=== PATIENT | male | born 1945 | race African-American/Black ===

== ENCOUNTER 2021-09-10 16:52 | Inpatient (IN) ==
[2021-09-10] MEDS ORDERED: SODIUM CHLORIDE 0.9% 1000ML 1,000 ML IV ONE (17:54)
--- NOTE | 2021-09-10 18:33 | XRay Report ---
SINGLE VIEW CHEST CLINICAL HISTORY: Atypical chest pain. FINDINGS: 2 AP, portable, upright chest radiographs are compared to study dated 08/18/2014. The heart is normal in size. There is abnormal density/configuration of the aortic arch/left hilum. The lungs a nd pleural spaces are clear. No pneumothorax is seen. The skeletal structures are osteopenic. The bon y thorax is grossly intact. IMPRESSION: 1. The lungs are clear. 2. There is abnormal density/configuration of the aortic arch. This is of indeterminant significance and correlation with a chest CT is recommended for further assessment. ACT 112: Negative or not required by law. Electronically signed by: Agustín Jeffries M.D. 09/10/2021 6:31 PM
--- NOTE | 2021-09-10 18:38 | CT Scan Report ---
CT SCAN OF THE BRAIN WITHOUT IV CONTRAST CLINICAL HISTORY: Generalized weakness. COMPARISON STUDY: CT of the brain dated 08/18/2014. MRI of the brain dated 08/19/2014. TECHNIQUE: Unenhanced axial CT scan of the brain is performed from the vertex to the skull base. A do se lowering technique was utilized adhering to the principles of ALARA. CT DOSE: 994.86 mGycm FINDINGS: Brain parenchyma: There are age-related involutional changes noting minimal subcortical and perivent ricular microangiopathic change. There is no hemorrhage, mass effect, or evidence of acute territoria l ischemia by CT criteria. Low-attenuation within the right periventricular white matter is unchanged and consistent with a remote insult. 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 Candelario-white matter differentiation is preserved. No extra-axial fluid rosy ection is seen. Ventricles, sulci, cisterns: Prominent secondary to involutional change. Intracranial vasculature: There is mild atherosclerotic calcification of the cavernous carotid arteri es. Calvarium: Unremarkable. Sinuses and mastoids: The visualized paranasal sinuses are clear. The mastoid air cells are well pneu matized. Orbits: The bony orbits are grossly intact. IMPRESSION: There is no hemorrhage, mass effect, or evidence of acute territorial ischemia by CT denise pringle. ACT 112: Negative or not required by law. Electronically signed by: Agustín Jeffries M.D. 09/10/2021 6:37 PM
[2021-09-10 18:55] LABS: Eosinophils # (auto) 0.01 K/uL (0-0.5); Hematocrit (blood only) 31.7 % (42-52); Hemoglobin 10.8 g/dL (14.0-18.0); Immature Granulocytes % (auto) 0.5 %; Lymphocytes # (auto) 0.84 K/uL (1.2-3.4); Lymphocytes % (auto) 3.9 %; Mean Corpuscular Hemoglobin 32.3 pg (25-34); Mean Corpuscular Hgb Conc 34.1 g/dL (32-36); Mean Corpuscular Volume 94.9 fL (80-100); Mean Platelet Volume 9.5 fL (7.4-10.4); Monocytes # (auto) 1.11 K/uL (0.11-0.59); Monocytes % (auto) 5.1 %; Neutrophils # (auto) 19.55 K/uL (1.4-6.5); Neutrophils % (auto) 90.5 %; Platelet Count 352 K/uL (130-400); RDW Coefficient of Variation 14.7 % (11.5-14.5); Red Blood Count 3.34 M/uL (4.7-6.1); White Blood Count 21.61 K/uL (4.8-10.8)
[2021-09-10 19:23] LABS: Albumin Level 2.4 gm/dl (3.4-5.0); BUN Creatinine Ratio 18.1 (10-20); Calcium 8.7 mg/dl (8.5-10.1); Creatinine Clr Calc Pharmacy 16.7 ml/min; Est GFR (African American) 22.5 ml/min; Est GFR (Non-African American) 19.4 ml/min; Magnesium 2.2 mg/dl (1.8-2.4); Potassium 4.9 mmol/L (3.5-5.1)
[2021-09-10 19:45] LABS: Albumin Globulin Ratio 0.6 (0.9-2); Globulin 4.2 gm/dl (2.5-4.0); Phosphorus 4.6 mg/dl (2.5-4.9); Total Protein 6.6 gm/dl (6.4-8.2); Troponin I 0.061 ng/ml (0-0.045)
--- NOTE | 2021-09-10 21:21 | Emergency Department Note ---
Impression & Plan Acute on chronic kidney failure, Leukocytosis, Lesion of liver, Ileocolic intussusception, Elevated lactic acid level ED Provider Note NAME: ANTHONY CHAWLA AGE: 75 SEX: M ARRIVES VIA: Walk-In INFORMANT: Patient, ED PROVIDER(S): Moinco Daniel MD CHIEF COMPLAINT: Weakness, decreased oral intake. 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 He denies any cough, congestion, fevers, chills, nausea/vomiting, diarrhea or urinary symptoms. He has been vaccinated for COVID-19 numerous months ago and is due to get his booster this month. He denies any known COVID-19 exposures. On arrival the patient is fatigued appearing but no acute distress, afebrile with stable vital signs. Of note, BP 70/40s upon arriving to triage however normotensive subsquently. He appears clinically dry. 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 He has no new focal neurologic deficits. Abdomen is benign. EKG without overt acute ischemia. Chest x-ray without acute cardiopulmonary process and note of abnormal density/configuration of the aortic arch which does appear similar to previous chest x-ray in 2014. WBC 21.6K, H/H 10.8/31.7 without recent values for comparison. Platelets within normal limits. Chemistry without metabolic acidosis. Creatinine is 3 increased from patient's baseline of 1.5-2. Initial lactic acid elevated at 2.5 which did normalize to 1.6 following IV fluid hydration. LFTs are elevated with AST 620, ALT 180 and alk phos 320 without recent values for comparison. Total bilirubin is 1.0. Troponin is mildly elevated at 0.061, however given no chest pain unlikely represent acute cardiac process. Lipase not elevated. Procalcitonin is elevated at 40 however in the setting of acute on chronic renal failure. UA without convincing evidence of infection. COVID-[address] of the chest and abdomen pelvis was performed without contrast given the patient's renal insufficiency. These findings were notable for numerous liver lesions suspicious for hepatic metastases as well as ileocolic intussusception with suspicion for underlying colonic lesion. Upon reevaluation the patient did report feeling improved after IV fluid hydration. I did review these findings with him and he agreed with plan for admission. Patient was treated empirically with Zosyn and Daptomycin following blood cultures. Case was discussed with Dr. Wright, [facility], who will evaluate the patient for admission. Triage Nursing notes reviewed and agree them. Prior medical records reviewed Vital Signs: reviewed and remarkable for low blood pressure. Differential diagnosis: Infection, dehydration, metabolic abnormality, hypo/hyperglycemia, electrolyte disturbance, anemia, hypoxia, cardiac sources, intracerebral event, toxicologic, neurologic, as well as other pathologies. ER treatment provided: See below. Diagnostics interpreted by me: ECG: Sinus tachycardia 110 bpm, no ectopy, no overt ST elevation or depression, QTC 414, QRS 64. Cardiac Monitoring: An order for continuous cardiac monitoring was placed and demonstrated Sinus tachycardia 110 bpm, no ectopy. Laboratory studies: See below Imaging studies: See below Consultation(s): Case was discussed with Dr. Wright, [facility], who will evaluate the patient for admission. HPI: The patient is a pleasant 75-year-old gentleman with a past medical history of CKD, hypertension, hyperparathyroidism, vitamin D deficiency, history of hemorrhagic stroke in 2002 with residual left-sided weakness who presents to emergency department accompanied by his personal trainer for evaluation of ongoing generalized weakness and decreased appetite over the past 4 days. He denies any cough, congestion, fevers, chills, nausea/vomiting, diarrhea or urinary symptoms. He has been vaccinated for COVID-19 numerous months ago and is due to get his booster this month. He denies any known COVID-19 exposures. ROS: See above HPI for pertinent positives & negatives. A total of 10 systems reviewed and were otherwise negative. PAST MEDICAL HISTORY:See Below PAST SURGICAL HISTORY:See Below FAMILY HISTORY:See Below SOCIAL HISTORY:See Below HOME MEDICATIONS:See Below ALLERGIES:See Below VITALS:See Below PHYSICAL EXAMINATION: GENERAL: Awake, alert, fatigued-appearing, in no distress HENT: Normocephalic, atraumatic. Oropharynx with dry mucous membranes and otherwise unremarkable. EYES: Normal conjunctiva. Sclera non-icteric. NECK: Supple. No nuchal rigidity. FROM. No JVD. RESPIRATORY: Clear to auscultation. CARDIAC: Regular rate, normal rhythm. Extremities warm and well perfused. Pulses equal. ABDOMEN: Soft, non-distended. No tenderness to palpation. No rebound or guarding. No masses. RECTAL: Deferred. MUSCULOSKELETAL: Chest examination reveals no tenderness. The back is symmetrical on inspection without obvious abnormality. There is no CVA tenderness to palpation. No joint edema. LOWER EXTREMITIES: Calves are equal size bilaterally and non-tender. No edema. No discoloration. 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 He has no new focal neurologic deficits. SKIN: No rash or jaundice noted. Monico Daniel MD Past Med/Surg History Medical History CKD (chronic kidney disease) Hyperlipidemia Hypertension Stroke Family History Other Heart disease Social History Smoking Status: Never smoker Feels Safe at Home: Yes Allergies Allergies Allergy/AdvReac Type Severity Reaction Status Date / Time No Known Allergies Allergy Unknown Verified 09/10/21 17:59 Home Meds Home Medications Medication Instructions Recorded Confirmed cholecalciferol (vitamin D3) 50 2,000 unit PO DAILY 09/10/21 09/10/21 mcg (2,000 unit) capsule (Vitamin D3) diltiazem HCl 180 mg 360 mg PO DAILY 09/10/21 09/10/21 capsule,extended release 24 hr hydralazine 25 mg tablet 25 mg PO TID 09/10/21 09/10/21 lisinopril 5 mg tablet 5 mg PO DAILY 09/10/21 09/10/21 metoprolol tartrate 25 mg tablet 12.5 mg PO BID 09/10/21 09/11/21 simvastatin 20 mg tablet 20 mg PO DAILY 09/10/21 09/10/21 calcitriol 0.5 mcg capsule 0.5 mcg PO DAILY 09/11/21 09/11/21 Results & Data (ED) Vital Signs Vital Signs - 24 hr 09/10/21 16:59 09/10/21 17:35 09/10/21 17:36 Temperature 36.4 C L Temperature Source Oral Pulse Rate 120 H 107 H Pulse Rate [Apical] 105 H Pulse Rate from SpO2 Sensor Respiratory Rate 20 22 20 Respiratory Effort / Characteristics Non-Labored Spontaneous Respiratory Depth Normal Blood Pressure 73/45 L Blood Pressure [Right Arm] 114/68 Blood Pressure Mean 54 Blood Pressure Mean [Right Arm] 83 Pulse Oximetry 97 95 Oxygen Delivery Method Room Air Room Air Sepsis Recent Fever Within 48 Hours No Sepsis New/Unexplained Change in Mental Status N/A Sepsis Action Taken by Nursing No Action Required 09/10/21 17:49 09/10/21 18:00 09/10/21 19:00 Temperature Temperature Source Pulse Rate 100 H 88 Pulse Rate [Apical] Pulse Rate from SpO2 Sensor 90 Respiratory Rate 18 15 Respiratory Effort / Characteristics Respiratory Depth Blood Pressure 110/71 Blood Pressure [Right Arm] Blood Pressure Mean 84 Blood Pressure Mean [Right Arm] Pulse Oximetry 95 98 Oxygen Delivery Method Room Air Room Air Sepsis Recent Fever Within 48 Hours Sepsis New/Unexplained Change in Mental Status Sepsis Action Taken by Nursing 09/10/21 19:30 09/10/21 20:00 09/10/21 20:30 Temperature Temperature Source Pulse Rate 85 80 70 Pulse Rate [Apical] Pulse Rate from SpO2 Sensor 86 82 72 Respiratory Rate 17 15 12 Respiratory Effort / Characteristics Respiratory Depth Blood Pressure 116/71 111/69 104/64 Blood Pressure [Right Arm] Blood Pressure Mean 86 83 77 Blood Pressure Mean [Right Arm] Pulse Oximetry 98 99 99 Oxygen Delivery Method Room Air Room Air Room Air Sepsis Recent Fever Within 48 Hours Sepsis New/Unexplained Change in Mental Status Sepsis Action Taken by Nursing 09/10/21 21:00 09/10/21 21:30 09/10/21 22:00 Temperature Temperature Source Pulse Rate 79 77 77 Pulse Rate [Apical] Pulse Rate from SpO2 Sensor 80 78 78 Respiratory Rate 13 5 L 4 L Respiratory Effort / Characteristics Respiratory Depth Blood Pressure 113/68 112/67 120/64 Blood Pressure [Right Arm] Blood Pressure Mean 83 82 82 Blood Pressure Mean [Right Arm] Pulse Oximetry 99 99 98 Oxygen Delivery Method Room Air Room Air Room Air Sepsis Recent Fever Within 48 Hours Sepsis New/Unexplained Change in Mental Status Sepsis Action Taken by Nursing 09/10/21 22:30 09/10/21 23:00 09/11/21 00:00 Temperature Temperature Source Pulse Rate 84 82 84 Pulse Rate [Apical] Pulse Rate from SpO2 Sensor 85 83 85 Respiratory Rate 19 17 12 Respiratory Effort / Characteristics Respiratory Depth Blood Pressure 110/68 108/64 106/61 Blood Pressure [Right Arm] Blood Pressure Mean 82 78 76 Blood Pressure Mean [Right Arm] Pulse Oximetry 98 99 99 Oxygen Delivery Method Room Air Room Air Room Air Sepsis Recent Fever Within 48 Hours Sepsis New/Unexplained Change in Mental Status Sepsis Action Taken by Nursing 09/11/21 00:30 09/11/21 01:00 Temperature Temperature Source Pulse Rate 82 75 Pulse Rate [Apical] Pulse Rate from SpO2 Sensor 82 75 Respiratory Rate 10 L 12 Respiratory Effort / Characteristics Respiratory Depth Blood Pressure 113/60 108/59 L Blood Pressure [Right Arm] Blood Pressure Mean 77 75 Blood Pressure Mean [Right Arm] Pulse Oximetry 99 98 Oxygen Delivery Method Room Air Room Air Sepsis Recent Fever Within 48 Hours Sepsis New/Unexplained Change in Mental Status Sepsis Action Taken by Nursing Laboratory Data Attestation: I reviewed the patient's lab results. Result diagrams: 09/10/21 18:46 09/10/21 18:46 Lab Results 09/10/21 09/10/21 09/10/21 Range/Units 18:08 18:08 18:46 WBC (4.8-10.8) K/uL RBC (4.7-6.1) M/uL Hgb (14.0-18.0) g/dL Hct (42-52) % MCV (80-100) fL MCH (25-34) pg MCHC (32-36) g/dL RDW Std Deviation (36.4-46.3) fL RDW Coeff of Cliff (11.5-14.5) % Plt Count (130-400) K/uL MPV (7.4-10.4) fL Immature Gran % (Auto) % Neut % (Auto) % Lymph % (Auto) % [place] % (Auto) % Eos % (Auto) % Baso % (Auto) % Neut # (Auto) (1.4-6.5) K/uL Lymph # (Auto) (1.2-3.4) K/uL [place] # (Auto) (0.11-0.59) K/uL Eos # (Auto) (0-0.5) K/uL Baso # (Auto) (0-0.2) K/uL Immature Gran # (Auto) (0.00-0.02) K/uL Sodium 144 (136-145) mmol/L Potassium 4.9 (3.5-5.1) mmol/L Chloride 110 H (98-107) mmol/L Carbon Dioxide 23 (21-32) mmol/L Anion Gap 11.0 (3-11) BUN 55 H (7-18) mg/dl Creatinine 3.04 H (0.6-1.4) mg/dl Est Cr Clr Drug Dosing 16.7 ml/min Est GFR ( Amer) 22.5 ml/min Est GFR (Non-Af Amer) 19.4 ml/min BUN/Creatinine Ratio 18.1 (10-20) Glucose 110 H (70-99) mg/dl Lactate (0.4-2.0) mmol/L Calcium 8.7 (8.5-10.1) mg/dl Phosphorus 4.6 (2.5-4.9) mg/dl Magnesium 2.2 (1.8-2.4) mg/dl Total Bilirubin 1.0 (0.2-1) mg/dl AST 620 H (15-37) U/L ALT 180 H (12-78) U/L Alkaline Phosphatase 321 H (45-117) U/L Troponin I 0.061 H* (0-0.045) ng/ml Total Protein 6.6 (6.4-8.2) gm/dl Albumin 2.4 L (3.4-5.0) gm/dl Globulin 4.2 H (2.5-4.0) gm/dl Albumin/Globulin Ratio 0.6 L (0.9-2) Lipase 105 (73-393) U/L Procalcitonin (0-0.5) ng/ml Urine Color Urine Appearance (Clear) Urine pH (4.5-7.5) Ur Specific Webb (1.000-1.030) Urine Protein (Negative) Urine Glucose (UA) (Negative) Urine Ketones (Negative) Urine Blood (Negative) Urine Nitrite (Negative) Urine Bilirubin (Negative) Urine Urobilinogen (Negative) Ur Leukocyte Esterase (Negative) Urine WBC (Auto) (0-5) /hpf Urine RBC (Auto) (0-4) /hpf U Hyaline Cast (Auto) (0-5) /lpf U Epithel Cells (Auto) (0-5) /lpf Urine Bacteria (Auto) (Negative) Ur Renal Epithelial Cell Urine Yeast COVID-19 Eval Order [address]19 [facility] SARS-CoV-2 (PCR) NEGATIVE (Negative) 09/10/21 09/10/21 09/10/21 Range/Units 18:46 20:07 20:07 WBC 21.61 H (4.8-10.8) K/uL RBC 3.34 L (4.7-6.1) M/uL Hgb 10.8 L (14.0-18.0) g/dL Hct 31.7 L (42-52) % MCV 94.9 (80-100) fL MCH 32.3 (25-34) pg MCHC 34.1 (32-36) g/dL RDW Std Deviation 51.0 H (36.4-46.3) fL RDW Coeff of Cliff 14.7 H (11.5-14.5) % Plt Count 352 (130-400) K/uL MPV 9.5 (7.4-10.4) fL Immature Gran % (Auto) 0.5 % Neut % (Auto) 90.5 % Lymph % (Auto) 3.9 % [place] % (Auto) 5.1 % Eos % (Auto) 0.0 % Baso % (Auto) 0.0 % Neut # (Auto) 19.55 H (1.4-6.5) K/uL Lymph # (Auto) 0.84 L (1.2-3.4) K/uL [place] # (Auto) 1.11 H (0.11-0.59) K/uL Eos # (Auto) 0.01 (0-0.5) K/uL Baso # (Auto) 0.00 (0-0.2) K/uL Immature Gran # (Auto) 0.10 H (0.00-0.02) K/uL Sodium (136-145) mmol/L Potassium (3.5-5.1) mmol/L Chloride (98-107) mmol/L Carbon Dioxide (21-32) mmol/L Anion Gap (3-11) BUN (7-18) mg/dl Creatinine (0.6-1.4) mg/dl Est Cr Clr Drug Dosing ml/min Est GFR ( Amer) ml/min Est GFR (Non-Af Amer) ml/min BUN/Creatinine Ratio (10-20) Glucose (70-99) mg/dl Lactate 2.5 H* (0.4-2.0) mmol/L Calcium (8.5-10.1) mg/dl Phosphorus (2.5-4.9) mg/dl Magnesium (1.8-2.4) mg/dl Total Bilirubin (0.2-1) mg/dl AST (15-37) U/L ALT (12-78) U/L Alkaline Phosphatase (45-117) U/L Troponin I (0-0.045) ng/ml Total Protein (6.4-8.2) gm/dl Albumin (3.4-5.0) gm/dl Globulin (2.5-4.0) gm/dl Albumin/Globulin Ratio (0.9-2) Lipase (73-393) U/L Procalcitonin 40.28 H (0-0.5) ng/ml Urine Color Urine Appearance (Clear) Urine pH (4.5-7.5) Ur Specific Webb (1.000-1.030) Urine Protein (Negative) Urine Glucose (UA) (Negative) Urine Ketones (Negative) Urine Blood (Negative) Urine Nitrite (Negative) Urine Bilirubin (Negative) Urine Urobilinogen (Negative) Ur Leukocyte Esterase (Negative) Urine WBC (Auto) (0-5) /hpf Urine RBC (Auto) (0-4) /hpf U Hyaline Cast (Auto) (0-5) /lpf U Epithel Cells (Auto) (0-5) /lpf Urine Bacteria (Auto) (Negative) Ur Renal Epithelial Cell Urine Yeast COVID-19 Eval Order SARS-CoV-2 (PCR) (Negative) 09/10/21 09/10/21 Range/Units 20:49 22:07 WBC (4.8-10.8) K/uL RBC (4.7-6.1) M/uL Hgb (14.0-18.0) g/dL Hct (42-52) % MCV (80-100) fL MCH (25-34) pg MCHC (32-36) g/dL RDW Std Deviation (36.4-46.3) fL RDW Coeff of Cliff (11.5-14.5) % Plt Count (130-400) K/uL MPV (7.4-10.4) fL Immature Gran % (Auto) % Neut % (Auto) % Lymph % (Auto) % [place] % (Auto) % Eos % (Auto) % Baso % (Auto) % Neut # (Auto) (1.4-6.5) K/uL Lymph # (Auto) (1.2-3.4) K/uL [place] # (Auto) (0.11-0.59) K/uL Eos # (Auto) (0-0.5) K/uL Baso # (Auto) (0-0.2) K/uL Immature Gran # (Auto) (0.00-0.02) K/uL Sodium (136-145) mmol/L Potassium (3.5-5.1) mmol/L Chloride (98-107) mmol/L Carbon Dioxide (21-32) mmol/L Anion Gap (3-11) BUN (7-18) mg/dl Creatinine (0.6-1.4) mg/dl Est Cr Clr Drug Dosing ml/min Est GFR ( Amer) ml/min Est GFR (Non-Af Amer) ml/min BUN/Creatinine Ratio (10-20) Glucose (70-99) mg/dl Lactate 1.6 (0.4-2.0) mmol/L Calcium (8.5-10.1) mg/dl Phosphorus (2.5-4.9) mg/dl Magnesium (1.8-2.4) mg/dl Total Bilirubin (0.2-1) mg/dl AST (15-37) U/L ALT (12-78) U/L Alkaline Phosphatase (45-117) U/L Troponin I (0-0.045) ng/ml Total Protein (6.4-8.2) gm/dl Albumin (3.4-5.0) gm/dl Globulin (2.5-4.0) gm/dl Albumin/Globulin Ratio (0.9-2) Lipase (73-393) U/L Procalcitonin (0-0.5) ng/ml Urine Color Dark Yellow Urine Appearance Cloudy A (Clear) Urine pH 5.0 (4.5-7.5) Ur Specific Webb 1.020 (1.000-1.030) Urine Protein 2+ H (Negative) Urine Glucose (UA) Negative (Negative) Urine Ketones Trace H (Negative) Urine Blood Trace H (Negative) Urine Nitrite Negative (Negative) Urine Bilirubin 1+ H (Negative) Urine Urobilinogen Positive H (Negative) Ur Leukocyte Esterase Negative (Negative) Urine WBC (Auto) 1-5 (0-5) /hpf Urine RBC (Auto) 0-4 (0-4) /hpf U Hyaline Cast (Auto) 1-5 (0-5) /lpf U Epithel Cells (Auto) >30 H (0-5) /lpf Urine Bacteria (Auto) Negative (Negative) Ur Renal Epithelial Cell Not Reportable Urine Yeast Not Reportable COVID-19 Eval Order SARS-CoV-2 (PCR) (Negative) Administered Medications Discontinued Medications Sodium Chloride (Nss 1000ml) 1,000 mls @ 999 mls/hr IV .[id number] ONE Stop: 09/10/21 18:54 Last Infusion: 09/10/21 19:10 Dose: 0 mls/hr Documented by: [id number] Admin: 09/10/21 18:09 Dose: 999 mls/hr Documented by: [id number] Piperacillin Sod/Tazobactam Sod (Zosyn) 4.5 gm in 120 mls @ 240 mls/hr IV NOW ONE Stop: 09/10/21 22:09 Last Infusion: 09/10/21 23:31 Dose: 0 mls/hr Documented by: [id number] Admin: 09/10/21 23:01 Dose: 240 mls/hr Documented by: [id number] Daptomycin 475 mg/ Syringe 9.5 mls @ 4.75 mls/min IV NOW ONE; Protocol Stop: 09/10/21 21:46 Last Admin: 09/10/21 23:00 Dose: 4.75 mls/min Documented by: [id number] Imaging Data Radiologist's Impression: Chest X-Ray 09/10/21 17:54 SINGLE VIEW CHEST CLINICAL HISTORY: Atypical chest pain. FINDINGS: 2 AP, portable, upright chest radiographs are compared to study dated 08/18/2014. The heart is normal in size. There is abnormal density/configuration of the aortic arch/left hilum. The lungs and pleural spaces are clear. No pneumothorax is seen. The skeletal structures are osteopenic. The bony thorax is grossly intact. IMPRESSION: 1. The lungs are clear. 2. There is abnormal density/configuration of the aortic arch. This is of indeterminant significance and correlation with a chest CT is recommended for further assessment. ACT 112: Negative or not required by law. Electronically signed by: gAustín Jeffries M.D. 09/10/2021 6:[address] 09/10/21 17:57 CT SCAN OF THE BRAIN WITHOUT IV CONTRAST CLINICAL HISTORY: Generalized weakness. COMPARISON STUDY: CT of the brain dated 08/18/2014. MRI of the brain dated 08/19/2014. TECHNIQUE: Unenhanced axial CT scan of the brain is performed from the vertex to the skull base. A dose lowering technique was utilized adhering to the principles of ALARA. CT DOSE: 994.86 mGycm FINDINGS: Brain parenchyma: There are age-related involutional changes noting minimal subcortical and periventricular microangiopathic change. There is no hemorrhage, mass effect, or evidence of acute territorial ischemia by CT criteria. Low-attenuation within the right periventricular white matter is unchanged and consistent with a remote insult. Chronic infarcts are again seen in the right thalamus and the right cerebellar hemisphere. Candelario-white matter differentiation is preserved. No extra-axial fluid collection is seen. Ventricles, sulci, cisterns: Prominent secondary to involutional change. Intracranial vasculature: There is mild atherosclerotic calcification of the cavernous carotid arteries. Calvarium: Unremarkable. Sinuses and mastoids: The visualized paranasal sinuses are clear. The mastoid air cells are well pneumatized. Orbits: The bony orbits are grossly intact. IMPRESSION: There is no hemorrhage, mass effect, or evidence of acute territorial ischemia by CT criteria. ACT 112: Negative or not required by law. Electronically signed by: Agustín Jeffries M.D. 09/10/2021 6:37 PM Abdomen/Pelvis CT 09/10/21 19:53 CT SCAN OF THE CHEST, ABDOMEN, AND PELVIS WITHOUT IV CONTRAST CLINICAL HISTORY: Generalized weakness. Leukocytosis. COMPARISON STUDY: Chest x-ray dated 09/10/2021. TECHNIQUE: Unenhanced CT scan of the chest, abdomen, and pelvis was performed from the thoracic inlet to the proximal femora. Images are reviewed in the axial, sagittal, and coronal planes. IV contrast was not administered due to po or renal function. Note that the examination was performed in significantly suboptimal fashion without oral and IV contrast. There is motion artifact, as well as streak artifact from the arms which could not be elevated above the chest or abdomen. A dose lowering technique was utilized adhering to the principles of ALARA. CT DOSE: 483.62 mGy.cm FINDINGS: CHEST: Thyroid: The thyroid gland is enlarged and heterogeneous. Low-attenuation nodules measure up to 2.7 cm. Thoracic aorta: The thoracic aorta is normal in caliber and demonstrates standard 3-vessel arch anatomy. There is uncoiling of the thoracic aorta. Heart: The heart is normal in size and without pericardial effusion. There are scattered coronary artery calcifications. Lungs and pleural spaces: There is no airspace consolidation or pleural effusion. Scarring/atelectasis is noted at the lung bases. The trachea and central airways are clear. A 4 mm left lower lobe pulmonary nodule is seen on image #[id number]. Mediastinum: There is no mediastinal lymphadenopathy. Miranda: Not well assessed without IV contrast. Axillae: There is no axillary lymphadenopathy. Bony thorax: The skeletal structures are osteopenic. Mild degenerative change is noted in the thoracic spine and shoulders. No lytic or blastic lesions are identified. ABDOMEN AND PELVIS: Liver: The unenhanced liver is enlarged, measuring 18.7 cm in length. The liver is is markedly heterogeneous in attenuation, and the liver appears to be infiltrated by numerous mass lesions measuring up to 3 cm. There is no intrahepatic biliary ductal dilatation. Gallbladder: Unremarkable. Spleen: Normal in size and attenuation. Pancreas: The unenhanced pancreas is grossly unremarkable. Adrenal glands: Unremarkable. Kidneys: The unenhanced kidneys demonstrate mild cortical atrophy and are without hydronephrosis. No renal calculi are identified. Abdominal vasculature: The abdominal aorta is normal in course and caliber noting mild atherosclerotic calcification. Bowel: Findings suggesting ileocolic intussusception with surrounding infiltration and trace fluid There is no evidence of upstream bowel obstruction. Underlying mass lesion is not excluded. Mild fatty infiltration is seen in the right lower quadrant. The appendix is not visualized. Peritoneum: There is no intraperitoneal free air or abdominal ascites. Lymphadenopathy: None. Pelvic viscera: The prostate gland is enlarged and heterogeneous noting median lobe hypertrophy. The bladder wall appears thickened and trabeculated indicating chronic outlet obstruction. There is a punctate focus of gas within the bladder lumen and mild pericystic infiltration. Skeletal structures: The skeletal structures are osteopenic. No lytic or blastic lesions are seen. Soft tissues: The patient is cachectic. IMPRESSION: 1. Significantly suboptimal examination without oral and IV contrast. There is also streak and motion artifact. 2. There is no airspace consolidation or pleural effusion. 3. The abnormal density seen on chest x-ray corresponds to uncoiling of the normal caliber thoracic aorta. 4. The liver is enlarged and is infiltrated by numerous low-attenuation mass lesions. These are pathologically indeterminant but concerning for multifocal hepatic metastatic disease. 5. There is evidence of ileocolic intussusception with mild surrounding infiltration and fluid. Given the hepatic findings, an underlying colon mass most be considered. Correlation with a contrast-enhanced CT scan of the abdomen when the patient is clinically able is recommended. Colonoscopy could also be considered for further evaluation of the right colon. 6. The appendix is not identified. Acute appendicitis is considered less likely. 7. There is no evidence of upstream bowel obstruction. 8. Cachexia. 9. A small focus of gas within the bladder lumen is nonspecific and may be related to instrumentation. Correlate with clinical findings and urinalysis. 10. A 4 mm indeterminate pulmonary nodule is seen in the left lower lobe. If clinically warranted this can be followed as per the Fleischner criteria below. 11. Additional findings as above. Please refer to below summary of Fleischner criteria recommendations for follow- up of incidental CT nodules (Rj Hu, Guidelines for management of small pulmonary nodules detected on CT scans: A statement from the Fleischner Society, Radiology 237: [id number].) SOLID NODULES Solitary nodule size: <6 mm * low risk patients: no follow-up needed * high risk patients: optional CT at 12 months Solitary nodule size: 6-8 mm * low risk patients: follow-up at 6-12 months, then consider further follow-up at 18-24 months * high risk patients: initial follow-up CT at 6-12 months and then at 18-24 months if no change Solitary nodule size: >8 mm * either low or high risk patients - consider follow-up CT at 3 months, and/or CT-PET, and/or biopsy Multiple nodules size: <6 mm * low risk patients: no routine follow-up * high risk patients: optional CT at 12 months Multiple nodules size: 6-8 mm * low risk patients: follow-up at 3-6 months, then consider further follow-up at 18-24 months * high risk patients: follow-up at 3-6 months, then at 18-24 months if no change Multiple nodules size: >8 mm * low risk patients: follow-up at 3-6 months, then consider further follow-up at 18-24 months * high risk patients: follow-up at 3-6 months, then at 18-24 months if no change Note: newly detected indeterminate nodule in persons 35 years of age or older. * low risk patients: minimal or absent history of smoking and/or other known risk factors * high risk patients: history of smoking or of other known risk factors (e.g. first degree relative with lung cancer, or exposure to asbestos, radon, uranium) * if a nodule up to 8 mm is partly solid or is ground glass further follow-up is required after 24 months to exclude possible slow growing adenocarcinoma ([facility]EN) SUBSOLID NODULES Solitary pure ground-glass nodule * nodule size <6 mm - no CT follow-up required * nodule size >=6 mm - follow-up CT at 6-12 months, then every 2 years until 5 years Solitary part-solid nodule * nodule size <6 mm - no CT follow-up required * nodule size >=6 mm - follow-up CT at 3-6 months. If unchanged, and solid component remains <6 mm, then annual follow-up for 5 years Multiple subsolid nodules * nodule size <6 mm - follow-up CT at 3-6 months, consider further follow-up at 2 and 4 years if stable * nodule size >=6 mm - follow-up CT at 3-6 months, subsequent management based on the most suspicious nodule(s) ACT 112: Negative or not required by law. Electronically signed by: Agustín Jeffries M.D. 09/10/2021 10:[address] 09/10/21 19:53 CT SCAN OF THE CHEST, ABDOMEN, AND PELVIS WITHOUT IV CONTRAST CLINICAL HISTORY: Generalized weakness. Leukocytosis. COMPARISON STUDY: Chest x-ray dated 09/10/2021. TECHNIQUE: Unenhanced CT scan of the chest, abdomen, and pelvis was performed from the thoracic inlet to the proximal femora. Images are reviewed in the axial, sagittal, and coronal planes. IV contrast was not administered due to poor renal function. Note that the examination was performed in significantly suboptimal fashion without oral and IV contrast. There is motion artifact, as well as streak artifact from the arms which could not be elevated above the chest or abdomen. A dose lowering technique was utilized adhering to the principles of ALARA. CT DOSE: 483.62 mGy.cm FINDINGS: CHEST: Thyroid: The thyroid gland is enlarged and heterogeneous. Low-attenuation nodules measure up to 2.7 cm. Thoracic aorta: The thoracic aorta is normal in caliber and demonstrates standard 3-vessel arch anatomy. There is uncoiling of the thoracic aorta. Heart: The heart is normal in size and without pericardial effusion. There are scattered coronary artery calcifications. Lungs and pleural spaces: There is no airspace consolidation or pleural effusion. Scarring/atelectasis is noted at the lung bases. The trachea and central airways are clear. A 4 mm left lower lobe pulmonary nodule is seen on image #249. Mediastinum: There is no mediastinal lymphadenopathy. Miranda: Not well assessed without IV contrast. Axillae: There is no axillary lymphadenopathy. Bony thorax: The skeletal structures are osteopenic. Mild degenerative change is noted in the thoracic spine and shoulders. No lytic or blastic lesions are identified. ABDOMEN AND PELVIS: Liver: The unenhanced liver is enlarged, measuring 18.7 cm in length. The liver is is markedly heterogeneous in attenuation, and the liver appears to be infiltrated by numerous mass lesions measuring up to 3 cm. There is no intrahepatic biliary ductal dilatation. Gallbladder: Unremarkable. Spleen: Normal in size and attenuation. Pancreas: The unenhanced pancreas is grossly unremarkable. Adrenal glands: Unremarkable. Kidneys: The unenhanced kidneys demonstrate mild cortical atrophy and are without hydronephrosis. No renal calculi are identified. Abdominal vasculature: The abdominal aorta is normal in course and caliber noting mild atherosclerotic calcification. Bowel: Findings suggesting ileocolic intussusception with surrounding infiltration and trace fluid There is no evidence of upstream bowel obstruction. Underlying mass lesion is not excluded. Mild fatty infiltration is seen in the right lower quadrant. The appendix is not visualized. Peritoneum: There is no intraperitoneal free air or abdominal ascites. Lymphadenopathy: None. Pelvic viscera: The prostate gland is enlarged and heterogeneous noting median lobe hypertrophy. The bladder wall appears thickened and trabeculated indicating chronic outlet obstruction. There is a punctate focus of gas within the bladder lumen and mild pericystic infiltration. Skeletal structures: The skeletal structures are osteopenic. No lytic or blastic lesions are seen. Soft tissues: The patient is cachectic. IMPRESSION: 1. Significantly suboptimal examination without oral and IV contrast. There is also streak and motion artifact. 2. There is no airspace consolidation or pleural effusion. 3. The abnormal density seen on chest x-ray corresponds to uncoiling of the normal caliber thoracic aorta. 4. The liver is enlarged and is infiltrated by numerous low-attenuation mass lesions. These are pathologically indeterminant but concerning for multifocal he patic metastatic disease. 5. There is evidence of ileocolic intussusception with mild surrounding infiltration and fluid. Given the hepatic findings, an underlying colon mass most be considered. Correlation with a contrast-enhanced CT scan of the abdomen when the patient is clinically able is recommended. Colonoscopy could also be considered for further evaluation of the right colon. 6. The appendix is not identified. Acute appendicitis is considered less likely. 7. There is no evidence of upstream bowel obstruction. 8. Cachexia. 9. A small focus of gas within the bladder lumen is nonspecific and may be related to instrumentation. Correlate with clinical findings and urinalysis. 10. A 4 mm indeterminate pulmonary nodule is seen in the left lower lobe. If clinically warranted this can be followed as per the Fleischner criteria below. 11. Additional findings as above. Please refer to below summary of Fleischner criteria recommendations for follow- up of incidental CT nodules (Rj Hu, Guidelines for management of small pulmonary nodules detected on CT scans: A statement from the Fleischner Society, Radiology 237: [id number].) SOLID NODULES Solitary nodule size: <6 mm * low risk patients: no follow-up needed * high risk patients: optional CT at 12 months Solitary nodule size: 6-8 mm * low risk patients: follow-up at 6-12 months, then consider further follow-up at 18-24 months * high risk patients: initial follow-up CT at 6-12 months and then at 18-24 months if no change Solitary nodule size: >8 mm * either low or high risk patients - consider follow-up CT at 3 months, and/or CT-PET, and/or biopsy Multiple nodules size: <6 mm * low risk patients: no routine follow-up * high risk patients: optional CT at 12 months Multiple nodules size: 6-8 mm * low risk patients: follow-up at 3-6 months, then consider further follow-up at 18-24 months * high risk patients: follow-up at 3-6 months, then at 18-24 months if no change Multiple nodules size: >8 mm * low risk patients: follow-up at 3-6 months, then consider further follow-up at 18-24 months * high risk patients: follow-up at 3-6 months, then at 18-24 months if no change Note: newly detected indeterminate nodule in persons 35 years of age or older. * low risk patients: minimal or absent history of smoking and/or other known risk factors * high risk patients: history of smoking or of other known risk factors (e.g. first degree relative with lung cancer, or exposure to asbestos, radon, uranium) * if a nodule up to 8 mm is partly solid or is ground glass further follow-up is required after 24 months to exclude possible slow growing adenocarcinoma ([facility]) SUBSOLID NODULES Solitary pure ground-glass nodule * nodule size <6 mm - no CT follow-up required * nodule size >=6 mm - follow-up CT at 6-12 months, then every 2 years until 5 years Solitary part-solid nodule * nodule size <6 mm - no CT follow-up required * nodule size >=6 mm - follow-up CT at 3-6 months. If unchanged, and solid component remains <6 mm, then annual follow-up for 5 years Multiple subsolid nodules * nodule size <6 mm - follow-up CT at 3-6 months, consider further follow-up at 2 and 4 years if stable * nodule size >=6 mm - follow-up CT at 3-6 months, subsequent management based on the most suspicious nodule(s) ACT 112: Negative or not required by law. Electronically signed by: Agustín Jeffries M.D. 09/10/2021 10:52 PM Discharge Plan Visit Data Chief Complaint: Weakness Stated Complaint: WEAK, DEHYDRATED Discharge Problem: Acute on chronic kidney failure, Leukocytosis, Lesion of liver, Ileocolic intussusception, Elevated lactic acid level Forms Stand Alone Forms: [employer] Prescriptions Prescriptions: No Action diltiazem HCl 180 mg capsule,extended release 24hr 360 mg PO DAILY RF: 0 hydralazine 25 mg tablet 25 mg PO TID RF: 0 simvastatin 20 mg tablet 20 mg PO DAILY RF: 0 lisinopril 5 mg tablet 5 mg PO DAILY RF: 0 metoprolol tartrate 25 mg tablet 12.5 mg PO BID RF: 0 cholecalciferol (vitamin D3) [Vitamin D3] 50 mcg (2,000 unit) capsule 2,000 unit PO DAILY RF: 0 calcitriol 0.5 mcg capsule 0.5 mcg PO DAILY RF: 0 Referrals Referrals: Rajiv Monsalve DO [Primary Care Provider] -
[2021-09-10] MEDS ORDERED: PIPERACILL/TAZOBAC CONSULT ACTIVE PRN (21:40)
[2021-09-10] MEDS ORDERED: PIPERACILLIN/TAZOBACTAM 4.5 GM/120 ML BAG IV ONE (21:40)
[2021-09-10] MEDS ORDERED: DAPTOmycin 475 MG in SYRINGE 0 ML IV ONE (21:45)
[2021-09-10 22:03] LABS: Appearance Urine Cloudy (Clear); Bacteria Urine Automated Negative (Negative); Blood Urine Trace (Negative); Color Urine Dark Yellow; Epithelial Cell Urine Auto >30 /lpf (0-5); Glucose Urine UA Negative (Negative); Ketones Urine Trace (Negative); Leukocyte Esterase Urine Negative (Negative); Nitrite Urine Negative (Negative); Protein Urine 2+ (Negative); RBC Urine Automated 0-4 /hpf (0-4); Urobilinogen Urine Positive (Negative)
[2021-09-10 22:14] LABS: Bilirubin Urine 1+ (Negative)
--- NOTE | 2021-09-10 22:54 | CT Scan Report ---
CT SCAN OF THE CHEST, ABDOMEN, AND PELVIS WITHOUT IV CONTRAST CLINICAL HISTORY: Generalized weakness. Leukocytosis. COMPARISON STUDY: Chest x-ray dated 09/10/2021. TECHNIQUE: Unenhanced CT scan of the chest, abdomen, and pelvis was performed from the thoracic inlet to the proximal femora. Images are reviewed in the axial, sagittal, and coronal planes. IV contrast was not administered due to poor renal function. Note that the examination was performed in significa ntly suboptimal fashion without oral and IV contrast. There is motion artifact, as well as streak art ifact from the arms which could not be elevated above the chest or abdomen. A dose lowering technique was utilized adhering to the principles of ALARA. CT DOSE: 483.62 mGy.cm FINDINGS: CHEST: Thyroid: The thyroid gland is enlarged and heterogeneous. Low-attenuation nodules measure up to 2.7 c m. Thoracic aorta: The thoracic aorta is normal in caliber and demonstrates standard 3-vessel arch anato my. There is uncoiling of the thoracic aorta. Heart: The heart is normal in size and without pericardial effusion. There are scattered coronary art giana calcifications. Lungs and pleural spaces: There is no airspace consolidation or pleural effusion. Scarring/atelectasi s is noted at the lung bases. The trachea and central airways are clear. A 4 mm left lower lobe pulmo nary nodule is seen on image #249. Mediastinum: There is no mediastinal lymphadenopathy. Miranda: Not well assessed without IV contrast. Axillae: There is no axillary lymphadenopathy. Bony thorax: The skeletal structures are osteopenic. Mild degenerative change is noted in the thoraci c spine and shoulders. No lytic or blastic lesions are identified. ABDOMEN AND PELVIS: Liver: The unenhanced liver is enlarged, measuring 18.7 cm in length. The liver is is markedly hetero geneous in attenuation, and the liver appears to be infiltrated by numerous mass lesions measuring up to 3 cm. There is no intrahepatic biliary ductal dilatation. Gallbladder: Unremarkable. Spleen: Normal in size and attenuation. Pancreas: The unenhanced pancreas is grossly unremarkable. Adrenal glands: Unremarkable. Kidneys: The unenhanced kidneys demonstrate mild cortical atrophy and are without hydronephrosis. No renal calculi are identified. Abdominal vasculature: The abdominal aorta is normal in course and caliber noting mild atheroscleroti c calcification. Bowel: Findings suggesting ileocolic intussusception with surrounding infiltration and trace fluid Th ere is no evidence of upstream bowel obstruction. Underlying mass lesion is not excluded. Mild fatty infiltration is seen in the right lower quadrant. The appendix is not visualized. Peritoneum: There is no intraperitoneal free air or abdominal ascites. Lymphadenopathy: None. Pelvic viscera: The prostate gland is enlarged and heterogeneous noting median lobe hypertrophy. The bladder wall appears thickened and trabeculated indicating chronic outlet obstruction. There is a pun ctate focus of gas within the bladder lumen and mild pericystic infiltration. Skeletal structures: The skeletal structures are osteopenic. No lytic or blastic lesions are seen. Soft tissues: The patient is cachectic. IMPRESSION: 1. Significantly suboptimal examination without oral and IV contrast. There is also streak and motion artifact. 2. There is no airspace consolidation or pleural effusion. 3. The abnormal density seen on chest x-ray corresponds to uncoiling of the normal caliber thoracic a carolyn. 4. The liver is enlarged and is infiltrated by numerous low-attenuation mass lesions. These are patho logically indeterminant but concerning for multifocal hepatic metastatic disease. 5. There is evidence of ileocolic intussusception with mild surrounding infiltration and fluid. Given the hepatic findings, an underlying colon mass most be considered. Correlation with a contrast-enhan mariaelena CT scan of the abdomen when the patient is clinically able is recommended. Colonoscopy could also be considered for further evaluation of the right colon. 6. The appendix is not identified. Acute appendicitis is considered less likely. 7. There is no evidence of upstream bowel obstruction. 8. Cachexia. 9. A small focus of gas within the bladder lumen is nonspecific and may be related to instrumentation . Correlate with clinical findings and urinalysis. 10. A 4 mm indeterminate pulmonary nodule is seen in the left lower lobe. If clinically warranted thi s can be followed as per the Fleischner criteria below. 11. Additional findings as above. Please refer to below summary of Fleischner criteria recommendations for follow-up of incidental CT n odules (Rj Hu, Guidelines for management of small pulmonary nodules detected on CT scans: A sta tement from the Fleischner Society, Radiology 237: [phone].) SOLID NODULES Solitary nodule size: <6 mm * low risk patients: no follow-up needed * high risk patients: optional CT at 12 months Solitary nodule size: 6-8 mm * low risk patients: follow-up at 6-12 months, then consider further follow-up at 18-24 months * high risk patients: initial follow-up CT at 6-12 months and then at 18-24 months if no change Solitary nodule size: >8 mm * either low or high risk patients - consider follow-up CT at 3 months, and/or CT-PET, and/or biopsy Multiple nodules size: <6 mm * low risk patients: no routine follow-up * high risk patients: optional CT at 12 months Multiple nodules size: 6-8 mm * low risk patients: follow-up at 3-6 months, then consider further follow-up at 18-24 months * high risk patients: follow-up at 3-6 months, then at 18-24 months if no change Multiple nodules size: >8 mm * low risk patients: follow-up at 3-6 months, then consider further follow-up at 18-24 months * high risk patients: follow-up at 3-6 months, then at 18-24 months if no change Note: newly detected indeterminate nodule in persons 35 years of age or older. * low risk patients: minimal or absent history of smoking and/or other known risk factors * high risk patients: history of smoking or of other known risk factors (e.g. first degree relative with lung cancer, or exposure to asbestos, radon, uranium) * if a nodule up to 8 mm is partly solid or is ground glass further follow-up is required after 24 m onths to exclude possible slow growing adenocarcinoma ([facility]) SUBSOLID NODULES Solitary pure ground-glass nodule * nodule size <6 mm - no CT follow-up required * nodule size >=6 mm - follow-up CT at 6-12 months, then every 2 years until 5 years Solitary part-solid nodule * nodule size <6 mm - no CT follow-up required * nodule size >=6 mm - follow-up CT at 3-6 months. If unchanged, and solid component remains <6 mm, then annual follow-up for 5 years Multiple subsolid nodules * nodule size <6 mm - follow-up CT at 3-6 months, consider further follow-up at 2 and 4 years if sta ble * nodule size >=6 mm - follow-up CT at 3-6 months, subsequent management based on the most suspiciou s nodule(s) ACT 112: Negative or not required by law. Electronically signed by: Agustín Jeffries M.D. 09/10/2021 10:52 PM
[2021-09-11] MEDS ORDERED: ONDANSETRON INJ 2 MG/ML 2 ML VIAL IV PRN (05:23)
[2021-09-11] MEDS ORDERED: ACETAMINOPHEN 325 MG TAB PO PRN (05:23)
[2021-09-11] MEDS ORDERED: NITROGLYCERIN SL 0.4 MG/TAB TAB SL PRN (05:23)
[2021-09-11 07:11] LABS: Basophils # (auto) 0.01 K/uL (0-0.2); Basophils % (auto) 0.1 %; Hematocrit (blood only) 33.4 % (42-52); Hemoglobin 11.3 g/dL (14.0-18.0); Immature Granulocytes # (auto) 0.06 K/uL (0.00-0.02); Immature Granulocytes % (auto) 0.3 %; Lymphocytes # (auto) 0.91 K/uL (1.2-3.4); Lymphocytes % (auto) 5.3 %; Mean Corpuscular Hgb Conc 33.8 g/dL (32-36); Mean Corpuscular Volume 94.6 fL (80-100); Mean Platelet Volume 9.3 fL (7.4-10.4); Monocytes # (auto) 0.92 K/uL (0.11-0.59); Monocytes % (auto) 5.4 %; Neutrophils # (auto) 15.28 K/uL (1.4-6.5); Neutrophils % (auto) 88.9 %; Platelet Count 313 K/uL (130-400); RDW Coefficient of Variation 14.8 % (11.5-14.5); RDW Standard Deviation 50.8 fL (36.4-46.3); Red Blood Count 3.53 M/uL (4.7-6.1); White Blood Count 17.18 K/uL (4.8-10.8)
--- NOTE | 2021-09-11 08:01 | History and Physical Report ---
DATE OF ADMISSION: 09/10/2021. CHIEF COMPLAINT: Weakness. HISTORY OF PRESENT ILLNESS: This is a 75-year-old male with past medical history significant for hypertension, vitamin D deficiency, chronic kidney disease stage III, spastic hemiplegia and hemiparesis affecting the left, history of hemorrhagic stroke with a residual hemiparesis, who presents with ongoing weakness for the last 10 days. The patient lives alone, ambulates with a walker. His family lives near the [facility]. The patient says his home health nurse helps him with groceries and other stuff. He cooks his own food. He says these last 10 days he is feeling weak and tired, that is the reason he came to the ER today and the last few days also his appetite has decreased. He says he lost about 20-30 pounds in last 6 months. Denies any chest pain, no shortness of breath, no cough, no fever, no chills, no abdominal pain. Denies any blood in the stools or black stools. Denies any hematuria. Denies any swelling in the legs. No headache, no blurred visions, no earache, no runny nose, no sore throat, no cough, no fevers. Currently, resting comfortably and hemodynamically stable. ALLERGIES: No known drug allergies. PAST MEDICAL HISTORY: As mentioned above. PAST SURGICAL HISTORY: Tonsillectomy and adenoidectomy. MEDICATIONS: The patient is on calcitriol 0.5 mcg p.o. daily, vitamin D 1000 units p.o. daily, diltiazem 360 mg p.o. daily, hydralazine 25 mg p.o. t.i.d., lisinopril 5 mg p.o. daily, metoprolol tartrate 12.5 mg p.o. b.i.d., simvastatin 20 mg p.o. daily. FAMILY HISTORY: Significant for mother has heart disorder, father of old age. SOCIAL HISTORY: Currently lives alone. No smoking. Alcohol, rarely. No drug use. REVIEW OF SYSTEMS: As per HPI. Rest of review of systems is negative. PHYSICAL EXAMINATION: GENERAL: The patient is thin and frail, not in acute distress. VITAL SIGNS: Temperature 36.4, pulse 75, respiratory rate 12, blood pressure 108/59, oxygen 98% on room air. HEENT: Pupils equal, round and reactive to light. Oral mucosa moist. NECK: No JVD, no neck masses. CARDIOVASCULAR: S1 and S2 heard. Regular rate and rhythm. No murmur, no gallop. RESPIRATORY SYSTEM: Normal AP diameter. No accessory muscle use. No wheezing, no crackles. ABDOMEN: Soft, bowel sounds present, nontender, no distention. CENTRAL NERVOUS SYSTEM: Cranial nerves II-XII grossly intact, nonfocal. EXTREMITIES: No edema, no erythema. LABORATORY DATA: WBC 21.6, hemoglobin 10.8, hematocrit 31.7, platelets 352. Sodium 144, potassium 4.9, chloride 110, bicarbonate 23, BUN 55, creatinine 3.03, serum glucose 110. Lactate initially was 2.5, repeat is 1.6, calcium 8.7, phosphorus 4.6, magnesium 2.2, total bilirubin 1, AST of 620, ALT 180, alkaline phosphatase 321. Troponin 1 of 0.061. Lipase 105. Procalcitonin 40.28. Urinalysis, trace ketones, trace blood, +1 bilirubin. SARS-CoV-2 PCR negative. IMAGING DATA: CT of the chest without contrast, no airspace consolidation or pleural effusion. CT of abdomen and pelvis shows enlarged liver, numerous low attenuation mass lesions which are pathologically indeterminate, but concerning for multifocal hepatic metastatic disease. There is evidence of ileocolic intussusception with mild surrounding infiltration and fluid. Given the hepatic lesions an underlying colon mass must be considered. Acute appendicitis is considered less likely. No evidence of upstream bowel obstruction, cachexia. A 4 mm indeterminate pulmonary nodule seen in the left lower lobe. CT of the head, no acute findings. Chest x-ray, no acute findings. EKG: Sinus tachycardia at a rate of 110, bilateral atrial enlargement. ASSESSMENT AND PLAN: This is a 75-year-old male who presents with ongoing weakness and tiredness and loss of weight. 1. Weakness, tiredness, and loss of weight, poor appetite. Imaging study is showing multifocal metastatic hepatic disease and also questionable colon mass and intussusception. The patient is swallowing okay and no dysphagia , no nausea or vomiting. Bowels are moving okay, and is also having increased LFTs. We will follow the repeat labs. Keep him n.p.o., IV fluids. Consult GI and surgery in the a.m. for further recommendations. The patient says he never had a colonoscopy. 2. Hypertension: Continue home medication of hydralazine, diltiazem, and metoprolol. Will hold his lisinopril because of GEMMA. 3.Possible sepsis with leukocytosis and elevated lactic acid, lactic acid has normalized, and elevated procalcitonin, could be also from underlying malignancy. ER empirically started on Zosyn and daptomycin, which we will be continued for now until the cultures are available. Holding statin as the patient is on daptomycin. 3. Acute kidney injury on chronic kidney disease stage III: Baseline creatinine 1.8, presently with a creatinine of 3, because of ongoing illness. If not improving, will consult nephrology. Holding lisinopril. 4. History of hemorrhagic stroke with residual hemiparesis. PT, OT when stable. 5. Deep venous thrombosis prophylaxis: Heparin subcutaneous. DISPOSITION: Closely monitor in the med tele. PT/OT prior to discharge. Social service to help with discharge planning. Level 1 full code as per my discussion with the patient. Job ID: [id number] MTDD
[2021-09-11 08:19] LABS: BUN Creatinine Ratio 17.8 (10-20); Calcium 9.6 mg/dl (8.5-10.1); Est GFR (African American) 22.8 ml/min; Est GFR (Non-African American) 19.7 ml/min; Magnesium 2.3 mg/dl (1.8-2.4); Potassium 4.8 mmol/L (3.5-5.1)
--- NOTE | 2021-09-11 09:10 | Electrocardiogram Report ---
Test Reason : Blood Pressure : / mmHG Vent. Rate : 110 BPM Atrial Rate : 110 BPM P-R Int : 140 ms QRS Dur : 064 ms QT Int : 306 ms P-R-T Axes : 088 083 086 degrees QTc Int : 414 ms Sinus tachycardia Biatrial enlargement consider hyperacute T-waves Abnormal ECG When compared with ECG of 19-AUG-2014 10:17, MD interval has decreased Vent. rate has increased BY 63 BPM Confirmed by Chito Strong ([id number]) on 09/11/2021 9:09:05 AM Referred By: REFERRED SELF Confirmed By:Peter Strong
[2021-09-11] MEDS: hydrALAZINE HCL 25 MG TAB PO SCH ×3 (09:37→20:31)
[2021-09-11] MEDS: CALCITRIOL 0.25 MCG CAPSULE PO SCH (09:37)
[2021-09-11] MEDS: METOPROLOL TARTRATE 25 MG TAB PO SCH ×2 (09:37→20:31)
[2021-09-11] MEDS: dilTIAZem HCL 180 MG CAPCR PO SCH (09:37)
[2021-09-11] MEDS: CHOLECALCIFEROL 1,000 UNITS 25 MCG TAB PO SCH (09:37)
[2021-09-11] MEDS ORDERED: LAVAGE SOLUTION 4000ML PO ONE (10:00)
--- NOTE | 2021-09-11 10:01 | Gastrointestinal Consultation ---
Date of Consultation September 11, 2021 Assessment & Plan (1) Ileocolic intussusception: Agree with broad-spectrum antibiotics. Clear liquids p.o. today. IV fluids to optimize renal status. Prep for colonoscopy tomorrow. Further recommendations to follow colonoscopy. (2) Lesion of liver: See above plan. Supervising Physician Co-Signing Physician Notes I performed a history and physical examination of the patient today, including specifically on physical exam - soft abdomen. I have discussed the patient's management with the advanced practitioner. Please refer to the nurse practitioner's note for the documented findings and plan of care. Likely metastatic colon cancer based on imaging. Plan for colonoscopy tomorrow. History of Present Illness Reason for Consultation: Question colon mass Requesting Physician: Dr. Wright Attending Physician: Vijay Almaguer MD History of Present Illness Mr. 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 He lives alone, with some help from home nursing. He reports that, in the past month he has had approximately 20 pounds weight loss, and has been very fatigued, reports decreased appetite for the past few days, but denies any abdominal pain diarrhea constipation nausea or vomiting. He has not had any blood in his stools or black tarry stools. On arrival, CTAP scan suggested an ileocecal intussusception, liver with lesions suspicious for metastatic disease. He also has a acute on chronic renal injury with creatinine of 3 (baseline is 1.8 in April 2021). He has leukocytosis at 17. He is mildly anemic with hemoglobin 10.8 on arrival, 11.3 today (down from 13 in Aug 2020 and 12 in April 2021) and has not received transfusions. He appears frail but is awake alert oriented and hemodynamically stable. Allergies Allergy/AdvReac Type Severity Reaction Status Date / Time No Known Allergies Allergy Unknown Verified 09/10/21 17:59 Home Medications Medication Instructions Recorded Confirmed Type cholecalciferol (vitamin D3) 50 2,000 unit PO DAILY 09/10/21 09/10/21 History mcg (2,000 unit) capsule (Vitamin D3) diltiazem HCl 180 mg 360 mg PO DAILY 09/10/21 09/10/21 History capsule,extended release 24 hr hydralazine 25 mg tablet 25 mg PO TID 09/10/21 09/10/21 History lisinopril 5 mg tablet 5 mg PO DAILY 09/10/21 09/10/21 History metoprolol tartrate 25 mg tablet 12.5 mg PO BID 09/10/21 09/11/21 History simvastatin 20 mg tablet 20 mg PO DAILY 09/10/21 09/10/21 History calcitriol 0.5 mcg capsule 0.5 mcg PO DAILY 09/11/21 09/11/21 History Patient History Medical History CKD (chronic kidney disease) Hyperlipidemia Hypertension Stroke Family History Other Heart disease Social History Smoking Status: Never smoker Feels Safe at Home: Yes Assistive Devices: Brace/Splint/Immobilizer and Cane Review of Systems Review of Systems: ROS: Gen: + weakness, + loss of appetite, + weight loss, no fevers chills or sweats Eyes: No eye redness, or pain, no recent vision changes Resp: No SOB, no cough Cardio: No palpitations/irregular beats, no chest pain GI: No abdominal pain, no nausea/vomiting : Denies pain on urination Skin: No jaundice, itching or new rashes Neuro: Chronic left-sided weakness no new change A total of 12 systems reviewed, all others negative Physical Exam Constitutional: well developed, + ill appearing, + thin and cooperative Eyes: PERRL, conjunctivae normal, anicteric sclerae Respiratory: normal respiratory effort, lungs clear to auscultation normal respiratory effort and able to speak in complete sentences; no respiratory distress, no labored breathing, does not use accessory muscles and no cough Cardiovascular: RRR, no murmur, no edema Gastrointestinal (Abdomen): normal bowel sounds, soft, nontender, no hepatosplenomegaly Inspection/Auscultation: abdomen normal to inspection and normal bowel sounds; abdomen not distended and no abdominal edema Percussion/Palpation: + abdomen tender (Mild diffuse adbdominal msk tenderness. No signs of acute abdomen.) and abdomen soft; no guarding and abdomen not rigid Skin: no rashes, warm and dry normal turgor Neurologic: PERRL, EOMI, accommodation nl, no face palsy, no dysarthria awake; not confused left sided arm/hand weakness Psychiatric: A+Ox3, euthymic affect Orientation: alert, oriented x 3 and cooperative Lymphatic: no cervical or axillary lymphadenopathy Results & Data ([facility]) Vital Signs (Past 12 Hours) Vital Signs Pulse Pulse Resp BP BP Pulse Ox 09/11/21 08:49 87 23 110/61 100 09/11/21 06:30 88 17 102/63 97 09/11/21 06:00 85 17 113/65 97 09/11/21 05:30 82 18 105/63 97 09/11/21 05:00 91 H 19 101/64 97 09/11/21 04:30 90 19 105/61 97 09/11/21 04:00 79 22 115/66 97 09/11/21 03:30 78 10 L 118/64 96 09/11/21 03:00 75 14 117/60 96 09/11/21 02:30 79 12 111/64 96 09/11/21 02:00 81 10 L 111/62 98 09/11/21 01:30 73 10 L 107/60 98 09/11/21 01:00 75 12 108/59 L 98 09/11/21 00:30 82 10 L 113/60 99 09/11/21 00:00 84 12 106/61 99 09/10/21 23:00 82 17 108/64 99 09/10/21 22:30 84 19 110/68 98 09/10/21 22:00 77 4 L 120/64 98 Laboratory Results WBC 17, Hb 11.3, HCT 33, PLT of 313, NA 143, K4.8, CL 110, CO2 24, BUN 53, CR 3.0, glucose 93. Diagnostic Findings CTAP, non contrast 09/10/21: 1. Significantly suboptimal examination without oral and IV contrast. There is also streak and motion artifact. 2. There is no airspace consolidation or pleural effusion. 3. The abnormal density seen on chest x-ray corresponds to uncoiling of the normal caliber thoracic aorta. 4. The liver is enlarged and is infiltrated by numerous low-attenuation mass lesions. These are pathologically indeterminant but concerning for multifocal hepatic metastatic disease. 5. There is evidence of ileocolic intussusception with mild surrounding infiltration and fluid. Given the hepatic findings, an underlying colon mass most be considered. Correlation with a contrast-enhanced CT scan of the abdomen when the patient is clinically able is recommended. Colonoscopy could also be considered for further evaluation of the right colon. 6. The appendix is not identified. Acute appendicitis is considered less likely. 7. There is no evidence of upstream bowel obstruction. 8. Cachexia. 9. A small focus of gas within the bladder lumen is nonspecific and may be related to instrumentation. Correlate with clinical findings and urinalysis. 10. A 4 mm indeterminate pulmonary nodule is seen in the left lower lobe. If clinically warranted this can be followed as per the Fleischner criteria below. Non contrast CT head 09/10/21: There is no hemorrhage, mass effect, or evidence of acute territorial ischemia by CT criteria. CT Chest 09/10/21 1. Significantly suboptimal examination without oral and IV contrast. There is also streak and motion artifact. 2. There is no airspace consolidation or pleural effusion. 3. The abnormal density seen on chest x- ray corresponds to uncoiling of the normal caliber thoracic aorta. 4. The liver is enlarged and is infiltra minna by numerous low-attenuation mass lesions. These are pathologically indeterminant but concerning for multifocal hepatic metastatic disease. 5. There is evidence of ileocolic intuss usception with mild surrounding infiltration and fluid. Given the hepatic findings, an underlying colon mass most be considered. Correlation with a contrast-enhanced CT scan of the abdomen when the patient is clinically able is recommended. Colonoscopy could also be considered for further evaluation of the right colon. 6. The appendix is not identified. Acute appendicitis is considered less likely. 7. There is no evidence of upstream harvey l obstruction. 8. Cachexia. 9. A small focus of gas within the bladd er lumen is nonspecific and may be related to instrumentation. Correlate with clinical findings and urinalysis. 10. A 4 mm indeterminate pulmonary nodul e is seen in the left lower lobe. If clinically warranted this can be followed as per the Fleischner criteria below. 11. Additional findings as above.
[2021-09-11] MEDS: HEPARIN SOD 5,000 UNIT/0.5 ML VIAL SQ SCH ×3 (10:27→20:32)
[2021-09-11] MEDS: D5W AND NSS 1,000 ML IV SCH ×2 (10:27→17:10)
[2021-09-11] MEDS: PIPERACILLIN/TAZOBACTAM 3.375 GM in DEXTROSE 5% 100 ML IV SCH ×2 (10:28→20:33)
--- NOTE | 2021-09-11 11:52 | Surgery Consultation ---
Date of Consultation September 11, 2021 Assessment & Plan (1) Ileocolic intussusception: (2) Lesion of liver: (3) Leukocytosis: (4) Acute on chronic kidney failure: 75 year-old male with increasing weakness, 20 pound weight loss with increasing anorexia, with CT scan showing possible ileocolic intussusception and liver lesions concerning for metastatic disease. Never had a prior colonoscopy. Cachexia on exam. Elevated leukocytosis. lactic acid normalized. Plan: No immediate surgical intervention required at this time. Will need further evaluation with colonoscopy as planned by GI tomorrow 09/12/21. Will await colonoscopy results for further recommendations/plan Continue IV abx diet per GI team will follow along. Dr. torrez has seen patient and present during my examination. Agrees with above. History of Present Illness Reason for Consultation: Intussusception Requesting Physician: Dr. Adriana MD Attending Physician: Vijay Almaguer MD History of Present Illness Anthony is a 75 year-old male with past medical history of CKD, stroke with left hemiparesis, TIA, vertigo, HTN who presented to the emergency room s/p fall and weakness. Anthony states for past 10 days he had increasing weakness. Noticed a 20 pound weight loss in past few months. Appetite has been low as well. Denies of any abdominal pain, nausea, vomiting, blood in stools. Last bowel movement was about 1 week ago. Has never had a colonoscopy. Denies of any family history of colon cancer. Allergies Allergy/AdvReac Type Severity Reaction Status Date / Time No Known Allergies Allergy Unknown Verified 09/10/21 17:59 Home Medications Medication Instructions Recorded Confirmed Type cholecalciferol (vitamin D3) 50 2,000 unit PO DAILY 09/10/21 09/10/21 History mcg (2,000 unit) capsule (Vitamin D3) diltiazem HCl 180 mg 360 mg PO DAILY 09/10/21 09/10/21 History capsule,extended release 24 hr hydralazine 25 mg tablet 25 mg PO TID 09/10/21 09/10/21 History lisinopril 5 mg tablet 5 mg PO DAILY 09/10/21 09/10/21 History metoprolol tartrate 25 mg tablet 12.5 mg PO BID 09/10/21 09/11/21 History simvastatin 20 mg tablet 20 mg PO DAILY 09/10/21 09/10/21 History calcitriol 0.5 mcg capsule 0.5 mcg PO DAILY 09/11/21 09/11/21 History Patient History Medical History CKD (chronic kidney disease) Hyperlipidemia Hypertension Stroke Family History Other Heart disease Social History Smoking Status: Never smoker Feels Safe at Home: Yes Assistive Devices: Brace/Splint/Immobilizer and Cane Physical Exam Constitutional: + thin, + cachectic, + frail appearing, cooperative and comfortable; no acute distress and not in distress Respiratory: normal respiratory effort, lungs clear to auscultation Cardiovascular: RRR, no murmur, no edema Gastrointestinal (Abdomen): Inspection/Auscultation: abdomen normal to inspection; abdomen not distended Percussion/Palpation: abdomen soft; abdomen nontender, no guarding and abdomen not rigid Skin: no rashes, warm and dry Psychiatric: Orientation: alert and oriented x 3 Results & Data ([facility]) Vital Signs (Past 12 Hours) Vital Signs Pulse Pulse Resp BP BP Pulse Ox 09/11/21 08:49 87 23 110/61 100 09/11/21 06:30 88 17 102/63 97 09/11/21 06:00 85 17 113/65 97 09/11/21 05:30 82 18 105/63 97 09/11/21 05:00 91 H 19 101/64 97 09/11/21 04:30 90 19 105/61 97 09/11/21 04:00 79 22 115/66 97 09/11/21 03:30 78 10 L 118/64 96 09/11/21 03:00 75 14 117/60 96 09/11/21 02:30 79 12 111/64 96 09/11/21 02:00 81 10 L 111/62 98 09/11/21 01:30 73 10 L 107/60 98 09/11/21 01:00 75 12 108/59 L 98 09/11/21 00:30 82 10 L 113/60 99 09/11/21 00:00 84 12 106/61 99 Laboratory Results 09/11/21 09/11/21 09/11/21 Range/Units 09:57 06:47 06:47 WBC 17.18 H (4.8-10.8) K/uL RBC 3.53 L (4.7-6.1) M/uL Hgb 11.3 L (14.0-18.0) g/dL Hct 33.4 L (42-52) % MCV 94.6 (80-100) fL MCH 32.0 (25-34) pg MCHC 33.8 (32-36) g/dL RDW Std Deviation 50.8 H (36.4-46.3) fL RDW Coeff of Cliff 14.8 H (11.5-14.5) % Plt Count 313 (130-400) K/uL MPV 9.3 (7.4-10.4) fL Immature Gran % (Auto) 0.3 % Neut % (Auto) 88.9 % Lymph % (Auto) 5.3 % Woodward % (Auto) 5.4 % Eos % (Auto) 0.0 % Baso % (Auto) 0.1 % Neut # (Auto) 15.28 H (1.4-6.5) K/uL Lymph # (Auto) 0.91 L (1.2-3.4) K/uL Woodward # (Auto) 0.92 H (0.11-0.59) K/uL Eos # (Auto) 0.00 (0-0.5) K/uL Baso # (Auto) 0.01 (0-0.2) K/uL Immature Gran # (Auto) 0.06 H (0.00-0.02) K/uL Sodium 143 (136-145) mmol/L Potassium 4.8 (3.5-5.1) mmol/L Chloride 110 H (98-107) mmol/L Carbon Dioxide 24 (21-32) mmol/L Anion Gap 9.0 (3-11) BUN 53 H (7-18) mg/dl Creatinine 3.00 H (0.6-1.4) mg/dl Est Cr Clr Drug Dosing 17.0 ml/min Est GFR ( Amer) 22.8 ml/min Est GFR (Non-Af Amer) 19.7 ml/min BUN/Creatinine Ratio 17.8 (10-20) Glucose 93 (70-99) mg/dl Lactate (0.4-2.0) mmol/L Calcium 9.6 (8.5-10.1) mg/dl Phosphorus (2.5-4.9) mg/dl Magnesium 2.3 (1.8-2.4) mg/dl Total Bilirubin (0.2-1) mg/dl AST (15-37) U/L ALT (12-78) U/L Alkaline Phosphatase (45-117) U/L Troponin I 0.055 H* (0-0.045) ng/ml Total Protein (6.4-8.2) gm/dl Albumin (3.4-5.0) gm/dl Globulin (2.5-4.0) gm/dl Albumin/Globulin Ratio (0.9-2) Lipase (73-393) U/L Procalcitonin (0-0.5) ng/ml Urine Color Urine Appearance (Clear) Urine pH (4.5-7.5) Ur Specific [place] (1.000-1.030) Urine Protein (Negative) Urine Glucose (UA) (Negative) Urine Ketones (Negative) Urine Blood (Negative) Urine Nitrite (Negative) Urine Bilirubin (Negative) Urine Urobilinogen (Negative) Ur Leukocyte Esterase (Negative) Urine WBC (Auto) (0-5) /hpf Urine RBC (Auto) (0-4) /hpf U Hyaline Cast (Auto) (0-5) /lpf U Epithel Cells (Auto) (0-5) /lpf Urine Bacteria (Auto) (Negative) Ur Renal Epithelial Cell Urine Yeast COVID-19 Eval Order SARS-CoV-2 (PCR) (Negative) 09/10/21 09/10/21 09/10/21 Range/Units 22:07 20:49 20:07 WBC (4.8-10.8) K/uL RBC (4.7-6.1) M/uL Hgb (14.0-18.0) g/dL Hct (42-52) % MCV (80-100) fL MCH (25-34) pg MCHC (32-36) g/dL RDW Std Deviation (36.4-46.3) fL RDW Coeff of Cliff (11.5-14.5) % Plt Count (130-400) K/uL MPV (7.4-10.4) fL Immature Gran % (Auto) % Neut % (Auto) % Lymph % (Auto) % Woodward % (Auto) % Eos % (Auto) % Baso % (Auto) % Neut # (Auto) (1.4-6.5) K/uL Lymph # (Auto) (1.2-3.4) K/uL Woodward # (Auto) (0.11-0.59) K/uL Eos # (Auto) (0-0.5) K/uL Baso # (Auto) (0-0.2) K/uL Immature Gran # (Auto) (0.00-0.02) K/uL Sodium (136-145) mmol/L Potassium (3.5-5.1) mmol/L Chloride (98-107) mmol/L Carbon Dioxide (21-32) mmol/L Anion Gap (3-11) BUN (7-18) mg/dl Creatinine (0.6-1.4) mg/dl Est Cr Clr Drug Dosing ml/min Est GFR ( Amer) ml/min Est GFR (Non-Af Amer) ml/min BUN/Creatinine Ratio (10-20) Glucose (70-99) mg/dl Lactate 1.6 (0.4-2.0) mmol/L Calcium (8.5-10.1) mg/dl Phosphorus (2.5-4.9) mg/dl Magnesium (1.8-2.4) mg/dl Total Bilirubin (0.2-1) mg/dl AST (15-37) U/L ALT (12-78) U/L Alkaline Phosphatase (45-117) U/L Troponin I (0-0.045) ng/ml Total Protein (6.4-8.2) gm/dl Albumin (3.4-5.0) gm/dl Globulin (2.5-4.0) gm/dl Albumin/Globulin Ratio (0.9-2) Lipase (73-393) U/L Procalcitonin 40.28 H (0-0.5) ng/ml Urine Color Dark Yellow Urine Appearance Cloudy A (Clear) Urine pH 5.0 (4.5-7.5) Ur Specific [place] 1.020 (1.000-1.030) Urine Protein 2+ H (Negative) Urine Glucose (UA) Negative (Negative) Urine Ketones Trace H (Negative) Urine Blood Trace H (Negative) Urine Nitrite Negative (Negative) Urine Bilirubin 1+ H (Negative) Urine Urobilinogen Positive H (Negative) Ur Leukocyte Esterase Negative (Negative) Urine WBC (Auto) 1-5 (0-5) /hpf Urine RBC (Auto) 0-4 (0-4) /hpf U Hyaline Cast (Auto) 1-5 (0-5) /lpf U Epithel Cells (Auto) >30 H (0-5) /lpf Urine Bacteria (Auto) Negative (Negative) Ur Renal Epithelial Cell Not Reportable Urine Yeast Not Reportable COVID-19 Eval Order SARS-CoV-2 (PCR) (Negative) 09/10/21 09/10/21 09/10/21 Range/Units 20:07 18:46 18:46 WBC 21.61 H (4.8-10.8) K/uL RBC 3.34 L (4.7-6.1) M/uL Hgb 10.8 L (14.0-18.0) g/dL Hct 31.7 L (42-52) % MCV 94.9 (80-100) fL MCH 32.3 (25-34) pg MCHC 34.1 (32-36) g/dL RDW Std Deviation 51.0 H (36.4-46.3) fL RDW Coeff of Cliff 14.7 H (11.5-14.5) % Plt Count 352 (130-400) K/uL MPV 9.5 (7.4-10.4) fL Immature Gran % (Auto) 0.5 % Neut % (Auto) 90.5 % Lymph % (Auto) 3.9 % Woodward % (Auto) 5.1 % Eos % (Auto) 0.0 % Baso % (Auto) 0.0 % Neut # (Auto) 19.55 H (1.4-6.5) K/uL Lymph # (Auto) 0.84 L (1.2-3.4) K/uL Woodward # (Auto) 1.11 H (0.11-0.59) K/uL Eos # (Auto) 0.01 (0-0.5) K/uL Baso # (Auto) 0.00 (0-0.2) K/uL Immature Gran # (Auto) 0.10 H (0.00-0.02) K/uL Sodium 144 (136-145) mmol/L Potassium 4.9 (3.5-5.1) mmol/L Chloride 110 H (98-107) mmol/L Carbon Dioxide 23 (21-32) mmol/L Anion Gap 11.0 (3-11) BUN 55 H (7-18) mg/dl Creatinine 3.04 H (0.6-1.4) mg/dl Est Cr Clr Drug Dosing 16.7 ml/min Est GFR ( Amer) 22.5 ml/min Est GFR (Non-Af Amer) 19.4 ml/min BUN/Creatinine Ratio 18.1 (10-20) Glucose 110 H (70-99) mg/dl Lactate 2.5 H* (0.4-2.0) mmol/L Calcium 8.7 (8.5-10.1) mg/dl Phosphorus 4.6 (2.5-4.9) mg/dl Magnesium 2.2 (1.8-2.4) mg/dl Total Bilirubin 1.0 (0.2-1) mg/dl AST 620 H (15-37) U/L ALT 180 H (12-78) U/L Alkaline Phosphatase 321 H (45-117) U/L Troponin I 0.061 H* (0-0.045) ng/ml Total Protein 6.6 (6.4-8.2) gm/dl Albumin 2.4 L (3.4-5.0) gm/dl Globulin 4.2 H (2.5-4.0) gm/dl Albumin/Globulin Ratio 0.6 L (0.9-2) Lipase 105 (73-393) U/L Procalcitonin (0-0.5) ng/ml Urine Color Urine Appearance (Clear) Urine pH (4.5-7.5) Ur Specific [place] (1.000-1.030) Urine Protein (Negative) Urine Glucose (UA) (Negative) Urine Ketones (Negative) Urine Blood (Negative) Urine Nitrite (Negative) Urine Bilirubin (Negative) Urine Urobilinogen (Negative) Ur Leukocyte Esterase (Negative) Urine WBC (Auto) (0-5) /hpf Urine RBC (Auto) (0-4) /hpf U Hyaline Cast (Auto) (0-5) /lpf U Epithel Cells (Auto) (0-5) /lpf Urine Bacteria (Auto) (Negative) Ur Renal Epithelial Cell Urine Yeast COVID-19 Eval Order SARS-CoV-2 (PCR) (Negative) 09/10/21 09/10/21 Range/Units 18:08 18:08 WBC (4.8-10.8) K/uL RBC (4.7-6.1) M/uL Hgb (14.0-18.0) g/dL Hct (42-52) % MCV (80-100) fL MCH (25-34) pg MCHC (32-36) g/dL RDW Std Deviation (36.4-46.3) fL RDW Coeff of Cliff (11.5-14.5) % Plt Count (130-400) K/uL MPV (7.4-10.4) fL Immature Gran % (Auto) % Neut % (Auto) % Lymph % (Auto) % [place]ward % (Auto) % Eos % (Auto) % Baso % (Auto) % Neut # (Auto) (1.4-6.5) K/uL Lymph # (Auto) (1.2-3.4) K/uL [place] # (Auto) (0.11-0.59) K/uL Eos # (Auto) (0-0.5) K/uL Baso # (Auto) (0-0.2) K/uL Immature Gran # (Auto) (0.00-0.02) K/uL Sodium (136-145) mmol/L Potassium (3.5-5.1) mmol/L Chloride (98-107) mmol/L Carbon Dioxide (21-32) mmol/L Anion Gap (3-11) BUN (7-18) mg/dl Creatinine (0.6-1.4) mg/dl Est Cr Clr Drug Dosing ml/min Est GFR ( Amer) ml/min Est GFR (Non-Af Amer) ml/min BUN/Creatinine Ratio (10-20) Glucose (70-99) mg/dl Lactate (0.4-2.0) mmol/L Calcium (8.5-10.1) mg/dl Phosphorus (2.5-4.9) mg/dl Magnesium (1.8-2.4) mg/dl Total Bilirubin (0.2-1) mg/dl AST (15-37) U/L ALT (12-78) U/L Alkaline Phosphatase (45-117) U/L Troponin I (0-0.045) ng/ml Total Protein (6.4-8.2) gm/dl Albumin (3.4-5.0) gm/dl Globulin (2.5-4.0) gm/dl Albumin/Globulin Ratio (0.9-2) Lipase (73-393) U/L Procalcitonin (0-0.5) ng/ml Urine Color Urine Appearance (Clear) Urine pH (4.5-7.5) Ur Specific [place] (1.000-1.030) Urine Protein (Negative) Urine Glucose (UA) (Negative) Urine Ketones (Negative) Urine Blood (Negative) Urine Nitrite (Negative) Urine Bilirubin (Negative) Urine Urobilinogen (Negative) Ur Leukocyte Esterase (Negative) Urine WBC (Auto) (0-5) /hpf Urine RBC (Auto) (0-4) /hpf U Hyaline Cast (Auto) (0-5) /lpf U Epithel Cells (Auto) (0-5) /lpf Urine Bacteria (Auto) (Negative) Ur Renal Epithelial Cell Urine Yeast COVID-19 Eval Order Covid19 at [facility] SARS-CoV-2 (PCR) NEGATIVE (Negative) Diagnostic Findings [place], [place] [phone] CT Scan Report Patient:ANTHONY CHAWLA Admit Date:09/10/21 MR#:[id number] Address1:[address] [place] [address] [address] Acct ID:[id number] Address2: Date:1945 [facility] Zip:[place] [address] Age:75 Location:ED Sex:M Room/Bed: Att Phy: Diagnosis:WEAK, DEHYDRATED Essence Phy:Rajiv Monsalve DO Service Date:09/10/21 Fam Phy: Interpreting Phy:Agustín Jeffries MDAdmit Phy: Ordering Phy:Monico Daniel M.D. cc: ~ CT SCAN OF THE CHEST, ABDOMEN, AND PELVIS WITHOUT IV CONTRAST CLINICAL HISTORY: Generalized weakness. Leukocytosis. COMPARISON STUDY: Chest x-ray dated 09/10/2021. TECHNIQUE: Unenhanced CT scan of the chest, abdomen, and pelvis was performed from the thoracic inlet to the proximal femora. Images are reviewed in the axial , sagittal, and coronal planes. IV contrast was not administered due to poor renal function. Note that the examination was performed in significantly suboptimal fashion without oral and IV contrast. There is motion artifact, as well as streak artifact from the arms which could not be elevated above the chest or abdomen. A dose lowering technique was utilized adhering to the principles of ALARA. CT DOSE: 483.62 mGy.cm FINDINGS: CHEST: Thyroid: The thyroid gland is enlarged and heterogeneous. Low-attenuation nodules measure up to 2.7 cm. Thoracic aorta: The thoracic aorta is normal in caliber and demonstrates standard 3-vessel arch anatomy. There is uncoiling of the thoracic aorta. Heart: The heart is normal in size and without pericardial effusion. There are scattered coronary artery calcifications. Lungs and pleural spaces: There is no airspace consolidation or pleural effusion. Scarring/atelectasis is noted at the lung bases. The trachea and central airways are clear. A 4 mm left lower lobe pulmonary nodule is seen on image #249. Mediastinum: There is no mediastinal lymphadenopathy. Miranda: Not well assessed without IV contrast. Axillae: There is no axillary lymphadenopathy. Bony thorax: The skeletal structures are osteopenic. Mild degenerative change is noted in the thoracic spine and shoulders. No lytic or blastic lesions are identified. ABDOMEN AND PELVIS: Liver: The unenhanced liver is enlarged, measuring 18.7 cm in length. The liver is is markedly heterogeneous in attenuation, and the liver appears to be infiltrated by numerous mass lesions measuring up to 3 cm. There is no intrahepatic biliary ductal dilatation. Gallbladder: Unremarkable. Spleen: Normal in size and attenuation. Pancreas: The unenhanced pancreas is grossly unremarkable. Adrenal glands: Unremarkable. Kidneys: The unenhanced kidneys demonstrate mild cortical atrophy and are without hydronephrosis. No renal calculi are identified. Abdominal vasculature: The abdominal aorta is normal in course and caliber noting mild atherosclerotic calcification. Bowel: Findings suggesting ileocolic intussusception with surrounding infiltration and trace fluid There is no evidence of upstream bowel obstruction. Underlying mass lesion is not excluded. Mild fatty infiltration is seen in the right lower quadrant. The appendix is not visualized. Peritoneum: There is no intraperitoneal free air or abdominal ascites. Lymphadenopathy: None. Pelvic viscera: The prostate gland is enlarged and heterogeneous noting median lobe hypertrophy. The bladder wall appears thickened and trabeculated indicating chronic outlet obstruction. There is a punctate focus of gas within the bladder lumen and mild pericystic infiltration. Skeletal structures: The skeletal structures are osteopenic. No lytic or blastic lesions are seen. Soft tissues: The patient is cachectic. IMPRESSION: 1. Significantly suboptimal examination without oral and IV contrast. There is also streak and motion artifact. 2. There is no airspace consolidation or pleural effusion. 3. The abnormal density seen on chest x-ray corresponds to uncoiling of the normal caliber thoracic aorta. 4. The liver is enlarged and is infiltrated by numerous low-attenuation mass lesions. These are pathologically indeterminant but concerning for multifocal hepatic metastatic disease. 5. There is evidence of ileocolic intussusception with mild surrounding infiltration and fluid. Given the hepatic findings, an underlying colon mass most be considered. Correlation with a contrast-enhanced CT scan of the abdomen when the patient is clinically able is recommended. Colonoscopy could also be considered for further evaluation of the right colon. 6. The appendix is not identified. Acute appendicitis is considered less likely. 7. There is no evidence of upstream bowel obstruction. 8. Cachexia. 9. A small focus of gas within the bladder lumen is nonspecific and may be related to instrumentation. Correlate with clinical findings and urinalysis. 10. A 4 mm indeterminate pulmonary nodule is seen in the left lower lobe. If clinically warranted this can be followed as per the Fleischner criteria below. 11. Additional findings as above. (1) Leukocytosis Leukocytosis type: unspecified Qualified Code(s): D72.829 - Elevated white blood cell count, unspecified (2) Acute on chronic kidney failure Acute renal failure type: unspecified Chronic kidney disease stage: unspecified stage Qualified Code(s): N17.9 - Acute kidney failure, unspecified; N18.9 - Chronic kidney disease, unspecified
[2021-09-11] MEDS ORDERED: SODIUM CHLORIDE 0.9% 1000ML 250 ML IV ONE (16:14)
--- NOTE | 2021-09-11 17:44 | Communication Note ---
Date of Service: September 11, 2021 Chart review Patient seen at the bedside Awake, alert, oriented x3 Very pleasant States he feels improved since admission No chest pain, shortness of breath, palpitations, dizziness No abdominal pain No nausea or vomiting No fevers or chills No headache, neurological symptoms Vital signs noted Not in distress, comfortable Heart normal rate regular rhythm Lungs clear breath sounds bilaterally abdomen nondistended, soft nontender Extremities no edema Neuro chronic left sided weakness with flexed posturing Labs reviewed Weakness, likely secondary to acute renal failure from poor oral intake Underlying possible colonic mass and liver mets Rule out underlying infection IV fluids, monitor creatinine, well reactivator operator consulted GI consulted, for colonoscopy tomorrow Follow-up cultures, continue daptomycin plus Zosyn Vijay Almaguer MD
[2021-09-11] MEDS ORDERED: INFLUENZA VACCINE HIGH DOSE PF 65+ 0.7 ML SYR IM ONE (21:00)
[2021-09-12] MEDS: D5W AND NSS 1,000 ML IV SCH ×3 (03:22→21:10)
[2021-09-12] MEDS: HEPARIN SOD 5,000 UNIT/0.5 ML VIAL SQ SCH ×3 (03:25→21:04)
[2021-09-12 07:36] LABS: Albumin Level 1.7 gm/dl (3.4-5.0); Bilirubin Direct 0.6 mg/dl (0-0.2); Bilirubin,Total 1.1 mg/dl (0.2-1); Total Protein 5.9 gm/dl (6.4-8.2)
[2021-09-12] MEDS: METOPROLOL TARTRATE 25 MG TAB PO SCH ×2 (08:16→21:07)
[2021-09-12] MEDS: hydrALAZINE HCL 25 MG TAB PO SCH ×4 (08:16→21:07)
[2021-09-12] MEDS: CHOLECALCIFEROL 1,000 UNITS 25 MCG TAB PO SCH (08:18)
[2021-09-12] MEDS: CALCITRIOL 0.25 MCG CAPSULE PO SCH (08:18)
[2021-09-12] MEDS: dilTIAZem HCL 180 MG CAPCR PO SCH (08:18)
[2021-09-12] MEDS: PIPERACILLIN/TAZOBACTAM 3.375 GM in DEXTROSE 5% 100 ML IV SCH ×2 (08:24→21:06)
--- NOTE | 2021-09-12 09:25 | Communication Note ---
Date of Service: September 12, 2021 Pt did not tolerate bowel prep, only drank about 1/4 of bowel prep. Having formed, brown stools. Denies any new GI s/s. Will cancel colonoscopy and plan for EGD w/ EUS for liver lesion biopsy. Nursing updated. All questions answered.
[2021-09-12] MEDS ORDERED: LIDOCAINE 2% 2 ML VIAL/AMP(20MG/ML) INFIL ONE (10:02)
[2021-09-12] MEDS ORDERED: PROPOFOL IV EMULSION 10 MG/ML 20 ML VIAL IV ONE (10:02)
[2021-09-12] MEDS ORDERED: SUCCINYLCHOLINE 100MG/5ML SYR IV ONE (10:02)
[2021-09-12] MEDS ORDERED: ONDANSETRON INJ 2 MG/ML 2 ML VIAL ONE (10:05)
--- NOTE | 2021-09-12 10:07 | Anesthesiology Consultation ---
Date of Service September 12, 2021 Assessment & Plan Chart Review Chart Review: Acceptable Risk for Surgery (necessary surgery) and Patient NOT seen in Pre Admission Testing Consults Requested none Additional Notes CT SCAN OF THE BRAIN WITHOUT IV CONTRAST CLINICAL HISTORY: Generalized weakness. COMPARISON STUDY: CT of the brain dated 08/18/2014. MRI of the brain dated 08/19/2014. TECHNIQUE: Unenhanced axial CT scan of the brain is performed from the vertex to the skull base. A dose lowering technique was utilized adhering to the principles of ALARA. CT DOSE: 994.86 mGycm FINDINGS: Brain parenchyma: There are age-related involutional changes noting minimal subcortical and periventricular microangiopathic change. There is no hemorrhage, mass effect, or evidence of acute territorial ischemia by CT criteria. Low- attenuation within the right periventricular white matter is unchanged and consistent with a remote insult. Chronic infarcts are again seen in the right thalamus and the right cerebellar hemisphere. Candelario-white matter differentiation is preserved. No extra-axial fluid collection is seen. Ventricles, sulci, cisterns: Prominent secondary to involutional change. Intracranial vasculature: There is mild atherosclerotic calcification of the cavernous carotid arteries. Calvarium: Unremarkable. Sinuses and mastoids: The visualized paranasal sinuses are clear. The mastoid air cells are well pneumatized. Orbits: The bony orbits are grossly intact. IMPRESSION: There is no hemorrhage, mass effect, or evidence of acute territorial ischemia by CT criteria. ACT 112: Negative or not required by law. Electronically signed by: Agustín Jeffries M.D. 09/10/2021 6:37 PM Dictated:09/10/21 1834 ADDENDUM ADDENDUM: In addition to the above findings, there is a 1.9 x 1.5 cm enlarged mesenteric lymph node the right lower quadrant seen on axial image #264. This would also support the presence of a suspected right-sided colonic mass serving as the lead point for intussusception. Electronically signed by: Agustín Jeffries M.D. 09/11/2021 2:[address] SCAN OF THE CHEST, ABDOMEN, AND PELVIS WITHOUT IV CONTRAST CLINICAL HISTORY: Generalized weakness. Leukocytosis. COMPARISON STUDY: Chest x-ray dated 09/10/2021. TECHNIQUE: Unenhanced CT scan of the chest, abdomen, and pelvis was performed from the thoracic inlet to the proximal femora. Images are reviewed in the axial, sagittal, and coronal planes. IV contrast was not administered due to poor renal function. Note that the examination was performed in significantly suboptimal fashion without oral and IV contrast. There is motion artifact, as well as streak artifact from the arms which could not be elevated above the chest or abdomen. A dose lowering technique was utilized adhering to the principles of ALARA. CT DOSE: 483.62 mGy.cm FINDINGS: CHEST: Thyroid: The thyroid gland is enlarged and heterogeneous. Low-attenuation no dules measure up to 2.7 cm. Thoracic aorta: The thoracic aorta is normal in caliber and demonstrates standard 3-vessel arch anatomy. There is uncoiling of the thoracic aorta. Heart: The heart is normal in size and without pericardial effusion. There are scattered coronary artery calcifications. Lungs and pleural spaces: There is no airspace consolidation or pleural effusion. Scarring/atelectasis is noted at the lung bases. The trachea and central airways are clear. A 4 mm left lower lobe pulmonary nodule is seen on image #249. Mediastinum: There is no mediastinal lymphadenopathy. Miranda: Not well assessed without IV contrast. Axillae: There is no axillary lymphadenopathy. Bony thorax: The skeletal structures are osteopenic. Mild degenerative change is noted in the thoracic spine and shoulders. No lytic or blastic lesions are identified. ABDOMEN AND PELVIS: Liver: The unenhanced liver is enlarged, measuring 18.7 cm in length. The liver is is markedly heterogeneous in attenuation, and the liver appears to be infiltrated by numerous mass lesions measuring up to 3 cm. There is no intrahepatic biliary ductal dilatation. Gallbladder: Unremarkable. Spleen: Normal in size and attenuation. Pancreas: The unenhanced pancreas is grossly unremarkable. Adrenal glands: Unremarkable. Kidneys: The unenhanced kidneys demonstrate mild cortical atrophy and are without hydronephrosis. No renal calculi are identified. Abdominal vasculature: The abdominal aorta is normal in course and caliber noting mild atherosclerotic calcification. Bowel: Findings suggesting ileocolic intussusception with surrounding infiltration and trace fluid There is no evidence of upstream bowel obstruction. Underlying mass lesion is not excluded. Mild fatty infiltration is seen in the right lower quadrant. The appendix is not visualized. Peritoneum: There is no intraperitoneal free air or abdominal ascites. Lymphadenopathy: None. Pelvic viscera: The prostate gland is enlarged and heterogeneous noting median lobe hypertrophy. The bladder wall appears thickened and trabeculated indicating chronic outlet obstruction. There is a punctate focus of gas within the bladder lumen and mild pericystic infiltration. Skeletal structures: The skeletal structures are osteopenic. No lytic or blastic lesions are seen. Soft tissues: The patient is cachectic. IMPRESSION: 1. Significantly suboptimal examination without oral and IV contrast. There is also streak and motion artifact. 2. There is no airspace consolidation or pleural effusion. 3. The abnormal density seen on chest x-ray corresponds to uncoiling of the normal caliber thoracic aorta. 4. The liver is enlarged and is infiltrated by numerous low-attenuation mass lesions. These are pathologically indeterminant but concerning for multifocal hepatic metastatic disease. 5. There is evidence of ileocolic intussusception with mild surrounding infiltration and fluid. Given the hepatic findings, an underlying colon mass most be considered. Correlation with a contrast-enhanced CT scan of the abdomen when the patient is clinically able is recommended. Colonoscopy could also be considered for further evaluation of the right colon. 6. The appendix is not identified. Acute appendicitis is considered less likely. 7. There is no evidence of upstream bowel obstruction. 8. Cachexia. 9. A small focus of gas within the bladder lumen is nonspecific and may be related to instrumentation. Correlate with clinical findings and urinalysis. 10. A 4 mm indeterminate pulmonary nodule is seen in the left lower lobe. If clinically warranted this can be followed as per the Fleischner criteria below. 11. Additional findings as above. History Surgery Operation Date: 09/12/21 09:25 Proposed Procedures p Endoscopic Ultrasonography Upper - Jared Wasserman MD Operation Date: 09/12/21 17:15 Proposed Procedures p Colonoscopy Dr Wasserman - Jared Wasserman MD Height/Weight Height: 6 ft Weight: 54.4 kg Allergies Allergy/AdvReac Type Severity Reaction Status Date / Time No Known Allergies Allergy Unknown Verified 09/10/21 17:59 Medications Home Medications Medication Instructions Recorded Confirmed Last Taken cholecalciferol (vitamin D3) 50 2,000 unit PO DAILY 09/10/21 09/10/21 09/09/21 mcg (2,000 unit) capsule (Vitamin D3) diltiazem HCl 180 mg 360 mg PO DAILY 09/10/21 09/10/21 09/09/21 capsule,extended release 24 hr hydralazine 25 mg tablet 25 mg PO TID 09/10/21 09/10/21 09/09/21 lisinopril 5 mg tablet 5 mg PO DAILY 09/10/21 09/10/21 09/09/21 metoprolol tartrate 25 mg tablet 12.5 mg PO BID 09/10/21 09/11/21 Unknown simvastatin 20 mg tablet 20 mg PO DAILY 09/10/21 09/10/21 09/09/21 calcitriol 0.5 mcg capsule 0.5 mcg PO DAILY 09/11/21 09/11/21 Unknown Active Medications Generic Name Dose Route Start Last Admin Trade Name Freq PRN Reason Stop Dose Admin Calcitriol 0.5 mcg 09/11/21 09:00 09/12/21 08:18 Calcitriol 0.25 Mcg Capsule PO 10/11/21 08:59 0.5 mcg DAILY AILYN Administration Diltiazem HCl 360 mg 09/11/21 09:00 09/12/21 08:18 Diltiazem Hcl 180 Mg Capcr PO 10/11/21 08:59 360 mg DAILY AILYN Administration Heparin Sodium (Porcine) 5,000 units 09/11/21 06:00 09/12/21 03:25 Heparin Sod 5,000 Unit/0.5 Ml Vial SQ 10/11/21 05:59 Not Given Q8 AILYN Hydralazine HCl 25 mg 09/11/21 09:00 09/12/21 08:17 Hydralazine Hcl 25 Mg Tab PO 10/11/21 08:59 25 mg TID AILYN Administration Dextrose/Sodium Chloride 1,000 mls @ 100 mls/hr 09/11/21 05:30 09/12/21 09:29 D5w And Nss IV 10/11/21 05:29 0 mls/hr .Q10H AILYN Infusion Piperacillin Sod/Tazobactam 115 mls @ 28.75 mls/hr 09/11/21 08:00 09/12/21 08:24 Sod 3.375 gm/ Dextrose IV 09/13/21 07:59 28.8 mls/hr Q12H AILYN Administration Protocol Metoprolol Tartrate 12.5 mg 09/11/21 09:00 09/12/21 08:16 Metoprolol Tartrate 25 Mg Tab PO 10/11/21 08:59 12.5 mg BID AILYN Administration Vitamin D 2,000 units 09/11/21 09:00 09/12/21 08:18 Cholecalciferol 1,000 Units 25 Mcg Tab PO 10/11/21 08:59 2,000 units DAILY AILYN Administration NPO Date Last Intake of Fluids: 09/11/21 Time Last Intake of Fluids: 23:55 Date Last Intake of Solids: 09/11/21 Time Last Intake of Solids: 23:55 Past Medical History Medical History Anemia CKD (chronic kidney disease) Hyperlipidemia Hypertension Stroke Exercise / Class Metabolic Activity III < 4 Walking/Shop/Light housework (uses cane, has left sided contractions) Past Family History Family History Other Heart disease Past Anesthesia History No Hx of Anesthesia Complications and No Family Hx of Anesthesia Complications History of PONV No Hx of PONV and No Hx of Motion Sickness Social History Smoking Status: Never smoker Hx Alcohol Use: No Hx Substance Use: No Physical Exam Vital Signs Last Vital Signs Temp 36.8 C 09/12/21 09:41 Pulse 68 09/12/21 09:41 Resp 18 09/12/21 09:41 BP 98/55 L 09/12/21 09:41 Pulse Ox 100 09/12/21 09:41 Testing Laboratory Results 09/11/21 06:47 09/11/21 06:47 Urine Color Dark Yellow 09/10/21 20:49 Urine Appearance Cloudy (Clear) A 09/10/21 20:49 Urine pH 5.0 (4.5-7.5) 09/10/21 20:49 Ur Specific [place] 1.020 (1.000-1.030) 09/10/21 20:49 Urine Protein 2+ (Negative) H 09/10/21 20:49 Urine Glucose (UA) Negative (Negative) 09/10/21 20:49 Urine Ketones Trace (Negative) H 09/10/21 20:49 Urine Nitrite Negative (Negative) 09/10/21 20:49 Ur Leukocyte Esterase Negative (Negative) 09/10/21 20:49 Urine WBC (Auto) 1-5 /hpf (0-5) 09/10/21 20:49 Urine RBC (Auto) 0-4 /hpf (0-4) 09/10/21 20:49 U Hyaline Cast (Auto) 1-5 /lpf (0-5) 09/10/21 20:49 U Epithel Cells (Auto) >30 /lpf (0-5) H 09/10/21 20:49 Urine Bacteria (Auto) Negative (Negative) 09/10/21 20:49 09/10/21 20:20 Aerobic Blood Culture - Preliminary Blood No growth in Aerobic bottle after 24 hours. Anaerobic Blood Culture - Final 09/10/21 20:07 Aerobic Blood Culture - Preliminary Blood No growth in Aerobic bottle after 24 hours. Anaerobic Blood Culture - Preliminary No growth in Anaerobic bottle after 24 hours. 09/10/21 20:49 Urine Culture - Preliminary Urine,Straight Cath Pin-point growth present, reincubating. Electrocardiogram Date: 09/10/21 Test Reason : Blood Pressure : / mmHG Vent. Rate : 110 BPM Atrial Rate : 110 BPM P-R Int : 140 ms QRS Dur : 064 ms QT Int : 306 ms P-R-T Axes : 088 083 086 degrees QTc Int : 414 ms Sinus tachycardia Biatrial enlargement consider hyperacute T-waves Abnormal ECG When compared with ECG of 19-AUG-2014 10:17, [place] interval has decreased Vent. rate has increased BY 63 BPM Confirmed by Chito Strong ([id number]) on 09/11/2021 9:09:05 AM Referred By: REFERRED SELF Confirmed By:Peter Strong Signed By: Chest X-Ray Date: 10/10/21 SINGLE VIEW CHEST CLINICAL HISTORY: Atypical chest pain. FINDINGS: 2 AP, portable, upright chest radiographs are compared to study dated 08/18/2014. The heart is normal in size. There is abnormal density/configuration of the aortic arch/left hilum. The lungs and pleural spaces are clear. No pneumothorax is seen. The skeletal structures are osteopenic. The bony thorax is grossly intact. IMPRESSION: 1. The lungs are clear. 2. There is abnormal density/configuration of the aortic arch. This is of indeterminant significance and correlation with a chest CT is recommended for further assessment. ACT 112: Negative or not required by law.
[2021-09-12] MEDS ORDERED: fentaNYL citrate 100 MCG/2 ML VIAL IV PRN (10:13)
[2021-09-12] MEDS ORDERED: ONDANSETRON INJ 2 MG/ML 2 ML VIAL IV PRN (10:13)
[2021-09-12] MEDS ORDERED: PHENYLEPHRINE 100MCG/ML 5ML SYR IV PRN (10:13)
[2021-09-12] MEDS ORDERED: ePHEDrine sulfate 50 MG/ML AMP IV PRN (10:13)
[2021-09-12] MEDS ORDERED: ATROPINE SULFATE 0.1 MG/ML 10ML SYR IV PRN (10:13)
[2021-09-12] MEDS ORDERED: LABETALOL HCL IV 5 MG/ML 20ML IV PRN (10:13)
--- NOTE | 2021-09-12 10:29 | History & Physical Bridge Note ---
Date of Service September 12, 2021 History & Physical Bridge Note I have examined the patient, reviewed the History & Physical and in the interval since the performance of the History & Physical I have noted the following changes of clinical significance: no changes noted Patient could not prep for colonoscopy, doubt he will be able to prep at all. Plan for EUS with FNA of the liver lesion. Patient was explained in detail regarding risks, benefits, limitations and alternatives of the above endoscopic procedure. Risks of intravenous sedation used for procedure were also explained. Risks include, but not limited to perforation, bleeding, infection, respiratory distress, cardiac arrest and . Patient is also aware about the possibility of missed lesion. Patient's questions were answered. The patient verbalized understanding the information and agreed to undergo the procedure.
--- NOTE | 2021-09-12 11:28 | Operative Report ---
Post Operative Report Pre & Post Diagnosis Operation Date: 09/12/21 09:25 Pre-Op Diagnosis: Liver Mass Post-Op Diagnosis: Liver Metastatic Cancer Operation Date: 09/12/21 17:15 <No data on this case meets the specified criteria> I identified the patient and participated in the time-out.: Yes Procedure Operation Date: 09/12/21 09:25 Actual Procedures p Endoscopic Ultrasonography Upper(Not Applicable) - Jared Wasserman MD s Esophagogastroduodenoscopy(Not Applicable) - Jared Wasserman MD Operation Date: 09/12/21 17:15 <No data on this case meets the specified criteria> Surgeon Jared Wasserman MD Ditcher Operator None Estimated Blood Loss 0 Findings See Below (Liver metastasis) Specimens Liver lesions FNA Description of Procedure EUS I attest to the content of the Intraoperative Record and any orders documented therein. Any exceptions are noted below.
--- NOTE | 2021-09-12 11:45 | GI REPORT ---
Patient Name: Ming Brown Procedure Date: 09/12/2021 10:22 AM Date of : 1945 Admit Type: Inpatient Age: 75 Gender: Male Attending MD: Jared Wasserman MD Procedure: Upper GI endoscopy Providers: Jared Wasserman MD Referring MD: CHANO JOVEL Indications: Abnormal CT of the GI tract Medicines: General Anesthesia Complications: No immediate complications. Estimated Blood Loss: Estimated blood loss: none. Procedure: Pre-Anesthesia Assessment: - Prior to the procedure, a History and Physical was performed, and patient medications, allergies and sensitivities were reviewed. The patient's tolerance of previous anesthesia was reviewed. - The risks and benefits of the procedure and the sedation options and risks were discussed with the patient. All questions were answered and informed consent was obtained. - Patient identification and proposed procedure were verified prior to the procedure by the physician and the nurse. The procedure was verified in the procedure room. - Pre-procedure physical examination revealed no contraindications to sedation. After obtaining informed consent, the endoscope was passed under direct vision. Throughout the procedure, the patient's blood pressure, pulse, and oxygen saturations were monitored continuously. The Scope was introduced through the mouth, and advanced to the second part of duodenum. The upper GI endoscopy was accomplished without difficulty. The patient tolerated the procedure well. Findings: The examined esophagus was normal. The entire examined stomach was normal. The duodenal bulb and second portion of the duodenum were normal. Impression: - Normal esophagus. - Normal stomach. - Normal duodenal bulb and second portion of the duodenum. Recommendation: - Perform an upper endoscopic ultrasound (UEUS) today. Jared Wasserman MD 09/12/2021 11:44:44 AM This report has been signed electronically. Note Initiated On: 09/12/2021 10:22 AM Number of Addenda: 0 I attest to the content of the Intraoperative Record and orders documented therein, exceptions below {[id number]}
--- NOTE | 2021-09-12 11:49 | GI REPORT ---
Patient Name: Ming Brown Procedure Date: 09/12/2021 10:21 AM Date of : 1945 Admit Type: Inpatient Age: 75 Gender: Male Attending MD: Jared Wasserman MD Procedure: Upper EUS Providers: Jared Wasserman MD Referring MD: CHANO JOVEL Indications: Suspected mass in liver on CT scan Medicines: General Anesthesia Complications: No immediate complications. Estimated Blood Loss: Estimated blood loss: none. Procedure: Pre-Anesthesia Assessment: - Prior to the procedure, a History and Physical was performed, and patient medications, allergies and sensitivities were reviewed. The patient's tolerance of previous anesthesia was reviewed. - The risks and benefits of the procedure and the sedation options and risks were discussed with the patient. All questions were answered and informed consent was obtained. - Patient identification and proposed procedure were verified prior to the procedure by the physician and the nurse. The procedure was verified in the procedure room. - Pre-procedure physical examination revealed no contraindications to sedation. After obtaining informed consent, the endoscope was passed under direct vision. Throughout the procedure, the patient's blood pressure, pulse, and oxygen saturations were monitored continuously. The scope was introduced through the mouth, and advanced to the second part of duodenum. The upper EUS was accomplished without difficulty. The patient tolerated the procedure well. Findings: ENDOSONOGRAPHIC FINDING: : There was no sign of significant endosonographic abnormality in the ampulla. No masses were identified. There was no sign of significant endosonographic abnormality in the common bile duct. The maximum diameter of the duct was 5 mm. No stones and no biliary sludge were identified. Extensive hyperechoic material consistent with sludge was visualized endosonographically in the gallbladder. Multiple round lesions were identified endosonographically in the left lobe of the liver and in the right lobe of the liver. The endosonographic appearance was suggestive of metastases. The lesions were heterogenous. The largest lesion measured 20 mm in maximal cross-sectional diameter. The endosonographic borders were well-defined. Fine needle biopsy was performed. Color Doppler imaging was utilized prior to needle puncture to confirm a lack of significant vascular structures within the needle path. Six passes were made with the 25 gauge Trilibis EchoTip biopsy needle using a transgastric approach. A visible core of tissue was obtained. The cellularity of the specimen was adequate. Final cytology results are pending. Verification of patient identification for the specimen was done by the physician and nurse using the patient's name and date. There was no sign of significant endosonographic abnormality in the entire pancreas. The pancreatic duct measured up to 2 mm in diameter. There was no sign of significant endosonographic abnormality involving the celiac trunk. Impression: - Multiple metastatic lesions were found in the liver likely metastatic colorectal adenocarcinoma based on CT scan findings. Fine needle biopsy performed. - There was no sign of significant pathology in the ampulla. - There was no sign of significant pathology in the common bile duct. - Hyperechoic material consistent with sludge was visualized endosonographically in the gallbladder. - There was no sign of significant pathology in the entire pancreas. - The celiac trunk was endosonographically normal. Recommendation: - [facility]. - Await cytology results. - Refer to Oncology. Jared Wasserman MD 09/12/2021 11:48:54 AM This report has been signed electronically. Note Initiated On: 09/12/2021 10:21 AM Number of Addenda: 0 I attest to the content of the Intraoperative Record and orders documented therein, exceptions below {[id number]}
--- NOTE | 2021-09-12 12:21 | Anesthesiology Progress Note ---
Date of Service September 12, 2021 Anesthesia Post Procedure Vital Signs Vital Signs: Temp Pulse Pulse Pulse Resp BP Pulse Ox 09/12/21 12:05 77 20 100/55 L 99 09/12/21 11:55 74 15 100/55 L 100 09/12/21 11:45 75 19 97/55 L 100 09/12/21 11:38 36.5 C 78 19 87/52 L 100 09/12/21 09:41 36.8 C 68 18 98/55 L 100 09/12/21 07:00 36.3 C L 61 18 106/39 L 98 09/12/21 03:00 36.6 C 66 18 100/52 L 95 09/11/21 22:36 37.1 C 60 18 112/61 98 09/11/21 18:35 37.1 C 65 16 95/55 L 99 09/11/21 16:06 62 09/11/21 15:53 36.9 C 60 16 90/56 L 100 09/11/21 14:00 63 09/11/21 13:49 36.8 C 64 20 87/54 L 98 Transfer of Care Handoff Completed per policy Notes Mental Status: alert / awake / arousable Patient Amnestic to Procedure: Yes Nausea / Vomiting: adequately controlled Pain: adequately controlled Airway Patency, RR, SpO2: stable & adequate BP & HR: stable & adequate Hydration State: stable & adequate Anesthetic Complications: no major complications apparent and Pt Satisfied with anesthetic care
--- NOTE | 2021-09-12 13:38 | Communication Note ---
Date of Service: September 12, 2021 Patient was not in room, down for EGD/EUS during rounding at 9:30 am. Colonoscopy cancelled as patient did not tolerate bowel prep. EGD/EUS and liver lesion biopsy. Will await results of EUS and biopsy and determine next plans from surgical prospective.
--- NOTE | 2021-09-12 16:09 | Communication Note ---
Date of Service: September 12, 2021 EUS with FNA suggestive of metastatic Liver lesion, source is likely the colon mass seen on CT scan as intussusception. Patient is not able to do a bowel prep hence will hold off on colonoscopy for now. He is moving his bowel normal for now. Advance diet as tolerated. Suggest Oncology consult. Recall if needed.
[2021-09-12] MEDS ORDERED: DAPTOmycin 325 MG in SYRINGE 0 ML IV SCH (23:00)
--- NOTE | 2021-09-12 23:44 | Hospitalist Progress Note ---
Date of Service September 12, 2021 Assessment & Plan (1) Anemia: (2) Lesion of liver: (3) Ileocolic intussusception: (4) Weakness: (5) Weight loss: Plan: 75-year-old male who presents with ongoing weakness and tiredness and loss of weight. Generalized weakness associated with wait loss CT abd/pelvis showed liver is enlarged and is infiltrated by numerous low- attenuation mass lesions. These are pathologically indeterminant but concerning for multifocal hepatic metastatic disease. There is evidence of ileocolic intussusception with mild surrounding infiltration and fluid. GI on board Status post EUS with FNA suggestive of metastatic Liver lesion, source is likely the colon mass seen on CT scan as intussusception. Patient was not able to do a bowel prep, colonoscopy was cancelled Case discussed with GI that recommended follow-up with oncology once pathology from the biopsy ressult No need to proceed with colonoscopy Advance diet as tolerated. We will arrange for appointment with oncology as an outpatient PT OT eval Acute knee injury Creatinine on admission 3 with baseline creatinine 1.8 Creatinine today 3.04 Continue IV fluid Lisinopril on hold Continue the BMP Elevated WBC Elevated lactate Elevated procalcitonin Possible related to UTI versus malignancy Urine positive for gram-positive cocci Blood culture no growth for now Received IV fluid Lactate normalized and WBC trending down Continue IV antibiotic with Dapto and Zosyn Continue monitor CBC Elevated troponin Mostly due to dehydration and GEMMA EKG showed no ischemic changes Denies any chest pain Troponin trended down to normal Continue metoprolol Started on hold since patient on Dapto Hypertension Continue home medication of hydralazine, diltiazem, and metoprolol. Continue to hold lisinopril due to GEMMA History of hemorrhagic stroke with residual hemiparesis. Continue PT/OT when stable. Deep venous thrombosis prophylaxis: Heparin subcutaneous. Admission and Anticipated Discharge Date Admission Date: September 11, 2021 Subjective Pt was seen and examined for follow up of weakness and poor appetite Lying in bed with no acute distress Patient said that he feels thirsty and would like to get something to drink Denies any chest pain, palpitation, dizziness, shortness of breath. Review of Systems Review of Systems: All systems reviewed & are unremarkable except as noted in Subjective Physical Exam Physical Exam: General- No acute distress, cachectic Head- atraumatic Eyes- PERRL, EOMI, ENT- oropharynx clear Neck- supple, no JVD Lungs- clear to auscultation Heart- regular rhythm; no murmur Abdomen- normal bowel sounds, soft, nontender Extremities- no calf tenderness Neuro- alert, oriented x 3; PERRL, EOMI; no facial palsy; no dysarthria Skin- warm & dry Results & Data Results & Data ([facility]) Vital Signs (Past 12 Hours) Vital Signs Temp Pulse Pulse Pulse Resp BP Pulse Ox 09/12/21 19:59 36.4 C L 76 16 103/61 99 09/12/21 15:07 36.5 C 71 18 92/39 L 99 09/12/21 15:00 65 09/12/21 13:48 36.4 C L 71 19 96/40 L 99 09/12/21 13:45 36.4 C L 70 18 90/46 L 99 09/12/21 12:50 71 09/12/21 12:25 36.5 C 72 16 92/52 L 98 09/12/21 12:05 77 20 93/52 L 99 09/12/21 11:55 74 15 100/55 L 100 09/12/21 11:45 75 19 97/55 L 100
[2021-09-13] MEDS: HEPARIN SOD 5,000 UNIT/0.5 ML VIAL SQ SCH ×3 (05:50→19:42)
[2021-09-13 06:07] LABS: Hemoglobin 8.9 g/dL (14.0-18.0); Mean Corpuscular Hemoglobin 31.9 pg (25-34); Mean Corpuscular Volume 96.8 fL (80-100); Mean Platelet Volume 9.4 fL (7.4-10.4); Platelet Count 275 K/uL (130-400); RDW Coefficient of Variation 15.2 % (11.5-14.5); RDW Standard Deviation 53.7 fL (36.4-46.3); Red Blood Count 2.79 M/uL (4.7-6.1); White Blood Count 11.34 K/uL (4.8-10.8)
[2021-09-13 06:46] LABS: BUN Creatinine Ratio 12.1 (10-20); Calcium 8.5 mg/dl (8.5-10.1); Creatinine Clr Calc Pharmacy 25.8 ml/min; Est GFR (African American) 36.2 ml/min; Est GFR (Non-African American) 31.2 ml/min; Potassium 3.3 mmol/L (3.5-5.1)
[2021-09-13] MEDS: D5W AND NSS 1,000 ML IV SCH ×2 (07:51→17:21)
[2021-09-13] MEDS: METOPROLOL TARTRATE 25 MG TAB PO SCH ×2 (08:14→19:41)
[2021-09-13] MEDS: hydrALAZINE HCL 25 MG TAB PO SCH ×3 (08:14→19:41)
[2021-09-13] MEDS: dilTIAZem HCL 180 MG CAPCR PO SCH (08:14)
[2021-09-13] MEDS ORDERED: POTASSIUM CHLORIDE 10 MEQ TABCR PO STA (09:41)
[2021-09-13] MEDS: PIPERACILLIN/TAZOBACTAM 3.375 GM in DEXTROSE 5% 100 ML IV SCH ×2 (10:36→19:40)
[2021-09-13] MEDS: CALCITRIOL 0.25 MCG CAPSULE PO SCH (10:37)
[2021-09-13] MEDS: CHOLECALCIFEROL 1,000 UNITS 25 MCG TAB PO SCH (10:38)
--- NOTE | 2021-09-13 13:55 | Surgery Progress Note ---
Date of Service September 13, 2021 Assessment & Plan (1) Ileocolic intussusception: (2) Lesion of liver: (3) Leukocytosis: (4) Acute on chronic kidney failure: Plan: 75 year-old male with increasing weakness, 20 pound weight loss with increasing anorexia, with CT scan showing possible ileocolic intussusception and liver lesions concerning for metastatic disease. Never had a prior colonoscopy. Cachexia on exam. Elevated leukocytosis. lactic acid normalized. Underwent EGD/EUS yesterday as unable to tolerate bowel prep for colonoscopy. Liver biopsy obtained. Plan: No immediate surgical intervention required at this time. Await results of EUS and liver biopsy Continue IV abx diet as tolerated will follow along. Dr. torrez has seen patient and agrees with above Admission and Anticipated Discharge Date Admission Date: September 11, 2021 Subjective sitting up in bed, sleeping upon entering room denies of any abdominal pain drinking boost Physical Exam Constitutional: + thin, + cachectic, + frail appearing and comfortable; no acute distress, not ill appearing and not in distress Skin: no rashes, warm and dry Psychiatric: Orientation: alert Results & Data ([facility]) Vital Signs (Past 12 Hours) Vital Signs Temp Pulse Resp BP Pulse Ox 09/13/21 11:20 36.8 C 66 16 105/54 L 99 09/13/21 11:15 36.4 C L 69 14 103/49 L 97 09/13/21 07:27 36.3 C L 61 16 100/40 L 99 09/13/21 04:07 36.7 C 72 16 109/55 L 98 Laboratory Results 09/13/21 09/13/21 09/13/21 Range/Units 05:25 05:25 05:25 WBC 11.34 H (4.8-10.8) K/uL RBC 2.79 L (4.7-6.1) M/uL Hgb 8.9 L (14.0-18.0) g/dL Hct 27.0 L (42-52) % MCV 96.8 (80-100) fL MCH 31.9 (25-34) pg MCHC 33.0 (32-36) g/dL RDW Std Deviation 53.7 H (36.4-46.3) fL RDW Coeff of Cliff 15.2 H (11.5-14.5) % Plt Count 275 (130-400) K/uL MPV 9.4 (7.4-10.4) fL Sodium 148 H (136-145) mmol/L Potassium 3.3 L D (3.5-5.1) mmol/L Chloride 117 H (98-107) mmol/L Carbon Dioxide 26 (21-32) mmol/L Anion Gap 5.0 (3-11) BUN 25 H D (7-18) mg/dl Creatinine 2.05 H D (0.6-1.4) mg/dl Est Cr Clr Drug Dosing 25.8 ml/min Est GFR ( Amer) 36.2 ml/min Est GFR (Non-Af Amer) 31.2 ml/min BUN/Creatinine Ratio 12.1 (10-20) Glucose 127 H (70-99) mg/dl Calcium 8.5 (8.5-10.1) mg/dl Procalcitonin 12.44 H (0-0.5) ng/ml (1) Leukocytosis Leukocytosis type: unspecified Qualified Code(s): D72.829 - Elevated white blood cell count, unspecified (2) Acute on chronic kidney failure Acute renal failure type: unspecified Chronic kidney disease stage: unspecified stage Qualified Code(s): N17.9 - Acute kidney failure, unspecified; N18.9 - Chronic kidney disease, unspecified
--- NOTE | 2021-09-13 23:49 | Hospitalist Progress Note ---
Date of Service September 13, 2021 Assessment & Plan (1) Anemia: (2) Lesion of liver: (3) Ileocolic intussusception: (4) Weakness: (5) Weight loss: Plan: 75-year-old male who presents with ongoing weakness and tiredness and loss of weight. Generalized weakness associated with wait loss CT abd/pelvis showed liver is enlarged and is infiltrated by numerous low- attenuation mass lesions. These are pathologically indeterminant but concerning for multifocal hepatic metastatic disease. There is evidence of ileocolic intussusception with mild surrounding infiltration and fluid. GI on board Status post EUS with FNA suggestive of metastatic Liver lesion, source is likely the colon mass seen on CT scan as intussusception. Patient was not able to do a bowel prep, colonoscopy was cancelled Case discussed with GI that recommended follow-up with oncology once pathology from the biopsy ressult No need to proceed with colonoscopy Advance diet as tolerated. We will arrange for appointment with oncology as an outpatient PT OT eval Acute knee injury Creatinine on admission 3 with baseline creatinine 1.8 Creatinine today 2.05 Continue IV fluid Lisinopril on hold Continue the BMP Elevated WBC Elevated lactate Elevated procalcitonin Possible related to UTI versus malignancy Urine positive for gram-positive cocci Blood culture no growth for now Received IV fluid Lactate normalized and WBC trending down Continue IV antibiotic with Dapto and Zosyn Continue monitor CBC Elevated troponin Mostly due to dehydration and GEMMA EKG showed no ischemic changes Denies any chest pain Troponin trended down to normal Continue metoprolol Started on hold since patient on Dapto Hypertension Continue home medication of hydralazine, diltiazem, and metoprolol. Continue to hold lisinopril due to GEMMA History of hemorrhagic stroke with residual hemiparesis. Continue PT/OT when stable. Deep venous thrombosis prophylaxis: Heparin subcutaneous. Admission and Anticipated Discharge Date Admission Date: September 11, 2021 Subjective Pt was seen and examined for follow up of weakness and poor appetite Lying in bed with no acute distress Patient said that at home he uses walker to move around Denies any chest pain, palpitation, dizziness, shortness of breath. Review of Systems Review of Systems: All systems reviewed & are unremarkable except as noted in Subjective Physical Exam Physical Exam: General- No acute distress, cachectic Head- atraumatic Eyes- PERRL, EOMI, ENT- oropharynx clear Neck- supple, no JVD Lungs- clear to auscultation Heart- regular rhythm; no murmur Abdomen- normal bowel sounds, soft, nontender Extremities- no calf tenderness Neuro- alert, oriented x 3; PERRL, EOMI; no facial palsy; no dysarthria Skin- warm & dry Results & Data Results & Data ([facility]) Vital Signs (Past 12 Hours) Vital Signs Temp Pulse Pulse Resp BP Pulse Ox 09/13/21 23:23 67 09/13/21 23:21 37.0 C 73 18 105/64 97 09/13/21 19:05 36.9 C 79 18 108/63 98 09/13/21 15:51 37 C 72 16 93/54 L 98
[2021-09-14] MEDS: D5W AND NSS 1,000 ML IV SCH (03:21)
[2021-09-14] MEDS: HEPARIN SOD 5,000 UNIT/0.5 ML VIAL SQ SCH ×3 (05:10→21:31)
[2021-09-14 08:00] LABS: Hematocrit (blood only) 28.9 % (42-52); Hemoglobin 9.6 g/dL (14.0-18.0); Mean Corpuscular Hemoglobin 31.7 pg (25-34); Mean Corpuscular Hgb Conc 33.2 g/dL (32-36); Mean Corpuscular Volume 95.4 fL (80-100); Mean Platelet Volume 9.4 fL (7.4-10.4); Platelet Count 285 K/uL (130-400); RDW Coefficient of Variation 15.8 % (11.5-14.5); RDW Standard Deviation 54.7 fL (36.4-46.3); Red Blood Count 3.03 M/uL (4.7-6.1); White Blood Count 10.42 K/uL (4.8-10.8)
[2021-09-14 08:39] LABS: Albumin Level 1.8 gm/dl (3.4-5.0); BUN Creatinine Ratio 8.9 (10-20); Creatinine Clr Calc Pharmacy 30.5 ml/min; Est GFR (African American) 41.8 ml/min; Potassium 3.5 mmol/L (3.5-5.1)
[2021-09-14 08:45] LABS: Albumin Globulin Ratio 0.4 (0.9-2); Bilirubin,Total 1.1 mg/dl (0.2-1); Globulin 4.3 gm/dl (2.5-4.0); Total Protein 6.1 gm/dl (6.4-8.2)
[2021-09-14] MEDS ORDERED: cefTRIAXone SODIUM 1,000 MG in DEXTROSE 5% 50 ML IV SCH (09:00)
[2021-09-14] MEDS: PIPERACILLIN/TAZOBACTAM 3.375 GM in DEXTROSE 5% 100 ML IV SCH (09:16)
[2021-09-14] MEDS: CHOLECALCIFEROL 1,000 UNITS 25 MCG TAB PO SCH (10:02)
[2021-09-14] MEDS: CALCITRIOL 0.25 MCG CAPSULE PO SCH (10:02)
[2021-09-14] MEDS: dilTIAZem HCL 180 MG CAPCR PO SCH (10:03)
[2021-09-14] MEDS: METOPROLOL TARTRATE 25 MG TAB PO SCH ×2 (10:04→19:59)
[2021-09-14] MEDS: hydrALAZINE HCL 25 MG TAB PO SCH ×3 (10:05→19:59)
--- NOTE | 2021-09-14 13:13 | Surgery Progress Note ---
Date of Service September 14, 2021 Assessment & Plan (1) Ileocolic intussusception: (2) Lesion of liver: (3) Leukocytosis: (4) Acute on chronic kidney failure: Plan: 75 year-old male with increasing weakness, 20 pound weight loss with increasing anorexia, with CT scan showing possible ileocolic intussusception and liver lesions concerning for metastatic disease. Never had a prior colonoscopy. Cachexia on exam. Elevated leukocytosis. lactic acid normalized. Underwent EGD/EUS yesterday as unable to tolerate bowel prep for colonoscopy. 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 Plan: No immediate surgical intervention required at this time as there is no signs of obstruction and patient tolerated diet and having bowel function. Needs oncology consultation for discussion of treatment options our services signing off, please call with questions concerns Dr. torrez has seen patient and agrees with above Admission and Anticipated Discharge Date Admission Date: September 11, 2021 Subjective patient sitting up in chair at bedside asleep upon entering room denies of any abdominal pain had bowel movement tolerating diet no nausea or vomiting Physical Exam Constitutional: + thin, + cachectic, + frail appearing and comfortable; no acute distress and not ill appearing Skin: no rashes, warm and dry Psychiatric: Orientation: alert and oriented x 3 Results & Data ([facility]) Vital Signs (Past 12 Hours) Vital Signs Temp Pulse Pulse Pulse Resp BP Pulse Ox 09/14/21 11:49 36.6 C 80 18 96/61 L 98 09/14/21 10:06 115 H 110/67 09/14/21 08:09 36.7 C 83 18 122/71 99 09/14/21 07:27 88 09/14/21 04:29 36.5 C 83 18 118/73 91 Laboratory Results 09/14/21 09/14/21 Range/Units 07:40 07:40 WBC 10.42 (4.8-10.8) K/uL RBC 3.03 L (4.7-6.1) M/uL Hgb 9.6 L (14.0-18.0) g/dL Hct 28.9 L (42-52) % MCV 95.4 (80-100) fL MCH 31.7 (25-34) pg MCHC 33.2 (32-36) g/dL RDW Std Deviation 54.7 H (36.4-46.3) fL RDW Coeff of Cliff 15.8 H (11.5-14.5) % Plt Count 285 (130-400) K/uL MPV 9.4 (7.4-10.4) fL Sodium 149 H (136-145) mmol/L Potassium 3.5 (3.5-5.1) mmol/L Chloride 119 H (98-107) mmol/L Carbon Dioxide 23 (21-32) mmol/L Anion Gap 7.0 (3-11) BUN 16 (7-18) mg/dl Creatinine 1.82 H (0.6-1.4) mg/dl Est Cr Clr Drug Dosing 30.5 ml/min Est GFR ( Amer) 41.8 ml/min Est GFR (Non-Af Amer) 36.0 ml/min BUN/Creatinine Ratio 8.9 L (10-20) Glucose 95 (70-99) mg/dl Calcium 9.0 (8.5-10.1) mg/dl Total Bilirubin 1.1 H (0.2-1) mg/dl AST 101 H (15-37) U/L ALT 65 (12-78) U/L Alkaline Phosphatase 247 H (45-117) U/L Total Protein 6.1 L (6.4-8.2) gm/dl Albumin 1.8 L (3.4-5.0) gm/dl Globulin 4.3 H (2.5-4.0) gm/dl Albumin/Globulin Ratio 0.4 L (0.9-2) (1) Leukocytosis Leukocytosis type: unspecified Qualified Code(s): D72.829 - Elevated white blood cell count, unspecified (2) Acute on chronic kidney failure Acute renal failure type: unspecified Chronic kidney disease stage: unspecified stage Qualified Code(s): N17.9 - Acute kidney failure, unspecified; N18.9 - Chronic kidney disease, unspecified
--- NOTE | 2021-09-14 23:56 | Hospitalist Progress Note ---
Date of Service September 14, 2021 Assessment & Plan (1) Anemia: (2) Lesion of liver: (3) Ileocolic intussusception: (4) Weakness: (5) Weight loss: Plan: 75-year-old male who presents with ongoing weakness and tiredness and loss of weight. Generalized weakness associated with wait loss CT abd/pelvis showed liver is enlarged and is infiltrated by numerous low- attenuation mass lesions. These are pathologically indeterminant but concerning for multifocal hepatic metastatic disease. There is evidence of ileocolic intussusception with mild surrounding infiltration and fluid. GI on board Status post EUS with FNA suggestive of metastatic Liver lesion, source is likely the colon mass seen on CT scan as intussusception. Patient was not able to do a bowel prep, colonoscopy was cancelled Case discussed with GI that recommended follow-up with oncology once pathology from the biopsy ressult No need to proceed with colonoscopy Liver biopsy obtained which is showing metastatic adenocarcinoma consistent with colon primary. Advance diet as tolerated. We will arrange for appointment with oncology as an outpatient PT OT eval Acute knee injury Creatinine on admission 3 with baseline creatinine 1.8 Creatinine today 1.8 We will discontinue IV fluids We will resume lisinopril on discharge Continue the BMP Elevated WBC Elevated lactate Elevated procalcitonin Possible related to UTI versus malignancy Urine positive for gram-positive cocci Blood culture no growth for now Received IV fluid Lactate normalized and WBC trending down Received IV antibiotic with Dapto and Zosyn for 4 days, will transition to ceftriaxone Patient is afebrile Continue monitor CBC Elevated troponin Mostly due to dehydration and GEMMA EKG showed no ischemic changes Denies any chest pain Troponin trended down to normal Continue metoprolol Started on hold since patient on Dapto Hypertension Continue home medication of hydralazine, diltiazem, and metoprolol. Continue to hold lisinopril due to GEMMA History of hemorrhagic stroke with residual hemiparesis. Continue PT/OT when stable. Deep venous thrombosis prophylaxis: Heparin subcutaneous. Disposition Discharge home tomorrow Admission and Anticipated Discharge Date Admission Date: September 11, 2021 Subjective Pt was seen and examined for follow up of weakness and poor appetite Sitting in chair eating lunch with no acute distress He said that he feels much better Patient said that at home he uses walker to move around I asked him if he wants me to call any family member to update about his hospitalization, patient declined Denies any chest pain, palpitation, dizziness, shortness of breath. Review of Systems Review of Systems: All systems reviewed & are unremarkable except as noted in Subjective Physical Exam Physical Exam: General- No acute distress, cachectic Head- atraumatic Eyes- PERRL, EOMI, ENT- oropharynx clear Neck- supple, no JVD Lungs- clear to auscultation Heart- regular rhythm; no murmur Abdomen- normal bowel sounds, soft, nontender Extremities- no calf tenderness Neuro- alert, oriented x 3; PERRL, EOMI; no facial palsy; no dysarthria Skin- warm & dry Results & Data Results & Data ([facility]) Vital Signs (Past 12 Hours) Vital Signs Temp Pulse Pulse Resp BP Pulse Ox 09/14/21 23:34 73 09/14/21 23:08 36.8 C 73 16 117/65 98 09/14/21 19:26 36.8 C 73 16 115/65 98 09/14/21 16:10 70 09/14/21 15:00 36.8 C 68 101/45 L 99
[2021-09-15] MEDS: HEPARIN SOD 5,000 UNIT/0.5 ML VIAL SQ SCH ×2 (06:32→13:14)
[2021-09-15 07:01] LABS: BUN Creatinine Ratio 10.2 (10-20); Calcium 8.9 mg/dl (8.5-10.1); Creatinine Clr Calc Pharmacy 36.1 ml/min; Est GFR (African American) 49.2 ml/min; Est GFR (Non-African American) 42.4 ml/min; Potassium 3.8 mmol/L (3.5-5.1)
[2021-09-15] MEDS: hydrALAZINE HCL 25 MG TAB PO SCH ×2 (08:17→13:14)
[2021-09-15] MEDS: dilTIAZem HCL 180 MG CAPCR PO SCH (08:17)
[2021-09-15] MEDS: CHOLECALCIFEROL 1,000 UNITS 25 MCG TAB PO SCH (08:17)
[2021-09-15] MEDS: METOPROLOL TARTRATE 25 MG TAB PO SCH (08:17)
[2021-09-15] MEDS: CALCITRIOL 0.25 MCG CAPSULE PO SCH (08:17)
--- NOTE | 2021-09-15 13:50 | Discharge Summary ---
Date of Service September 15, 2021 Admission HPI Per Admitting Provider HISTORY OF PRESENT ILLNESS: This is a 75-year-old male with past medical history significant for hypertension, vitamin D deficiency, chronic kidney disease stage III, spastic hemiplegia and hemiparesis affecting the left, history of hemorrhagic stroke with a residual hemiparesis, who presents with ongoing weakness for the last 10 days. The patient lives alone, ambulates with a walker. His family lives near the [facility]. The patient says his home health nurse helps him with groceries and other stuff. He cooks his own food. He says these last 10 days he is feeling weak and tired, that is the reason he came to the ER today and the last few days also his appetite has decreased. He says he lost about 20-30 pounds in last 6 months. Denies any chest pain, no shortness of breath, no cough, no fever, no chills, no abdominal pain. Denies any blood in the stools or black stools. Denies any hematuria. Denies any swelling in the legs. No headache, no blurred visions, no earache, no runny nose, no sore throat, no cough, no fevers. Currently, resting comfortably and hemodynamically stable. Admission Exam Per Admitting Provider GENERAL: The patient is thin and frail, not in acute distress. VITAL SIGNS: Temperature 36.4, pulse 75, respiratory rate 12, blood pressure 108/59, oxygen 98% on room air. HEENT: Pupils equal, round and reactive to light. Oral mucosa moist. NECK: No JVD, no neck masses. CARDIOVASCULAR: S1 and S2 heard. Regular rate and rhythm. No murmur, no gallop. RESPIRATORY SYSTEM: Normal AP diameter. No accessory muscle use. No wheezing, no crackles. ABDOMEN: Soft, bowel sounds present, nontender, no distention. CENTRAL NERVOUS SYSTEM: Cranial nerves II-XII grossly intact, nonfocal. EXTREMITIES: No edema, no erythema. Principal Diagnosis 1) Anemia: (2) Lesion of liver: (3) Ileocolic intussusception: (4) Weakness: (5) Weight loss: (6) Acute knee injury (7) Elevated WBC (8) Elevated lactate (9) Elevated procalcitonin (10)Elevated troponin (11)Hypertension Discharge Exam General- No acute distress, cachectic Head- atraumatic Eyes- PERRL, EOMI, ENT- oropharynx clear Neck- supple, no JVD Lungs- clear to auscultation Heart- regular rhythm; no murmur Abdomen- normal bowel sounds, soft, nontender Extremities- no calf tenderness Neuro- alert, oriented x 3; PERRL, EOMI; no facial palsy; no dysarthria Skin- warm & dry Discharge Data Allergies Allergy/AdvReac Type Severity Reaction Status Date / Time No Known Allergies Allergy Unknown Verified 09/10/21 17:59 Consultations 09/10/21 22:52 ED Decision to Admit Stat 09/11/21 08:00 Consult Gastroenterology Routine Consult General Surgery Routine Procedures Performed Operation Date: 09/12/21 09:25 Actual Procedures p Endoscopic Ultrasonography Upper(Not Applicable) - Jared Wasserman MD s Esophagogastroduodenoscopy(Not Applicable) - Jared Wasserman MD Operation Date: 09/12/21 17:15 <No data on this case meets the specified criteria> Ordered Studies 09/10/21 17:57 CT head/brain wo con Stat 09/10/21 19:53 CT abd pelvis wo con Stat CT chest diagnostic wo con Stat 09/12/21 10:18 US upper EUS PACS images Routine Hospital Course (1) Anemia: (2) Lesion of liver: (3) Ileocolic intussusception: (4) Weakness: (5) Weight loss: 75-year-old male who presents with ongoing weakness and tiredness and loss of weight. Generalized weakness associated with wait loss CT abd/pelvis showed liver is enlarged and is infiltrated by numerous low- attenuation mass lesions. These are pathologically indeterminant but concerning for multifocal hepatic metastatic disease. There is evidence of ileocolic intussusception with mild surrounding infiltration and fluid. GI on board Status post EUS with FNA suggestive of metastatic Liver lesion, source is likely the colon mass seen on CT scan as intussusception. Patient was not able to do a bowel prep, colonoscopy was cancelled Case discussed with GI that recommended follow-up with oncology once pathology from the biopsy ressult No need to proceed with colonoscopy Liver biopsy obtained which is showing metastatic adenocarcinoma consistent with colon primary. Advance diet as tolerated. We will arrange for appointment with oncology as an outpatient PT OT eval Acute knee injury Creatinine on admission 3 with baseline creatinine 1.8 Creatinine today 1.5 We will discontinue IV fluids We will resume lisinopril on discharge Continue the BMP Elevated WBC Elevated lactate Elevated procalcitonin Possible related to UTI versus malignancy Urine positive for gram-positive cocci Blood culture no growth for now Received IV fluid Lactate normalized and WBC trending down Received IV antibiotic with Dapto and Zosyn for 4 days, will transition to ceftriaxone Patient is afebrile Continue monitor CBC Elevated troponin Mostly due to dehydration and GEMMA EKG showed no ischemic changes Denies any chest pain Troponin trended down to normal Continue metoprolol Started on hold since patient on Dapto Hypertension Continue home medication, diltiazem, and metoprolol. Continue to hold lisinopril due to GEMMA Hydralazine on hold as well since BP in the low side History of hemorrhagic stroke with residual hemiparesis. Continue PT/OT when stable. Deep venous thrombosis prophylaxis: Heparin subcutaneous. Disposition Discharge home today Total Time Total Time Spent Total Time Spent (In Minutes): 35 minutes Discharge Plan Discharge Items Patient Disposition: Home - Home Health Services Reason For Visit: WEAKNESS Discharge Diagnosis: 1) Anemia: (2) Lesion of liver: (3) Ileocolic intussusception: (4) Weakness: (5) Weight loss: (6) Acute knee injury (7) Elevated WBC (8) Elevated lactate (() Elevated procalcitonin Activity: Resume your previous activity Non-emergency contact: Primary Care Provider and Oncologist Call non-emergency contact if: you have any medication questions Follow-up/Referrals: Rajiv Monsalve, [Primary Care Provider] - Diet: Heart Healthy Addtl Attending Provider Instructions: Follow up with your primary care provider Dr. Monsalve on 09/18/21 @ 2PM Continue physical and occupational therapy Follow up with Oncology to discuss about management for your new diagnostic malignancy ( office will call you for the appointment) Continue to hold hydralazine for your blood pressure (Continue monitor your blood pressure and bring your blood pressure log at next appointment with your provider) Please hold lisinopril for now. Your Blood pressure medications can restart once your blood pressure starts elevating Check BMP in 1 week to monitor your electrolytes and renal function Fall precaution Pending Studies at Discharge: No Stand-Alone Forms: My [place], Smoking Cessation Medications and DC Order Prescriptions: Continued diltiazem HCl 180 mg capsule,extended release 24hr 360 mg PO DAILY RF: 0 simvastatin 20 mg tablet 20 mg PO DAILY RF: 0 metoprolol tartrate 25 mg tablet 12.5 mg PO BID RF: 0 cholecalciferol (vitamin D3) [Vitamin D3] 50 mcg (2,000 unit) capsule 2,000 unit PO DAILY RF: 0 calcitriol 0.5 mcg capsule 0.5 mcg PO DAILY RF: 0 Discontinued hydralazine 25 mg tablet 25 mg PO TID RF: 0 lisinopril 5 mg tablet 5 mg PO DAILY RF: 0 Discharge Orders: Discharge Order (Routine); Ordered 09/15/21 Ordered By: Clementine Gonzáles Admission Data Admit Date/Time: 09/11/21 02:15 Attending Provider: Clementine Gonzáles Admit Provider: Leif Wright Primary Care Provider: Rajiv Monsalve Other Providers: Nicholas Tate ; Jared Wasserman Other Interventions: Discharge Summary Assessment (RN) Last Done: 09/15/21 17:27
== END 2021-09-15 17:40 | disposition home health service (06) | DRG 357 ==
LOC: ED 16:52 → EDINP 09-11 02:15 → SUATTDRO 09-11 02:15 → 2N 09-11 05:14
DX: E07.0 Hypersecretion of calcitonin; Z79.899 Other long term (current) drug therapy; E55.9 Vitamin D deficiency, unspecified; D64.9 Anemia, unspecified; Z68.1 Body mass index [BMI] 19.9 or less, adult; N17.9 Acute kidney failure, unspecified; C78.7 Secondary malignant neoplasm of liver and intrahepatic bile duct; R63.4 Abnormal weight loss; Z20.822 Contact with and (suspected) exposure to COVID-19; E86.0 Dehydration; R77.8 Other specified abnormalities of plasma proteins; N39.0 Urinary tract infection, site not specified; C18.8 Malignant neoplasm of overlapping sites of colon; Z53.8 Procedure and treatment not carried out for other reasons; R64 Cachexia; E21.3 Hyperparathyroidism, unspecified; R74.8 Abnormal levels of other serum enzymes; D72.829 Elevated white blood cell count, unspecified; N18.30 Chronic kidney disease, stage 3 unspecified; I69.254 Hemiplegia and hemiparesis following other nontraumatic intracranial hemorrhage affecting left non-dominant side; K56.1 Intussusception; I12.9 Hypertensive chronic kidney disease with stage 1 through stage 4 chronic kidney disease, or unspecified chronic kidney disease; R53.1 Weakness

== ENCOUNTER 2021-10-02 13:12 | Inpatient (IN) ==
[2021-10-02] MEDS ORDERED: SODIUM CHLORIDE 0.9% 1000ML 1,000 ML IV ONE (14:02)
--- NOTE | 2021-10-02 14:15 | Emergency Department Note ---
History of Present Illness General Chief complaint: Illness Stated complaint: WEAKNESS Time Seen by Provider: 10/02/21 13:47 Source: patient Mode of arrival: EMS Limitations: no limitations History of Present Illness Maximum Pain Intensity: 0 This patient is a 75-year-old male with past medical history of recently d iagnosed colon cancer with liver metastasis who presents to the emergency department for evaluation of increasing weakness. Patient states that he feels weak and dehydrated. He does not believe he is getting enough calories. He has not been eating or drinking much because he is too weak to do so. He states he needs to use his wheelchair to get back and forth to the kitchen and it takes a lot of energy to do so. He states symptoms have been worsening over the past 2 to 3 weeks. He did have a recent hospitalization here for the same symptoms and was diagnosed with cancer at that time. He has not yet seen oncology. He is not currently receiving any treatment for this. Home Medications Medication Instructions Recorded Confirmed Type cholecalciferol (vitamin D3) 50 2,000 unit PO DAILY 09/10/21 10/02/21 History mcg (2,000 unit) capsule (Vitamin D3) diltiazem HCl 180 mg 360 mg PO DAILY 09/10/21 10/02/21 History capsule,extended release 24 hr metoprolol tartrate 25 mg tablet 12.5 mg PO BID 09/10/21 10/02/21 History simvastatin 20 mg tablet 20 mg PO DAILY 09/10/21 10/02/21 History calcitriol 0.5 mcg capsule 0.5 mcg PO DAILY 09/11/21 10/02/21 History Allergies Allergy/AdvReac Type Severity Reaction Status Date / Time No Known Allergies Allergy Unknown Verified 10/02/21 16:21 Past Med/Surg History Medical History (Updated 10/02/21 @ 23:03 by Brenda Salinas PA-C) Anemia CKD (chronic kidney disease) Colon cancer metastasized to liver HTN (hypertension) Hyperlipidemia Hypertension Stroke Surgical History Hx of tonsillectomy Family History Other Heart disease Social History Smoking Status: Never smoker Do You Dip or Chew Tobacco: No; Hx Alcohol Use: No Hx Substance Use: No Communication Ability: Effective Tax Analyst Required: No Beliefs That Will Affect Care: None Current Living Situation: Alone Current Living Situation Comment: Home Health assistance Feels Safe at Home: Yes Assistive Devices: Cane and Walker Assistive Devices Comment: wheelchair bound at this time Review of Systems A total of 10 systems reviewed and were otherwise negative Physical Exam Vital Signs Vital Signs - 24 hr 10/02/21 13:21 10/02/21 13:58 10/02/21 14:01 Temperature 36.5 C Temperature Source Oral Pulse Rate 94 H 92 H Pulse Rate [Apical] 94 H Pulse Rate from SpO2 Sensor Pulse Rhythm Regular Pulse Rhythm [Apical] Regular Respiratory Rate 20 20 12 Respiratory Effort / Characteristics Respiratory Depth Normal Normal Blood Pressure 111/65 Blood Pressure [Left Arm] 119/69 Blood Pressure Mean 80 Blood Pressure Mean [Left Arm] 85 Pulse Oximetry 100 100 100 Oxygen Delivery Method Room Air Room Air Room Air Sepsis Recent Fever Within 48 Hours No Sepsis New/Unexplained Change in Mental Status No Sepsis Action Taken by Nursing No Action Required 10/02/21 15:01 10/02/21 15:09 10/02/21 16:00 Temperature Temperature Source Pulse Rate 88 Pulse Rate [Apical] 90 Pulse Rate from SpO2 Sensor 88 93 H Pulse Rhythm Pulse Rhythm [Apical] Respiratory Rate 16 18 14 Respiratory Effort / Characteristics Respiratory Depth Blood Pressure 131/73 Blood Pressure [Left Arm] 113/66 Blood Pressure Mean 92 Blood Pressure Mean [Left Arm] 81 Pulse Oximetry 100 100 100 Oxygen Delivery Method Room Air Room Air Room Air Sepsis Recent Fever Within 48 Hours Sepsis New/Unexplained Change in Mental Status Sepsis Action Taken by Nursing 10/02/21 16:07 10/02/21 17:00 Temperature Temperature Source Pulse Rate 88 Pulse Rate [Apical] 89 Pulse Rate from SpO2 Sensor 88 Pulse Rhythm Pulse Rhythm [Apical] Respiratory Rate 20 20 Respiratory Effort / Characteristics Non-Labored Respiratory Depth Normal Blood Pressure 122/69 Blood Pressure [Left Arm] 131/73 Blood Pressure Mean 86 Blood Pressure Mean [Left Arm] 92 Pulse Oximetry 100 100 Oxygen Delivery Method Room Air Room Air Sepsis Recent Fever Within 48 Hours Sepsis New/Unexplained Change in Mental Status Sepsis Action Taken by Nursing VITALS: Vitals are noted on the nurse's note and reviewed by myself. GENERAL: This is a 75-year-old male, lying on his side in bed, thin and cachectic appearing. SKIN: The skin was without rashes. EARS: External auditory canals clear, tympanic membranes pearly barrios without erythema or effusion bilaterally. EYES: Pupils equal round and reactive to light and accommodation. Scleral icterus noted. MOUTH: Mucous membranes dry. NECK: Supple without nuchal rigidity. No lymphadenopathy. HEART: Regular rate and rhythm without murmurs gallops or rubs. LUNGS: Clear to auscultation bilaterally without wheezes, rales or rhonchi. ABDOMEN: Positive bowel sounds x 4. Soft, nontender to palpation. NEURO: Patient was alert and oriented to person place and time. Course Administered Medications Heparin Sodium (Porcine) (Heparin Sod 5,000 Unit/0.5 Ml Vial) 5,000 units SQ Q12 [facility] Stop: 11/01/21 20:59 Last Admin: 10/02/21 22:24 Dose: 5,000 units Documented by: [id number] Dextrose/Sodium Chloride (D5w And Nss) 1,000 mls @ 80 mls/hr IV .[id number] [facility] Stop: 10/03/21 06:59 Last Admin: 10/02/21 19:15 Dose: 80 mls/hr Documented by: [id number] Ceftriaxone Sodium 1,000 mg/ (Dextrose) 50 mls @ 100 mls/hr IV Q24H [facility]; Protocol Stop: 10/12/21 21:59 Last Admin: 10/02/21 22:22 Dose: 100 mls/hr Documented by: [id number] Discontinued Medications Sodium Chloride (Nss 1000ml) 1,000 mls @ 999 mls/hr IV .[id number] ONE Stop: 10/02/21 15:02 Last Infusion: 10/02/21 16:08 Dose: 0 mls/hr Documented by: [id number] Admin: 10/02/21 15:02 Dose: 999 mls/hr Documented by: [id number] Ondansetron HCl (Ondansetron Inj 2 Mg/Ml 2 Ml Vial) 4 mg IV NOW [facility] Stop: 10/02/21 18:24 Last Admin: 10/02/21 18:31 Dose: 4 mg Documented by: [id number] Medical Decision Making Differential Diagnosis Infection, dehydration, metabolic abnormality, hypo/hyperglycemia, electrolyte disturbance, anemia, hypoxia, cardiac sources, intracerebral event, toxicologic, neurologic, as well as other pathologies. Home Medications Current Medication List: was personally reviewed by me Laboratory Data Attestation: I reviewed the patient's lab results. Result diagrams: 10/02/21 14:40 10/02/21 14:40 Lab Results 10/02/21 10/02/21 10/02/21 Range/Units 14:40 14:40 14:40 WBC 16.36 H (4.8-10.8) K/uL RBC 2.85 L (4.7-6.1) M/uL Hgb 9.2 L (14.0-18.0) g/dL Hct 28.2 L (42-52) % MCV 98.9 (80-100) fL MCH 32.3 (25-34) pg MCHC 32.6 (32-36) g/dL RDW Std Deviation 73.9 H (36.4-46.3) fL RDW Coeff of Cliff 22.9 H (11.5-14.5) % Plt Count 334 (130-400) K/uL MPV 9.5 (7.4-10.4) fL Immature Gran % (Auto) 1.4 % Neut % (Auto) 88.2 % Lymph % (Auto) 4.5 % [place] % (Auto) 5.8 % Eos % (Auto) 0.0 % Baso % (Auto) 0.1 % Neut # (Auto) 14.43 H (1.4-6.5) K/uL Lymph # (Auto) 0.74 L (1.2-3.4) K/uL [place] # (Auto) 0.95 H (0.11-0.59) K/uL Eos # (Auto) 0.00 (0-0.5) K/uL Baso # (Auto) 0.01 (0-0.2) K/uL Immature Gran # (Auto) 0.23 H (0.00-0.02) K/uL Anisocytosis Present Target Cells 2+ PT 14.6 H (9.0-12.0) Seconds INR 1.5 H (0.9-1.1) Sodium 151 H (136-145) mmol/L Potassium 4.6 (3.5-5.1) mmol/L Chloride 114 H (98-107) mmol/L Carbon Dioxide 21 (21-32) mmol/L Anion Gap 16.0 H (3-11) BUN 71 H (7-18) mg/dl Creatinine 3.00 H (0.6-1.4) mg/dl Est Cr Clr Drug Dosing 16.3 ml/min Est GFR ( Amer) 22.8 ml/min Est GFR (Non-Af Amer) 19.7 ml/min BUN/Creatinine Ratio 23.7 H (10-20) Glucose 64 L (70-99) mg/dl Calcium 9.2 (8.5-10.1) mg/dl Magnesium 2.6 H (1.8-2.4) mg/dl Total Bilirubin 7.1 H (0.2-1) mg/dl AST 372 H (15-37) U/L ALT 108 H (12-78) U/L Alkaline Phosphatase 353 H (45-117) U/L Troponin I < 0.015 (0-0.045) ng/ml Total Protein 6.6 (6.4-8.2) gm/dl Albumin 1.9 L (3.4-5.0) gm/dl Globulin 4.7 H (2.5-4.0) gm/dl Albumin/Globulin Ratio 0.4 L (0.9-2) SARS-CoV-2, RNA, NAAT (NEGATIVE) 10/02/21 Range/Units 16:05 WBC (4.8-10.8) K/uL RBC (4.7-6.1) M/uL Hgb (14.0-18.0) g/dL Hct (42-52) % MCV (80-100) fL MCH (25-34) pg MCHC (32-36) g/dL RDW Std Deviation (36.4-46.3) fL RDW Coeff of Cliff (11.5-14.5) % Plt Count (130-400) K/uL MPV (7.4-10.4) fL Immature Gran % (Auto) % Neut % (Auto) % Lymph % (Auto) % [place] % (Auto) % Eos % (Auto) % Baso % (Auto) % Neut # (Auto) (1.4-6.5) K/uL Lymph # (Auto) (1.2-3.4) K/uL [place] # (Auto) (0.11-0.59) K/uL Eos # (Auto) (0-0.5) K/uL Baso # (Auto) (0-0.2) K/uL Immature Gran # (Auto) (0.00-0.02) K/uL Anisocytosis Target Cells PT (9.0-12.0) Seconds INR (0.9-1.1) Sodium (136-145) mmol/L Potassium (3.5-5.1) mmol/L Chloride (98-107) mmol/L Carbon Dioxide (21-32) mmol/L Anion Gap (3-11) BUN (7-18) mg/dl Creatinine (0.6-1.4) mg/dl Est Cr Clr Drug Dosing ml/min Est GFR ( Amer) ml/min Est GFR (Non-Af Amer) ml/min BUN/Creatinine Ratio (10-20) Glucose (70-99) mg/dl Calcium (8.5-10.1) mg/dl Magnesium (1.8-2.4) mg/dl Total Bilirubin (0.2-1) mg/dl AST (15-37) U/L ALT (12-78) U/L Alkaline Phosphatase (45-117) U/L Troponin I (0-0.045) ng/ml Total Protein (6.4-8.2) gm/dl Albumin (3.4-5.0) gm/dl Globulin (2.5-4.0) gm/dl Albumin/Globulin Ratio (0.9-2) SARS-CoV-2, RNA, NAAT NEGATIVE (NEGATIVE) Imaging Data Attestation: I personally reviewed and interpreted this imaging study as follows: Radiologist's Impression: Chest X-Ray 10/02/21 14:02 XR chest 1V portable CLINICAL HISTORY: weakness COMPARISON STUDY: Chest radiograph and chest CT September 10, 2021. FINDINGS: Levoscoliosis of the mid to upper thoracic spine is noted. Patient may be mildly rotated Lung volumes are normal. Lungs are clear. There is no pneumothorax or pleural effusion. Cardiac size is normal. Mediastinal contours are normal. There is no evidence for pulmonary edema. IMPRESSION: No acute cardiopulmonary findings. No change in appearance of the chest. ACT 112: Negative or not required by law. Electronically signed by: Conor Salinas M.D. 10/02/2021 2:31 PM MDM Narrative Continuous cafeteria monitor: Order was placed for continuous cafeteria monitor. Patient was placed on the cafeteria monitor. Patient was noted to be in normal sinus rhythm at an initial rate of 90 bpm. The patient is a 75-year-old male who presents today complaining of increasing weakness. Patient had a recent hospitalization here due to weakness. At that time, he was found to have lesions on his liver. He had a biopsy performed and was ultimately diagnosed with colon cancer with liver metastasis. Patient appears to be very cachectic and weak on exam. He has not been caring for himself well at home. His LFTs are elevated today with a bilirubin of 7.1. INR mildly elevated at 1.5. Creatinine is elevated at 3, up from patient's baseline. I do not feel that the patient can safely be discharged home, as he needs significantly more care at home and would likely benefit from a palliative medicine consult. Case was discussed with the [facility] hospitalist, Meredith Oneal, who agreed to evaluate the patient for further care. Impression & Plan Weakness, Colon cancer metastasized to liver, Acute on chronic kidney failure, Hyperbilirubinemia Discharge Plan Visit Data Chief Complaint: Illness Stated Complaint: WEAKNESS ED Provider: Mendoza Aaron ED Midlevel Provider: Brenda Salinas Discharge Problem: Weakness, Colon cancer metastasized to liver, Acute on chronic kidney failure, Hyperbilirubinemia Patient Disposition: Admitted As Inpatient Discharge Instructions Interventions: ED Discharge Assessment Last Done: 10/02/21 20:30
--- NOTE | 2021-10-02 14:33 | XRay Report ---
XR chest 1V portable CLINICAL HISTORY: weakness COMPARISON STUDY: Chest radiograph and chest CT September 10, 2021. FINDINGS: Levoscoliosis of the mid to upper thoracic spine is noted. Patient may be mildly rotated [place] ng volumes are normal. Lungs are clear. There is no pneumothorax or pleural effusion. Cardiac size is normal. Mediastinal contours are normal. There is no evidence for pulmonary edema. IMPRESSION: No acute cardiopulmonary findings. No change in appearance of the chest. ACT 112: Negative or not required by law. Electronically signed by: Conor Salinas M.D. 10/02/2021 2:31 PM
[2021-10-02 15:18] LABS: Basophils # (auto) 0.01 K/uL (0-0.2); Basophils % (auto) 0.1 %; Hematocrit (blood only) 28.2 % (42-52); Hemoglobin 9.2 g/dL (14.0-18.0); Immature Granulocytes # (auto) 0.23 K/uL (0.00-0.02); Immature Granulocytes % (auto) 1.4 %; Lymphocytes # (auto) 0.74 K/uL (1.2-3.4); Lymphocytes % (auto) 4.5 %; Mean Corpuscular Hemoglobin 32.3 pg (25-34); Mean Corpuscular Hgb Conc 32.6 g/dL (32-36); Mean Corpuscular Volume 98.9 fL (80-100); Mean Platelet Volume 9.5 fL (7.4-10.4); Monocytes # (auto) 0.95 K/uL (0.11-0.59); Monocytes % (auto) 5.8 %; Neutrophils # (auto) 14.43 K/uL (1.4-6.5); Neutrophils % (auto) 88.2 %; Platelet Count 334 K/uL (130-400); RDW Coefficient of Variation 22.9 % (11.5-14.5); RDW Standard Deviation 73.9 fL (36.4-46.3); Red Blood Count 2.85 M/uL (4.7-6.1); White Blood Count 16.36 K/uL (4.8-10.8)
[2021-10-02 15:27] LABS: INR 1.5 (0.9-1.1); Prothrombin Time 14.6 Seconds (9.0-12.0)
[2021-10-02 15:45] LABS: Anisocytosis Present; Target Cells 2+
[2021-10-02 15:52] LABS: Alanine Aminotransferase 108 U/L (12-78); Albumin Globulin Ratio 0.4 (0.9-2); Albumin Level 1.9 gm/dl (3.4-5.0); Alkaline Phosphatase 353 U/L (45-117); Aspartate Aminotransferase 372 U/L (15-37); BUN Creatinine Ratio 23.7 (10-20); Bilirubin,Total 7.1 mg/dl (0.2-1); Blood Urea Nitrogen 71 mg/dl (7-18); Calcium 9.2 mg/dl (8.5-10.1); Carbon Dioxide 21 mmol/L (21-32); Chloride 114 mmol/L (98-107); Creatinine Clr Calc Pharmacy 16.3 ml/min; Est GFR (African American) 22.8 ml/min; Est GFR (Non-African American) 19.7 ml/min; Globulin 4.7 gm/dl (2.5-4.0); Glucose 64 mg/dl (70-99); Magnesium 2.6 mg/dl (1.8-2.4); Potassium 4.6 mmol/L (3.5-5.1); Sodium 151 mmol/L (136-145); Total Protein 6.6 gm/dl (6.4-8.2); Troponin I < 0.015 ng/ml (0-0.045)
[2021-10-02] MEDS ORDERED: ONDANSETRON INJ 2 MG/ML 2 ML VIAL IV STA (18:23)
[2021-10-02] MEDS ORDERED: D5W AND NSS 1,000 ML IV SCH (18:30)
[2021-10-02 18:53] LABS: Appearance Urine Cloudy (Clear); Bacteria Urine Automated Negative (Negative); Blood Urine Negative (Negative); Color Urine Dark Yellow; Epithelial Cell Urine Auto 20-30 /lpf (0-5); Glucose Urine UA Negative (Negative); Ketones Urine Trace (Negative); Leukocyte Esterase Urine Trace (Negative); Nitrite Urine Positive (Negative); Protein Urine 1+ (Negative); Specific Gravity Urine 1.018 (1.000-1.030); Urobilinogen Urine Negative (Negative)
[2021-10-02 19:03] LABS: Bilirubin Urine 2+ (Negative)
[2021-10-02 19:11] LABS: Amorphous Sediment Urine Present (None Prsent); RBC Urine Automated 0-4 /hpf (0-4)
[2021-10-02 19:12] LABS: Mucus Urine Present (None Prsent)
--- NOTE | 2021-10-02 20:50 | History & Physical Report ---
Date of Service October 02, 2021 Assessment & Plan (1) Colon cancer metastasized to liver: (2) Nausea and vomiting: (3) Weight loss: (4) Weakness: Plan: This is a 75yo M with a PMH of recently diagnosed colon cancer with metastasis to liver, CKD, history of CVA with residual hemiparesis, HTN who presents with increased weakness and difficulty ambulating at home. In setting of recent diagnosis of metastatic adenocarcinoma consistent with colonic primary Has not yet established with oncology Difficulty ambulating to kitchen and making food due to weakness, lives alone Consult [facility]ology of [facility] to be seen during admission Fall precautions, PT/OT evaluation, CM Starting IV fluids, clear liquids and advance diet as tolerated, nutrition consult, anti-emetics No abdominal pain, LFTs elevated in setting of known liver mets. Seen by GI on previous admission, recommended oncology. Repeat CMP tomorrow. Consider imaging of abdomen if nausea persists (5) Acute on chronic kidney failure: Plan: Cr initially elevated at 3 (baseline ~mid-high 1s) in setting of dehydration, poor PO intake Similar on previous admission, resolved with hydration Continue IV fluid resuscitation, daily BMP (6) UTI (urinary tract infection): Plan: UA abnormal, leukocytosis of 16. Starting rocephin. Follow urine cultures (7) HTN (hypertension): Plan: Continue diltiazem and lopressor with hold parameters DVT Ppx: SQ heparin Code status: FULL PCP: Shelly Monsalve Dispo: Admitted to med/surg Patient seen in collaboration with Dr. Pacheco. Please see addendum. Admission and Anticipated Discharge Date Admission Date: October 02, 2021 History of Present Illness Chief Complaint: nausea, weakness Primary Care Provider: Rajiv Monsalve DO This is a 75yo M with a PMH of recently diagnosed colon cancer with metastasis to liver, CKD, history of CVA with risidual hemiparesis, HTN who presents with increased weakness and difficulty ambulating at home. Has felt hungry but is too weak to ambulate to and from kitchen and get food. Is not had much of anything to eat in the past week. Symptoms have been worsening over the past 2- 3 weeks. Was hospitalized at the beginning of the month for similar symptoms an d diagnosed with colon cancer at that time. Pathology showed metastatic adenocarcinoma consistent with colonic primary. Has an appointment to establish with Dr. Troncoso of oncology group tomorrow but has not yet been seen and is not on any treatment. Lives alone with family in [place]. 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 Currently feeling generally weak and nauseated. Feels very hungry and willing to try clears. Did have one episode of bilious emesis during interview. Given Zofran. No fever, chills, chest pain, palpitations, shortness of breath, abdominal pain, dysuria, diarrhea constipation. Continue IV fluids, [facility] so he can be seen during admission. Fall precautions, PT and OT ordered. Allergies Allergy/AdvReac Type Severity Reaction Status Date / Time No Known Allergies Allergy Unknown Verified 10/02/21 16:21 Home Medications Medication Instructions Recorded Confirmed Type cholecalciferol (vitamin D3) 50 2,000 unit PO DAILY 09/10/21 10/02/21 History mcg (2,000 unit) capsule (Vitamin D3) diltiazem HCl 180 mg 360 mg PO DAILY 09/10/21 10/02/21 History capsule,extended release 24 hr metoprolol tartrate 25 mg tablet 12.5 mg PO BID 09/10/21 10/02/21 History simvastatin 20 mg tablet 20 mg PO DAILY 09/10/21 10/02/21 History calcitriol 0.5 mcg capsule 0.5 mcg PO DAILY 09/11/21 10/02/21 History Past Med/Surg History Medical History (Updated 10/02/21 @ 21:27 by Meredith Oneal PA-C) Anemia CKD (chronic kidney disease) Colon cancer metastasized to liver HTN (hypertension) Hyperlipidemia Hypertension Stroke Surgical History Hx of tonsillectomy Family History Other Heart disease Social History Smoking Status: Never smoker Do You Dip or Chew Tobacco: No; Hx Alcohol Use: No Hx Substance Use: No Communication Ability: Effective Clinical Documentation Consultant Required: No Beliefs That Will Affect Care: None Current Living Situation: Alone Current Living Situation Comment: Home Health assistance Feels Safe at Home: Yes Assistive Devices: Cane and Walker Assistive Devices Comment: wheelchair bound at this time Review of Systems Review of Systems: At least ten systems reviewed and negative except as noted in the HPI. Physical Exam Physical Exam: Please see Dr. Pacheco's addeundum for physical exam. Results & Data Results & Data ([facility]) Vital Signs (Past 12 Hours) Vital Signs Temp Pulse Pulse Resp BP BP Pulse Ox 10/02/21 19:08 80 20 113/62 100 10/02/21 17:00 88 20 122/69 100 10/02/21 16:07 89 20 131/73 100 10/02/21 16:00 14 131/73 100 10/02/21 15:09 88 18 100 10/02/21 15:01 90 16 113/66 100 10/02/21 14:01 94 H 12 119/69 100 10/02/21 13:58 92 H 20 100 10/02/21 13:21 36.5 C 94 H 20 111/65 100 Laboratory Results Short CBC 10/02/21 Range/Units 14:40 WBC 16.36 H (4.8-10.8) K/uL Hgb 9.2 L (14.0-18.0) g/dL Hct 28.2 L (42-52) % Plt Count 334 (130-400) K/uL BMP 10/02/21 14:40 Sodium 151 H Potassium 4.6 Chloride 114 H Carbon Dioxide 21 BUN 71 H Creatinine 3.00 H Glucose 64 L Calcium 9.2 Cardiac Enzymes 10/02/21 Range/Units 14:40 Troponin I < 0.015 (0-0.045) ng/ml Liver Function 10/02/21 Range/Units 14:40 Total Bilirubin 7.1 H (0.2-1) mg/dl AST 372 H (15-37) U/L ALT 108 H (12-78) U/L Alkaline Phosphatase 353 H (45-117) U/L Albumin 1.9 L (3.4-5.0) gm/dl Urine 10/02/21 Range/Units 18:34 Urine Color Dark Yellow Urine Appearance Cloudy A (Clear) Urine pH 5.0 (4.5-7.5) Ur Specific [place] 1.018 (1.000-1.030) Urine Protein 1+ H (Negative) Urine Glucose (UA) Negative (Negative) Diagnostic Findings Chest X-Ray 10/02/21 14:02 XR chest 1V portable CLINICAL HISTORY: weakness COMPARISON STUDY: Chest radiograph and chest CT September 10, 2021. FINDINGS: Levoscoliosis of the mid to upper thoracic spine is noted. Patient may be mildly rotated Lung volumes are normal. Lungs are clear. There is no pneumothorax or pleural effusion. Cardiac size is normal. Mediastinal contours are normal. There is no evidence for pulmonary edema. IMPRESSION: No acute cardiopulmonary findings. No change in appearance of the chest. ACT 112: Negative or not required by law. Electronically signed by: Conor Salinas M.D. 10/02/2021 2:31 PM Code Status & VTE Plan VTE Prophylaxis Plan VTE Prophylaxis will be ordered: Yes Supervising Physician Co-Signing Physician Notes Pt is a 75 y/o M with recent dx of metastatic colonic Adenocarcinoma (to the liver), CKD III, CVA with L sided weakness, HTN admitted for decreased PO intake, generalized weakness and N/V. Exam: In acute distress and cachetic Cardiac: normal S1/S2, no murmur Lungs: CTA Abd: ND, soft, NT MSK: No edema Psych: AAOx3 A/P: Elevated LFTs with increased Bili: -due to hx of Liver mets will get CT abd, MRCP and GI consult -will put on maintenance fluids - NPO after MN - will repeat CMP with direct bili tomorrow GEMMA with elevated Na+: -Likely 2/2 dehydration -started the pt on fluids - trend BMP more closely UTI: -UCx sent -will start the pt on ceftriaxone Colonic adenocarcinoma with Liver mets: -oncology consult Generalized weakness: -PT/OT Agree with A/P Meredith Oneal PA-C (1) Acute on chronic kidney failure Acute renal failure type: unspecified Chronic kidney disease stage: unspecified stage Qualified Code(s): N17.9 - Acute kidney failure, unspecified; N18.9 - Chronic kidney disease, unspecified
[2021-10-02] MEDS ORDERED: ACETAMINOPHEN 325 MG TAB PO PRN (20:52)
[2021-10-02] MEDS ORDERED: POLYETHYLENE (MIRALAX) 17 GM PACK PO PRN (20:52)
[2021-10-02] MEDS: cefTRIAXone SODIUM 1,000 MG in DEXTROSE 5% 50 ML IV SCH (22:22)
[2021-10-02] MEDS: HEPARIN SOD 5,000 UNIT/0.5 ML VIAL SQ SCH (22:24)
[2021-10-02] MEDS ORDERED: INFLUENZA VACCINE HIGH DOSE PF 65+ 0.7 ML SYR IM ONE (23:40)
[2021-10-02 23:44] LABS: BUN Creatinine Ratio 24.7 (10-20); Calcium 8.7 mg/dl (8.5-10.1); Creatinine Clr Calc Pharmacy 18.2 ml/min; Est GFR (African American) 25.1 ml/min; Est GFR (Non-African American) 21.7 ml/min; Potassium 4.6 mmol/L (3.5-5.1)
[2021-10-03 05:53] LABS: Hematocrit (blood only) 26.6 % (42-52); Hemoglobin 8.4 g/dL (14.0-18.0); Mean Corpuscular Hemoglobin 31.8 pg (25-34); Mean Corpuscular Hgb Conc 31.6 g/dL (32-36); Mean Corpuscular Volume 100.8 fL (80-100); Mean Platelet Volume 9.5 fL (7.4-10.4); Nucleated RBC # (auto) 0.04 K/uL (0-0); Nucleated RBC % (auto) 0.3 %; Platelet Count 300 K/uL (130-400); RDW Coefficient of Variation 23.6 % (11.5-14.5); RDW Standard Deviation 77.9 fL (36.4-46.3); Red Blood Count 2.64 M/uL (4.7-6.1); White Blood Count 15.62 K/uL (4.8-10.8)
[2021-10-03 06:33] LABS: Albumin Level 1.8 gm/dl (3.4-5.0); BUN Creatinine Ratio 23.5 (10-20); Bilirubin Direct 5.4 mg/dl (0-0.2); Calcium 9.1 mg/dl (8.5-10.1); Creatinine Clr Calc Pharmacy 17.2 ml/min; Est GFR (African American) 23.5 ml/min; Est GFR (Non-African American) 20.3 ml/min; Magnesium 2.5 mg/dl (1.8-2.4); Potassium 4.4 mmol/L (3.5-5.1)
[2021-10-03 06:41] LABS: Albumin Globulin Ratio 0.4 (0.9-2); Bilirubin,Total 6.2 mg/dl (0.2-1); Globulin 4.5 gm/dl (2.5-4.0); Total Protein 6.3 gm/dl (6.4-8.2)
[2021-10-03] MEDS ORDERED: D5W AND 1/2NSS 1,000 ML IV SCH (08:15)
--- NOTE | 2021-10-03 08:17 | CT Scan Report ---
CT OF THE ABDOMEN AND PELVIS WITHOUT CONTRAST CLINICAL HISTORY: elevated LFTs and bili, N/V COMPARISON STUDY: CT of the abdomen and pelvis September 10, 2021. TECHNIQUE: Axial images of the abdomen and pelvis were obtained without IV contrast. Images were revi ewed in the axial, sagittal, and coronal planes. Automated exposure control was utilized for the william dy. A dose lowering technique was utilized adhering to the principles of ALARA. FINDINGS: A 7 mm irregular linear density within the left lower lobe is noted. Evaluation of the abdo men and pelvis is suboptimal on this unenhanced examination. No pneumatosis, free air or portal venou s gas is present. Innumerable hepatic masses are again noted. Index left hepatic lobe mass measures 3 .6 cm. A hyperdense segment 6 hepatic lesion measures 2.8 cm. The liver is enlarged. Small amount of ascites is noted. This has increased. There is no evidence for a bowel obstruction. Unenhanced images of the spleen, adrenal glands, kidneys and pancreas are unremarkable. There is no hydronephrosis. No te is again made of a long segment ileal colonic intussusception. This was present on prior CT. Patho logic 1.9 x 1.3 cm ileocolic lymph node is present. There is nonspecific right thigh edema. Anasarca is present. No suspicious lesions are identified within the visualized skeletal structures. IMPRESSION: 1. Redemonstration of innumerable hepatic masses consistent with metastatic disease and a ileocolonic intussusception which raises the possibility of a primary colonic neoplasm as the lead point. 2. Small amount of ascites within the abdomen and pelvis. Anasarca. 3. Nonspecific right thigh edema. 4. Pathologic ileocolic lymph node. ACT 112: Negative or not required by law. Electronically signed by: Conor Salinas M.D. 10/03/2021 8:16 AM
[2021-10-03] MEDS ORDERED: dilTIAZem HCL 180 MG CAPCR PO SCH (09:00)
[2021-10-03] MEDS: METOPROLOL TARTRATE 25 MG TAB PO SCH ×2 (09:19→21:01)
[2021-10-03] MEDS: HEPARIN SOD 5,000 UNIT/0.5 ML VIAL SQ SCH ×2 (09:20→21:00)
--- NOTE | 2021-10-03 09:29 | Consultation Report ---
DATE OF SERVICE: 10/03/2021. REASON FOR CONSULTATION: Colon cancer with metastasis. HISTORY OF PRESENT ILLNESS: Mr. 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 He also has a medical history significant for CVA with left-sided hemiparesis, CKD stage III, and hypertension. He presented to the Emergency Department yesterday with progressively worsening fatigue and significant decline in performance status. On admission, he was noted to have conjugated hyperbilirubinemia and transaminitis. CBC also revealed leukocytosis, macrocytic anemia with urinalysis consistent with UTI. He was started on antibiotics for UTI and also placed on IV fluids for dehydration . Regarding colon cancer diagnosis, he had originally presented to the ED about 3 weeks ago with complaints of generalized weakness,weight loss and decreased appetite. CT abdomen and pelvis performed on 09/10/2021 had revealed evidence of ileocolic intussusception with mild surrounding infiltration and fluid concerning for colon mass as well as enlarged liver infiltrated by numerous low attenuation mass lesions suspicious for multifocal hepatic metastatic disease. CT chest also performed on 09/10/2021 revealed 4 mm indeterminate pulmonary nodule in the left lower lobe. Initially, the patient was supposed to have a colonoscopy. However, he could not tolerate bowel prep and so EGD/EUS with liver biopsy was performed on 09/12/2021. EGD was essentially normal. Upper endoscopic ultrasound also performed on 09/12/2021 revealed multiple metastatic lesions in the liver one of which was biopsied. Pathology from [facility] revealed MMR proficient metastatic adenocarcinoma consistent with colon primary. He was subsequently discharged home to follow up with Dr. Troncoso of [facility]. However,he presented a day prior to oncology appointment with worsening fatigue and declining performance status for which he was admitted. During my evaluation of him today, he complains of significant fatigue. He states that he has been unable to perform ADLs for several weeks now and has been fully dependent on his caregiver, which is a significant decline from his prior performance status. 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 He denies ever having a colonoscopy. PAST MEDICAL HISTORY: 1. CKD stage III. 2. Hypertension. 3. CVA with left-sided hemiparesis. 4. Hypertension. 5. Hyperlipidemia. 6. Colon cancer with liver metastasis. PAST SURGICAL HISTORY: Tonsillectomy. MEDICATIONS PRIOR TO ADMISSION: 1. Vitamin D3 2000 units p.o. daily. 2. Diltiazem 360 mg p.o. daily. 3. Metoprolol 12.5 mg p.o. b.i.d. 4. Simvastatin 20 mg p.o. daily. 5. Calcitriol 0.5 mcg p.o. daily. ALLERGIES: No known drug allergies. SOCIAL HISTORY: Denies smoking, alcohol and illicit drug use. FAMILY HISTORY: He denies any family history of malignancies. Denies any family history of colon cancer. REVIEW OF SYSTEMS: CONSTITUTIONAL: Positive for 30-pound weight loss over the past 6 months. Denies fever, chills, or night sweats. CARDIOVASCULAR: Denies chest pain, palpitations, dizziness. RESPIRATORY: Denies shortness of breath, chest pain, cough, or hemoptysis. GASTROINTESTINAL: He denies diarrhea, hematemesis, melena, dyspepsia. NEUROLOGIC: Positive for left-sided weakness. He denies headaches, dizziness. LYMPHATIC/HEMATOLOGIC: Negative for abnormal bleeding or new adenopathy. PHYSICAL EXAMINATION: VITAL SIGNS: Blood pressure 122/68, heart rate 88, respiratory rate 17, temperature 36.5 Celsius, O2 saturation 98% on room air. General: Cachectic, chronically ill looking gentleman in no obvios distress EYES: Icteric. ENT: External examination was negative for masses. RESPIRATORY: Lung sounds were generally clear bilaterally. CARDIOVASCULAR: Heart shows regular rate and rhythm without significant murmur. GASTROINTESTINAL: No palpable hepatosplenomegaly. ABDOMEN: Soft with normal bowel sounds. EXTREMITIES: Negative for edema, weakness on the left side. LABORATORY DATA: CBC significant for white cell count of 15.62, hemoglobin of 8.4, with hematocrit of 26.6 and MCV of 100.8, platelet count 300,000. Chemistry significant for sodium of 151, chloride 117, carbon dioxide 19, anion gap 15, BUN 69, and creatinine of 2.93. LFTs revealed total bilirubin of 6.2, direct bilirubin 5.8, AST 354, ALT 106, and alkaline phosphatase 326. IMAGING DATA: CT A/P on 10/02/2021 Impression: 1. Redemonstration of innumerable hepatic masses consistent with metastatic disease and ileocolonic intussusception, which raises possibility of a primary colonic neoplasm at the lead point. 2. Small amount of ascites within the abdomen and pelvis. Anasarca. 3. Nonspecific right thigh edema. 4. Pathologic ileocolic lymph node. IMPRESSION: 1. Adenocarcinoma of the colon with extensive liver metastasis. 2. History of cerebrovascular accident with residual left-sided weakness. 3. Acute kidney injury on chronic kidney disease. 4. Anemia. 5. Dehydration. 6. Urinary tract infection. A very unfortunate gentleman who was recently diagnosed with metastatic colon cancer, for which molecular testing is yet to be performed. He was scheduled to be seen by Dr. Troncoso of [facility] tomorrow; however, presented with worsening fatigue, declining performance status,conjugated hyperbilirubinemia , transaminitis acute kidney injury on chronic kidney disease and urinary tract infection . I discussed my thoughts with the patient. I explained to him that given his current performance status, I do not think he would be able to tolerate systemic therapy. If his performance status improves with IV fluids and treating UTI, he would be a candidate for palliative chemotherapy with treatments such as FOLFOX/ CAPOX with or without antibodies depending on molecular status. If performance status, however, does not improve, would need to consider hospice/supportive care. The patient was given the opportunity to ask questions, which he indicated were answered to his satisfaction. He indicated that his next of kin or his siblings are due to come in from [place] today or tomorrow. I will be happy to speak to his siblings if they have any questions. PLAN: 1. Agree with IV fluid hydration and treating underlying urinary tract infection. 2. Agree with G.I consult for possible stent placement given obstructive pattern with conjugated hyperbilirubinemia. 4. Will need testing for molecular status on tumor sample as well as outpatient PET scan 3. Follow up with Dr. Troncoso of [facility] on discharge Thank you for this consult. Oncology will follow while the patient is in the hospital. Please feel free to call if you have any further questions. Job ID: [id number] [facility]ON HOSPITALAmberly
--- NOTE | 2021-10-03 09:30 | Gastrointestinal Consultation ---
Date of Consultation October 03, 2021 Assessment & Plan (1) Colon cancer metastasized to liver: (2) Ileocolic intussusception: (3) Elevated LFTs: Pt is a 75 y/o male w colon ca metastatic to liver, who presented w weakness, n/v symptoms noted to have ARF, UTI, elevated LFTs. CT abd/pelvis showed liver masses consistent w mets, ileocolonic intussusception likely related to primary colon ca. MRCP w/o biliary ductal dilation thus not obstructed. He is tolerating CL diet this AM - Ceftriaxone IV for UTI - No indication for ERCP - Nephrology and Oncology consulted; appreciate recs - Symptomatic management with antiemetics prn - GI to sign off; pls recall prn Supervising Physician Co-Signing Physician Notes Attending attestation I have seen, examined this patient, and agree with the findings and above by our mid-level provider DINORA Patterson, with the following additions: - 75 yo presenting for failure to thrive, known metastatic cancer with significant liver involvement, but no signs of biliary obstruction. No role for biliary intervention - Proceed with oncology treatment History of Present Illness Reason for Consultation: N/V, elevated LFTs; hx of metastatic colon ca Requesting Physician: Dr. Whitley Woodruff Attending Physician: Dr. Jelani Levin History of Present Illness Pt is a 75 y/o male w hx of HTN, TIA, vertigo, metastatic colon ca to liver who presented yesterday w c/o weakness, n/v, weight loss of 20 lbs recently. He was just seen by Oncology in consultation this AM, hasn't started treatment for his ca yet. He denies associated fever, chills, CP, SOB, abd pain. He reports stools are a bit looser than baseline but no signs of rectal bleeding. Labs notable for worsening anemia Hgb 11 ->8, ARF (BUN/Cr 69/2.9), elevated LFTs: Tbili 6.2, AST 354, ALT 106, Alk phose 326, UTI. CXR unremarkable. CT abd/pelvis w innumerable liver masses consistent w metastatic disease, ileocolonic intussusception suspect primary colonic neoplasm, small amts of ascites in abd/pelvis, anasarca. MRCP wo biliary ductal dilation noted. Allergies Allergy/AdvReac Type Severity Reaction Status Date / Time No Known Allergies Allergy Unknown Verified 10/02/21 16:21 Home Medications Medication Instructions Recorded Confirmed Type cholecalciferol (vitamin D3) 50 2,000 unit PO DAILY 09/10/21 10/02/21 History mcg (2,000 unit) capsule (Vitamin D3) diltiazem HCl 180 mg 360 mg PO DAILY 09/10/21 10/02/21 History capsule,extended release 24 hr metoprolol tartrate 25 mg tablet 12.5 mg PO BID 09/10/21 10/02/21 History simvastatin 20 mg tablet 20 mg PO DAILY 09/10/21 10/02/21 History calcitriol 0.5 mcg capsule 0.5 mcg PO DAILY 09/11/21 10/02/21 History Patient History Medical History (Updated 10/03/21 @ 09:35 by DINORA Pandya) Anemia CKD (chronic kidney disease) Colon cancer metastasized to liver HTN (hypertension) Hyperlipidemia Hypertension Stroke Surgical History Hx of tonsillectomy Family History Other Heart disease Social History Smoking Status: Never smoker Do You Dip or Chew Tobacco: No; Hx Alcohol Use: No Hx Substance Use: No Communication Ability: Effective Cytopathology Technologist Required: No Beliefs That Will Affect Care: None Current Living Situation: Alone Current Living Situation Comment: Home Health assistance Feels Safe at Home: Yes Assistive Devices: None Assistive Devices Comment: wheelchair bound at this time Review of Systems Review of Systems: All systems reviewed & are unremarkable except as noted in HPI & below Physical Exam Constitutional: + thin, + frail appearing and comfortable Eyes: + scleral abnormality (icteric sclera) and PERRL ENMT: external ear and nose normal, oropharynx normal Respiratory: normal respiratory effort, lungs clear to auscultation Cardiovascular: RRR, no murmur, no edema Gastrointestinal (Abdomen): Large liver, non tender, BS hypoactive Skin: no rashes, warm and dry no jaundice Psychiatric: A+Ox3, euthymic affect Lymphatic: no lymphedema Results & Data ([facility]) Vital Signs (Past 12 Hours) Vital Signs Temp Pulse Pulse Pulse Resp BP BP 10/03/21 07:10 36.5 C 88 17 122/68 10/03/21 04:05 36.5 C 84 16 113/64 113/64 10/03/21 02:57 77 10/02/21 23:40 36.7 C 85 16 116/63 10/02/21 23:24 36.5 C 86 18 116/63 Pulse Ox 10/03/21 07:10 98 10/03/21 04:05 100 10/03/21 02:57 10/02/21 23:40 100 10/02/21 23:24 100
--- NOTE | 2021-10-03 09:48 | Magnetic Resonance Report ---
MRCP CLINICAL HISTORY: elevated bilirubin, known liver mets, eval for blockage TECHNIQUE: Utilizing a 1.5 Michelle magnet and dedicated coil, multiplanar, multiecho imaging of the [facility] abdomen was performed utilizing heavily T2 weighted pulsing sequences without IV contrast. This st udy could not be completed due to patient's inability to remain supine. COMPARISON STUDY: CT of the abdomen and pelvis October 02, 2021. FINDINGS: This study could not be completed due to patient's inability to remain supine. Trace right pleural effusion is noted. Innumerable hepatic lesions are noted. These measure up to approximately 5 .7 cm. The liver is enlarged. No intra or extra hepatic biliary ductal dilatation is identified. Sens itivity for detection of common bile duct calculi is diminished on this exam. A small amount of ascit es is noted. Unenhanced images of the spleen, adrenal glands, kidneys and pancreas are grossly unrema rkable. The ileocolonic intussusception shown on CT is partially imaged on this examination. IMPRESSION: 1. Innumerable hepatic masses consistent with metastatic disease. 2. Incomplete exam, as described above. However, no biliary ductal dilatation. 3. Small amount of ascites. 4. Partially visualized ileocolonic intussusception, better depicted on CT of October 02, 2021. ACT 112: Negative or not required by law. Electronically signed by: Conor Salinas M.D. 10/03/2021 9:46 AM
[2021-10-03 14:38] LABS: BUN Creatinine Ratio 21.3 (10-20); Calcium 9.1 mg/dl (8.5-10.1); Creatinine Clr Calc Pharmacy 15.7 ml/min; Est GFR (African American) 21.4 ml/min; Est GFR (Non-African American) 18.4 ml/min; Potassium 4.2 mmol/L (3.5-5.1)
--- NOTE | 2021-10-03 17:52 | Hospitalist Progress Note ---
Date of Service October 03, 2021 Assessment & Plan (1) Colon cancer metastasized to liver: (2) Nausea and vomiting: (3) Weight loss: (4) Weakness: Plan: 75yo M with a PMH of recently diagnosed colon cancer with metastasis to liver, CKD, history of CVA with residual hemiparesis, HTN who presents with increased weakness and difficulty ambulating at home. In setting of recent diagnosis of metastatic adenocarcinoma consistent with colonic primary Has not yet established with oncology prior to admission Difficulty ambulating to kitchen and making food due to weakness, lives alone GI and oncologist recommendations noted Elevated LFTs likely due to liver mets. Report of bloody bowel movement per RN. Monitor hemoglobin. 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 Follow urine cultures (7) HTN (hypertension): Plan: Continue diltiazem and lopressor with hold parameters DVT Ppx: SQ heparin Code status: FULL PCP: Shelly Monsalve Admission and Anticipated Discharge Date Admission Date: October 02, 2021 Subjective 75-year-old man with recently diagnosed colon cancer with mets to the liver, CKD, CVA with residual hemiparesis, hypertension who presented with increasing weakness and difficulty ambulating. Was noted to have elevated LFTs on presentation, acute on chronic kidney failure, possible UTI. Patient seen and examined. Reports extreme fatigue. Denies any chest pain, shortness of breath, palpitations Denies any abdominal pain, nausea, vomiting. Per RN patient has been having frequent bowel movement today occasionally mixed with blood. Patient does not recall bloody BM at home. Denied any dysuria freq urgency hematuria Reports he has lost over 20 pounds in the past 2 months. Physical Exam Constitutional: + ill appearing, + well hydrated, + thin and + malnourished; no acute distress Eyes: PERRL, conjunctivae normal, anicteric sclerae ENMT: external ear and nose normal, oropharynx normal Respiratory: normal respiratory effort, lungs clear to auscultation Cardiovascular: RRR, S1-S2 Gastrointestinal (Abdomen): normal bowel sounds, soft, nontender, no hepatosplenomegaly Musculoskeletal: Trace pedal edema bilaterally Neurologic: PERRL, EOMI, accommodation nl, no face palsy, no dysarthria Psychiatric: A+Ox3, euthymic affect Results & Data Results & Data ([facility]) Vital Signs (Past 12 Hours) Vital Signs Temp Pulse Pulse Resp BP Pulse Ox 10/03/21 16:51 60 10/03/21 16:14 36.5 C 60 20 101/52 L 99 10/03/21 15:55 100 10/03/21 11:00 84 18 109/68 100 10/03/21 10:16 87 10/03/21 07:10 36.5 C 88 17 122/68 98 Laboratory Results Abnormal lab results 10/02/21 10/02/21 10/03/21 Range/Units 18:34 22:55 05:28 WBC 15.62 H (4.8-10.8) K/uL RBC 2.64 L (4.7-6.1) M/uL Hgb 8.4 L (14.0-18.0) g/dL Hct 26.6 L (42-52) % MCV 100.8 H (80-100) fL MCHC 31.6 L (32-36) g/dL RDW Std Deviation 77.9 H (36.4-46.3) fL RDW Coeff of Cliff 23.6 H (11.5-14.5) % Absolute Nucleated RBC 0.04 H (0-0) K/uL Sodium 152 H (136-145) mmol/L Chloride 117 H (98-107) mmol/L Carbon Dioxide 20 L (21-32) mmol/L Anion Gap 15.0 H (3-11) BUN 69 H (7-18) mg/dl Creatinine 2.77 H (0.6-1.4) mg/dl BUN/Creatinine Ratio 24.7 H (10-20) Glucose 105 H (70-99) mg/dl Magnesium (1.8-2.4) mg/dl Total Bilirubin (0.2-1) mg/dl Direct Bilirubin (0-0.2) mg/dl AST (15-37) U/L ALT (12-78) U/L Alkaline Phosphatase (45-117) U/L Total Protein (6.4-8.2) gm/dl Albumin (3.4-5.0) gm/dl Globulin (2.5-4.0) gm/dl Albumin/Globulin Ratio (0.9-2) Urine Appearance Cloudy A (Clear) Urine Protein 1+ H (Negative) Urine Ketones Trace H (Negative) Urine Nitrite Positive A (Negative) Urine Bilirubin 2+ H (Negative) Ur Leukocyte Esterase Trace H (Negative) U Hyaline Cast (Auto) 10-30 H (0-5) /lpf U Epithel Cells (Auto) 20-30 H (0-5) /lpf Amorphous Sediment Present A (None Prsent) WBC Casts 1-5 H (0) /lpf Urine Mucus Present A (None Prsent) 10/03/21 10/03/21 Range/Units 05:28 13:51 WBC (4.8-10.8) K/uL RBC (4.7-6.1) M/uL Hgb (14.0-18.0) g/dL Hct (42-52) % MCV (80-100) fL MCHC (32-36) g/dL RDW Std Deviation (36.4-46.3) fL RDW Coeff of Cliff (11.5-14.5) % Absolute Nucleated RBC (0-0) K/uL Sodium 151 H 153 H (136-145) mmol/L Chloride 117 H 119 H (98-107) mmol/L Carbon Dioxide 19 L 18 L (21-32) mmol/L Anion Gap 15.0 H 16.0 H (3-11) BUN 69 H 67 H (7-18) mg/dl Creatinine 2.93 H 3.17 H (0.6-1.4) mg/dl BUN/Creatinine Ratio 23.5 H 21.3 H (10-20) Glucose 145 H 160 H (70-99) mg/dl Magnesium 2.5 H (1.8-2.4) mg/dl Total Bilirubin 6.2 H (0.2-1) mg/dl Direct Bilirubin 5.4 H (0-0.2) mg/dl AST 354 H (15-37) U/L ALT 106 H (12-78) U/L Alkaline Phosphatase 326 H (45-117) U/L Total Protein 6.3 L (6.4-8.2) gm/dl Albumin 1.8 L (3.4-5.0) gm/dl Globulin 4.5 H (2.5-4.0) gm/dl Albumin/Globulin Ratio 0.4 L (0.9-2) Urine Appearance (Clear) Urine Protein (Negative) Urine Ketones (Negative) Urine Nitrite (Negative) Urine Bilirubin (Negative) Ur Leukocyte Esterase (Negative) U Hyaline Cast (Auto) (0-5) /lpf U Epithel Cells (Auto) (0-5) /lpf Amorphous Sediment (None Prsent) WBC Casts (0) /lpf Urine Mucus (None Prsent)
[2021-10-03] MEDS ORDERED: DEXTROSE 5% 1,000 ML IV SCH (18:00)
--- NOTE | 2021-10-03 18:07 | Nephrology Consultation ---
Date of Consultation October 03, 2021 Assessment & Plan (1) Acute on chronic kidney failure: nonoliguric GEMMA on CKD3 stage 1. baseline creatinine 1.9. Presenting creatinine 3, worsened to 3.2 this afternoon despite supportive care. Also with electrolyte issues including hypernatremia (worsening), combined anion gap and nonanion gap metabolic acidosis, likely from starvation and diarrhea respectively. His urine sediment is concerning for interstitial nephritis or potentially even a glomerular process though he is not a renal bx candidate. His fluid resuscitation may become challenging given his malnutrition and liver disease> monitor for overload -changed D5W to D5W w/ 50 mEq /L sodium bicarb at 100 mL hourly; he was on D51/2 NS for most of afternoon -q 12h-q24h bmp -ABG would improve diagnosis though not necessarily supervisor records change -not a dialysis candidate should the need arise given cancer mets and liver dysfunction (2) Abnormal urine findings: urine study more consistent with inflammation, tubular dysfunction, and liver disease than infection, though urine cx is in process still and pt being treated for UTI (3) Confusion: -unremarkable head CT 09/10; defer to primary service; could be from infection though UTI not particularly likely here (4) Colon cancer metastasized to liver: w/ liver, lung mets and significant malnutrition, BMI 16 -agree w/ palliative consultation; oncology recs noted -may explain diarrhea and bleeding -monitor phosphorus daily and for refeeding syndrome (5) HTN (hypertension): relative hypotension -continue IVF -will lower cardizem dose for AM to 240 mg daily from 360 -cont BB History of Present Illness Reason for Consultation: GEMMA on CKD, metabolic acidosis Requesting Physician: Dr Woodruff Attending Physician: Whitley Woodruff MD History of Present Illness 75 y/o M w/ recent metastatic colon cancer dx and CKD 3 was admitted for worsening weakness, inability to care for self at home even w/ caregiver support. 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 He follows in our CKD clinic; baseline creatinine 1.9. Colon cancer diagnosed earlier this month after presenting to ER w/ generalized weakness, decreased po, weight loss and found to have ileocolonic insussception and other findings suggestive of colon mass w/ innumerable liver lesions suspicous for metatstatic disease and with pulmonary nodule LLL of indeterminate clinical significance. [place] [facility] [place] but came here yesterday for reasons above. His presenting labs were remarkable from renal standpoint for Na 151, K 4.6, C02 114, bicarb 21, BUN 71, creat 3. He was started on D5NS initially, changed this AM to D5 1/2NS this AM. Admitting team had concern for UTI w/ abnormal UA on admission and WBC 16K: he was started on empiric rocephin pending urine cultures. Also w/ elevated LFTs for which GI has been consulted and recommends conservative care. I evaluated the pt at approximately 0930 this AM: he was fairly confused, stating to me that he had had a renal transplant from his (no transplant on imaging or in hx), that he lived w/ his and daughter (he lives alone) and that they were on their way to hospital to get him to take him home (no local family in contact w/ pt), and that there was "sawdust coming through the ceiling vents." He did endorse fairly significant diarrhea, w/ 4 BM daily prior to admission > he currently has had 9 BM through the course of the day including some with blood. No pain specifically, including no abdominal pain; no dyspnea, no n/v; no new or worsening voiding concerns. Allergies Allergy/AdvReac Type Severity Reaction Status Date / Time No Known Allergies Allergy Unknown Verified 10/02/21 16:21 Home Medications Medication Instructions Recorded Confirmed Type cholecalciferol (vitamin D3) 50 2,000 unit PO DAILY 09/10/21 10/02/21 History mcg (2,000 unit) capsule (Vitamin D3) diltiazem HCl 180 mg 360 mg PO DAILY 09/10/21 10/02/21 History capsule,extended release 24 hr metoprolol tartrate 25 mg tablet 12.5 mg PO BID 09/10/21 10/02/21 History simvastatin 20 mg tablet 20 mg PO DAILY 09/10/21 10/02/21 History calcitriol 0.5 mcg capsule 0.5 mcg PO DAILY 09/11/21 10/02/21 History Patient History Medical History (Updated 10/03/21 @ 18:56 by Anusha Bullard MD, PhD) Anemia CKD (chronic kidney disease) Colon cancer metastasized to liver HTN (hypertension) Hyperlipidemia Hypertension Stroke Surgical History Hx of tonsillectomy Family History Other Heart disease Social History Smoking Status: Never smoker Do You Dip or Chew Tobacco: No; Hx Alcohol Use: No Hx Substance Use: No Communication Ability: Effective Environmental Officer Required: No Beliefs That Will Affect Care: None marital status: Current Living Situation: Alone Current Living Situation Comment: Home Health assistance How many Children do You have: 1 Feels Safe at Home: Yes Assistive Devices: Cane and Wheelchair Assistive Devices Comment: wheelchair bound at this time Review of Systems Review of Systems: Unobtainable due to cognitive status Physical Exam Constitutional: well developed, + cachectic, + altered mental status and cooperative; no acute distress Eyes: EOM intact bilaterally ENMT: Ears: no external ear abnormality Nose: no external nose abnormality Mouth: + dry oral mucous membranes Neck: no nuchal rigidity Respiratory: normal respiratory effort Auscultation: + diminished lung sounds Cardiovascular: RRR, no murmur, no edema Gastrointestinal (Abdomen): Inspection/Auscultation: normal bowel sounds Percussion/Palpation: abdomen soft; abdomen nontender Musculoskeletal: Extremities: strength 5/5 throughout Skin: no rashes, warm and dry Neurologic: peñaloza, fluent speech, no tremor Results & Data ([facility]) Vital Signs (Past 12 Hours) Vital Signs Temp Pulse Pulse Resp BP Pulse Ox 10/03/21 16:51 60 10/03/21 16:14 36.5 C 60 20 101/52 L 99 10/03/21 15:55 100 10/03/21 11:00 84 18 109/68 100 10/03/21 10:16 87 10/03/21 07:10 36.5 C 88 17 122/68 98 Laboratory Results 10/03/21 18:06 10/03/21 13:51 UA 10/02 Dark yellow cloudy urine pH 5, 1018; 1+ protein, trace LE/ketones, positive nitrites, 2+ bilirubin, 20-30 epi's/LPF; no bacteria; 1-5 WBC casts/LPF Diagnostic Findings CT abd/pelvis FINDINGS: A 7 mm irregular linear density within the left lower lobe is noted. Evaluation of the abdomen and pelvis is suboptimal on this unenhanced examination. No pneumatosis, free air or portal venous gas is present. Innumerable hepatic masses are again noted. Index left hepatic lobe mass measures 3.6 cm. A hyperdense segment 6 hepatic lesion measures 2.8 cm. The liver is enlarged. Small amount of ascites is noted. This has increased. There is no evidence for a bowel obstruction. Unenhanced images of the spleen, adrenal glands, kidneys and pancreas are unremarkable. There is no hydronephrosis. Note is again made of a long segment ileal colonic intussusception. This was present on prior CT. Pathologic 1.9 x 1.3 cm ileocolic lymph node is present. There is nonspecific right thigh edema. Anasarca is present. No suspicious lesions are identified within the visualized skeletal structures. IMPRESSION: 1. Redemonstration of innumerable hepatic masses consistent with metastatic disease and a ileocolonic intussusception which raises the possibility of a primary colonic neoplasm as the lead point. 2. Small amount of ascites within the abdomen and pelvis. Anasarca. 3. Nonspecific right thigh edema. 4. Pathologic ileocolic lymph node. cXR no acute process
[2021-10-03 18:16] LABS: Hematocrit (blood only) 29.6 % (42-52); Mean Corpuscular Hemoglobin 31.4 pg (25-34); Mean Corpuscular Volume 103.1 fL (80-100); Mean Platelet Volume 9.8 fL (7.4-10.4); Nucleated RBC # (auto) 0.07 K/uL (0-0); Nucleated RBC % (auto) 0.4 %; Platelet Count 284 K/uL (130-400); RDW Coefficient of Variation 23.8 % (11.5-14.5); RDW Standard Deviation 80.8 fL (36.4-46.3); Red Blood Count 2.87 M/uL (4.7-6.1); White Blood Count 16.67 K/uL (4.8-10.8)
[2021-10-03 18:19] LABS: Mean Corpuscular Hgb Conc 30.4 g/dL (32-36)
[2021-10-03] MEDS: SODIUM BICARBONATE 8.4% 50 MEQ in DEXTROSE 5% 1,000 ML IV SCH (19:34)
[2021-10-03 22:44] LABS: BUN Creatinine Ratio 22.2 (10-20); Calcium 8.9 mg/dl (8.5-10.1); Creatinine Clr Calc Pharmacy 17.3 ml/min; Est GFR (African American) 24.1 ml/min; Est GFR (Non-African American) 20.8 ml/min; Potassium 3.6 mmol/L (3.5-5.1)
[2021-10-03] MEDS: cefTRIAXone SODIUM 1,000 MG in DEXTROSE 5% 50 ML IV SCH (23:12)
[2021-10-04] MEDS ORDERED: POTASSIUM CHLORIDE CRTAB 20 MEQ TABCR PO STA (03:50)
[2021-10-04 05:03] LABS: Hematocrit (blood only) 25.9 % (42-52); Hemoglobin 8.2 g/dL (14.0-18.0); Mean Corpuscular Hemoglobin 31.9 pg (25-34); Mean Corpuscular Hgb Conc 31.7 g/dL (32-36); Mean Corpuscular Volume 100.8 fL (80-100); Mean Platelet Volume 9.5 fL (7.4-10.4); Nucleated RBC # (auto) 0.05 K/uL (0-0); Nucleated RBC % (auto) 0.3 %; Platelet Count 234 K/uL (130-400); RDW Coefficient of Variation 23.5 % (11.5-14.5); RDW Standard Deviation 80.2 fL (36.4-46.3); Red Blood Count 2.57 M/uL (4.7-6.1); White Blood Count 13.89 K/uL (4.8-10.8)
[2021-10-04] MEDS: SODIUM BICARBONATE 8.4% 50 MEQ in DEXTROSE 5% 1,000 ML IV SCH ×2 (05:12→15:35)
[2021-10-04 05:37] LABS: Albumin Level 1.6 gm/dl (3.4-5.0); BUN Creatinine Ratio 21.8 (10-20); Calcium 9.2 mg/dl (8.5-10.1); Creatinine Clr Calc Pharmacy 18.5 ml/min; Est GFR (African American) 26.2 ml/min; Est GFR (Non-African American) 22.6 ml/min; Magnesium 2.2 mg/dl (1.8-2.4); Potassium 3.7 mmol/L (3.5-5.1)
[2021-10-04 05:40] LABS: Albumin Globulin Ratio 0.4 (0.9-2); Bilirubin,Total 5.7 mg/dl (0.2-1); Globulin 4.4 gm/dl (2.5-4.0); Phosphorus 2.5 mg/dl (2.5-4.9)
--- NOTE | 2021-10-04 08:53 | Nephrology Progress Note ---
Date of Service October 04, 2021 Assessment & Plan (1) Acute on chronic kidney failure: Plan: nonoliguric GEMMA on CKD3, stage 1. baseline creatinine 1.9. Presenting creatinine 3, peak 3.2 on 10/03, improved to 2.7 this am w/ supportive care. Also with electrolyte issues including hypernatremia (improving), combined anion gap and nonanion gap metabolic acidosis, likely from starvation and diarrhea respectively. His urine sediment is concerning for interstitial nephritis or potentially even a glomerular process though he is not a renal bx candidate. His fluid resuscitation may become challenging given his malnutrition and liver disease> monitor for overload -cont D5W w/ 50 mEq /L sodium bicarb at 100 mL hourly -q 12h-q24h bmp -ABG would improve diagnosis though not necessarily exchange operator -not a dialysis candidate should the need arise given cancer mets and liver dysfunction; I have not discussed this with him (2) Abnormal urine findings: Plan: urine study more consistent with inflammation, tubular dysfunction, and liver disease than infection, though urine cx is in process still and pt being treated for UTI (3) Colon cancer metastasized to liver: Plan: w/ liver, lung mets and significant malnutrition, BMI 16 -agree w/ obtaining palliative consultation; oncology recs noted -may explain diarrhea and bleeding; per RN he was passing jelly like stools w/ blood until today with stephane colored stool -monitor phosphorus daily and for refeeding syndrome > phos ok as are Ca and mag, so no evidence so far (4) HTN (hypertension): Plan: relative hypotension -continue IVF -agree w/ holding cardizem -cont BB w/ hold parameters Admission and Anticipated Discharge Date Admission Date: October 02, 2021 Subjective no c/o N or sob. frequent bm; not oliguric/some condom cath malfnxn. minimal appetite, no N. Review of Systems Review of Systems: All systems reviewed & are unremarkable except as noted in Subjective Physical Exam Constitutional: well developed, + cachectic and cooperative; no acute distress Eyes: EOM intact bilaterally ENMT: Ears: no external ear abnormality Nose: no external nose abnormality Mouth: + dry oral mucous membranes Neck: no nuchal rigidity Respiratory: normal respiratory effort Auscultation: + diminished lung sounds Cardiovascular: Rate/Rhythm: regular rate and regular rhythm Heart Sounds: normal S1 and normal S2 Extremities: + edema (2+ pedal L >> R) Gastrointestinal (Abdomen): Inspection/Auscultation: normal bowel sounds Percussion/Palpation: abdomen soft and + hepatosplenomegaly; abdomen nontender and no guarding Musculoskeletal: Extremities: strength 5/5 throughout Skin: no rashes, warm and dry Neurologic: fluent speech, L hemplegia/strictures/contractures Psychiatric: Orientation: alert and oriented x 3 [facility] & [facility] ([facility]) Vital Signs (Past 12 Hours) Vital Signs Temp Pulse Pulse Resp BP Pulse Ox 10/04/21 03:38 36.4 C L 65 14 94/48 L 99 10/04/21 00:09 36.6 C 65 14 100/51 L 95 10/04/21 00:00 63 10/03/21 20:57 57 L 99/51 L Laboratory Results 10/04/21 04:41 10/04/21 04:41
[2021-10-04] MEDS ORDERED: dilTIAZem HCL 240 MG CAPCR PO SCH (09:00)
[2021-10-04] MEDS: HEPARIN SOD 5,000 UNIT/0.5 ML VIAL SQ SCH ×2 (09:40→21:32)
--- NOTE | 2021-10-04 09:59 | Cardiology Consultation ---
Date of Consultation October 04, 2021 Assessment & Plan (1) Colon cancer metastasized to liver: (2) Weakness: (3) Acute on chronic kidney failure: (4) Dehydration, severe: (5) Asystole: The patient has had no asystole or heart pauses since he has had fluid hydration and improvement in his electrolytes and renal function. He is also had his diltiazem and metoprolol held. I would continue to hold these medications for now. I think his cardiac arrhythmias are multifactorial due to dehydration and electrolyte abnormalities. I do not believe any additional cardiac testing is indicated at this time. History of Present Illness Attending Physician: Whitley Woodruff MD History of Present Illness This is a 75-year-old male patient with a recent diagnosis of metastatic colon cancer. He was admitted with malnutrition, dehydration, electrolyte abnormalities and acute on chronic renal failure. He has no prior history of heart disease but does tell me that in 2002 he had a stroke. No other events following. He has no cardiac complaints today. Through the night he had several pauses on the telemetry and we have been asked to see him in regard to those arrhythmias. I reviewed the telemetry myself. The would appear to be related to sinus pauses or asystole. I see no tachyarrhythmias. He has no prior history of atrial fibrillation or other arrhythmias. His metoprolol and diltiazem are on hold and he has had no significant pauses for the past several hours after IV hydration and improvement in his renal function and electrolytes. He has no ongoing cardiac complaints. Allergies Allergy/AdvReac Type Severity Reaction Status Date / Time No Known Allergies Allergy Unknown Verified 10/02/21 16:21 Home Medications Medication Instructions Recorded Confirmed Type cholecalciferol (vitamin D3) 50 2,000 unit PO DAILY 09/10/21 10/02/21 History mcg (2,000 unit) capsule (Vitamin D3) diltiazem HCl 180 mg 360 mg PO DAILY 09/10/21 10/02/21 History capsule,extended release 24 hr metoprolol tartrate 25 mg tablet 12.5 mg PO BID 09/10/21 10/02/21 History simvastatin 20 mg tablet 20 mg PO DAILY 09/10/21 10/02/21 History calcitriol 0.5 mcg capsule 0.5 mcg PO DAILY 09/11/21 10/02/21 History Patient History Medical History Anemia CKD (chronic kidney disease) Colon cancer metastasized to liver HTN (hypertension) Hyperlipidemia Hypertension Stroke Surgical History Hx of tonsillectomy Family History Other Heart disease Social History Smoking Status: Never smoker Do You Dip or Chew Tobacco: No; Hx Alcohol Use: No Hx Substance Use: No Communication Ability: Effective Spindle Tester Required: No Beliefs That Will Affect Care: None marital status: Current Living Situation: Alone Current Living Situation Comment: Home Health assistance How many Children do You have: 1 Feels Safe at Home: Yes Assistive Devices: Walker Assistive Devices Comment: wheelchair bound at this time Review of Systems Review of Systems: Review of Systems: See HPI for pertinent positives. All other 10 point review of systems are negative. Physical Exam Physical Exam: General: no acute distress and stated age Head: normocephalic, no masses, lesions, tenderness or abnormalities Eyes: conjunctiva are pink and non-injected, sclera clear Neck: supple, no adenopathy, no bruits, normal jugular venous pulse, no hepatojugular reflux Chest: normal shape and normal respiratory effort Lungs: clear to auscultation and percussion Cardiac Exam: - regular rate & rhythm, no murmurs gallops or rubs - normal S1, normal S2 Pulses: 2(+) throughout Abdomen: abdomen soft, non-tender, no abnormal masses and no hepatosplenomegaly Musculoskeletal: no gait disturbance, no joint inflammation, no deforming arthritis Extremities: no edema and no cyanosis Neuro: grossly normal exam Results & Data ([facility]) Vital Signs (Past 12 Hours) Vital Signs Temp Pulse Pulse Resp BP Pulse Ox 10/04/21 03:38 36.4 C L 65 14 94/48 L 99 10/04/21 00:09 36.6 C 65 14 100/51 L 95 10/04/21 00:00 63 Laboratory Results Laboratory Results - last 24 hr 10/03/21 10/03/21 10/03/21 13:51 18:06 22:14 WBC 16.67 H RBC 2.87 L Hgb 9.0 L Hct 29.6 L MCV 103.1 H MCH 31.4 MCHC 30.4 L RDW Std Deviation 80.8 H RDW Coeff of Cliff 23.8 H Plt Count 284 MPV 9.8 Absolute Nucleated RBC 0.07 H Nucleated RBC % (auto) 0.4 Sodium 153 H 152 H Potassium 4.2 3.6 Chloride 119 H 117 H Carbon Dioxide 18 L 17 L Anion Gap 16.0 H 18.0 H BUN 67 H 64 H Creatinine 3.17 H 2.87 H D Est Cr Clr Drug Dosing 15.7 17.3 Est GFR ( Amer) 21.4 24.1 Est GFR (Non-Af Amer) 18.4 20.8 BUN/Creatinine Ratio 21.3 H 22.2 H Glucose 160 H 189 H Calcium 9.1 8.9 Phosphorus Magnesium Total Bilirubin AST ALT Alkaline Phosphatase Total Protein Albumin Globulin Albumin/Globulin Ratio Hepatitis C Ab Screen 10/04/21 10/04/21 10/04/21 04:41 04:41 04:41 WBC 13.89 H RBC 2.57 L Hgb 8.2 L Hct 25.9 L MCV 100.8 H MCH 31.9 MCHC 31.7 L RDW Std Deviation 80.2 H RDW Coeff of Cliff 23.5 H Plt Count 234 MPV 9.5 Absolute Nucleated RBC 0.05 H Nucleated RBC % (auto) 0.3 Sodium 147 H Potassium 3.7 Chloride 114 H Carbon Dioxide 19 L Anion Gap 14.0 H BUN 58 H Creatinine 2.68 H Est Cr Clr Drug Dosing 18.5 Est GFR ( Amer) 26.2 Est GFR (Non-Af Amer) 22.6 BUN/Creatinine Ratio 21.8 H Glucose 147 H Calcium 9.2 Phosphorus 2.5 Magnesium 2.2 Total Bilirubin 5.7 H AST 499 H ALT 124 H Alkaline Phosphatase 299 H Total Protein 6.0 L Albumin 1.6 L Globulin 4.4 H Albumin/Globulin Ratio 0.4 L Hepatitis C Ab Screen Pending Medications Administered Current Inpatient Medications Acetaminophen (Acetaminophen 325 Mg Tab) 650 mg PO Q4H PRN PRN Reason: pain/fever Stop: 11/01/21 20:51 Diltiazem HCl (Diltiazem Hcl 240 Mg Capcr) 240 mg PO QAM [facility] Stop: 11/03/21 08:59 Heparin Sodium (Porcine) (Heparin Sod 5,000 Unit/0.5 Ml Vial) 5,000 units SQ Q12 [facility] Stop: 11/01/21 20:59 Last Admin: 10/04/21 09:40 Dose: 5,000 units Documented by: Ceftriaxone Sodium 1,000 mg/ (Dextrose) 50 mls @ 100 mls/hr IV Q24H [facility]; Protocol Stop: 10/12/21 21:59 Last Infusion: 10/04/21 00:09 Dose: Infused Documented by: Sodium Bicarbonate 50 meq/ (Dextrose) 1,050 mls @ 100 mls/hr IV .[id number] [facility] Stop: 11/02/21 18:14 Last Admin: 10/04/21 05:12 Dose: 100 mls/hr Documented by: Metoprolol Tartrate (Metoprolol Tartrate 25 Mg Tab) 12.5 mg PO BID [facility] Stop: 11/02/21 08:59 Last Admin: 10/03/21 21:01 Dose: Not Given Documented by: Ondansetron HCl (Ondansetron Inj 2 Mg/Ml 2 Ml Vial) 4 mg IV Q6H PRN PRN Reason: Nausea Stop: 11/01/21 20:51 Polyethylene Glycol (Polyethylene (Miralax) 17 Gm Pack) 17 gm PO DAILY PRN PRN Reason: Constipation Stop: 11/01/21 20:51
--- NOTE | 2021-10-04 14:11 | Hospitalist Progress Note ---
Date of Service October 04, 2021 Assessment & Plan (1) Colon cancer metastasized to liver: (2) Nausea and vomiting: (3) Severe malnutrition: (4) Weight loss: (5) Weakness: Plan: 75yo M with a PMH of recently diagnosed colon cancer with metastasis to liver, CKD, history of CVA with residual hemiparesis, HTN who presents with increased weakness and difficulty ambulating at home. In setting of recent diagnosis of metastatic adenocarcinoma consistent with colonic primary Has not yet established with oncology prior to admission Difficulty ambulating to kitchen and making food due to weakness, lives alone GI and oncologist recommendations noted Elevated LFTs likely due to liver mets. Hb stable in 8s Fall precautions PT/OT evaluation, CM on board Palliative care consult for goals of care Nutrition evaluation noted Advance diet as tolreated Monitor for refeeding syndrome (6) Acute on chronic kidney failure: Plan: Cr initially elevated at 3 (baseline ~mid-high 1s) in setting of dehydration, poor PO intake Also has hypernatremia, hyperchloremia, elevated AGAP Pan Shaker recommendations appreciated Continue bicarb drip Na improving slowly Continue to monitor Monitor urine output (7) UTI (urinary tract infection): Plan: UA abnormal, leukocytosis of 16 on admission Denied urinary symptoms Urine culture reports 3 diff organism Has got 3 doses of ceftriaxone Will stop for now and monitor (8) HTN (hypertension): Plan: Pauses noted on monitor overnight Also BP running low normal Stop diltiazem and metoprolol for now Nuts And Bolts Assembler recs noted DVT Ppx: SQ heparin Code status: FULL PCP: [email or web address] Admission and Anticipated Discharge Date Admission Date: October 02, 2021 Subjective 75-year-old man with recently diagnosed colon cancer with mets to the liver, CKD, CVA with residual hemiparesis, hypertension who presented with increasing weakness and difficulty ambulating. Was noted to have acute on chronic kidney failure, FTT, malnutrition Patient seen and examined. Still reports fatigue Denies any chest pain, shortness of breath, palpitations Denies any abdominal pain, nausea, vomiting. Per RN, BM is stephane colored. No blood in it Had some sinus pauses overnight on tele Physical Exam Constitutional: + ill appearing, + well hydrated, + thin and + malnourished; no acute distress Eyes: PERRL, conjunctivae normal, anicteric sclerae ENMT: external ear and nose normal, oropharynx normal Respiratory: normal respiratory effort, lungs clear to auscultation Gastrointestinal (Abdomen): Percussion/Palpation: abdomen soft and + hepatomegaly; abdomen nontender and no guarding Musculoskeletal: Left UE contracture (from old stroke per patient) Neurologic: PERRL, EOMI, accommodation nl, no face palsy, no dysarthria Psychiatric: A+Ox3, euthymic affect Genitourinary: External condom catheter Results & Data Results & Data ([facility]) Vital Signs (Past 12 Hours) Vital Signs Temp Pulse Pulse Resp BP Pulse Ox 10/04/21 07:33 36.5 C 74 17 99/59 L 98 10/04/21 03:38 36.4 C L 65 14 94/48 L 99 Laboratory Results Abnormal lab results 10/03/21 10/03/21 10/03/21 Range/Units 13:51 18:06 22:14 WBC 16.67 H (4.8-10.8) K/uL RBC 2.87 L (4.7-6.1) M/uL Hgb 9.0 L (14.0-18.0) g/dL Hct 29.6 L (42-52) % MCV 103.1 H (80-100) fL MCHC 30.4 L (32-36) g/dL RDW Std Deviation 80.8 H (36.4-46.3) fL RDW Coeff of Cliff 23.8 H (11.5-14.5) % Absolute Nucleated RBC 0.07 H (0-0) K/uL Sodium 153 H 152 H (136-145) mmol/L Chloride 119 H 117 H (98-107) mmol/L Carbon Dioxide 18 L 17 L (21-32) mmol/L Anion Gap 16.0 H 18.0 H (3-11) BUN 67 H 64 H (7-18) mg/dl Creatinine 3.17 H 2.87 H D (0.6-1.4) mg/dl BUN/Creatinine Ratio 21.3 H 22.2 H (10-20) Glucose 160 H 189 H (70-99) mg/dl Total Bilirubin (0.2-1) mg/dl AST (15-37) U/L ALT (12-78) U/L Alkaline Phosphatase (45-117) U/L Total Protein (6.4-8.2) gm/dl Albumin (3.4-5.0) gm/dl Globulin (2.5-4.0) gm/dl Albumin/Globulin Ratio (0.9-2) 10/04/21 10/04/21 Range/Units 04:41 04:41 WBC 13.89 H (4.8-10.8) K/uL RBC 2.57 L (4.7-6.1) M/uL Hgb 8.2 L (14.0-18.0) g/dL Hct 25.9 L (42-52) % MCV 100.8 H (80-100) fL MCHC 31.7 L (32-36) g/dL RDW Std Deviation 80.2 H (36.4-46.3) fL RDW Coeff of Cliff 23.5 H (11.5-14.5) % Absolute Nucleated RBC 0.05 H (0-0) K/uL Sodium 147 H (136-145) mmol/L Chloride 114 H (98-107) mmol/L Carbon Dioxide 19 L (21-32) mmol/L Anion Gap 14.0 H (3-11) BUN 58 H (7-18) mg/dl Creatinine 2.68 H (0.6-1.4) mg/dl BUN/Creatinine Ratio 21.8 H (10-20) Glucose 147 H (70-99) mg/dl Total Bilirubin 5.7 H (0.2-1) mg/dl AST 499 H (15-37) U/L ALT 124 H (12-78) U/L Alkaline Phosphatase 299 H (45-117) U/L Total Protein 6.0 L (6.4-8.2) gm/dl Albumin 1.6 L (3.4-5.0) gm/dl Globulin 4.4 H (2.5-4.0) gm/dl Albumin/Globulin Ratio 0.4 L (0.9-2)
[2021-10-05] MEDS: SODIUM BICARBONATE 8.4% 50 MEQ in DEXTROSE 5% 1,000 ML IV SCH ×3 (02:35→21:27)
[2021-10-05 05:17] LABS: Hematocrit (blood only) 27.4 % (42-52); Hemoglobin 8.7 g/dL (14.0-18.0); Mean Corpuscular Hgb Conc 31.8 g/dL (32-36); Mean Corpuscular Volume 100.7 fL (80-100); Mean Platelet Volume 10.2 fL (7.4-10.4); Nucleated RBC # (auto) 0.06 K/uL (0-0); Nucleated RBC % (auto) 0.3 %; Platelet Count 178 K/uL (130-400); RDW Coefficient of Variation 23.8 % (11.5-14.5); RDW Standard Deviation 79.5 fL (36.4-46.3); Red Blood Count 2.72 M/uL (4.7-6.1); White Blood Count 19.89 K/uL (4.8-10.8)
[2021-10-05 05:47] LABS: Calcium 8.4 mg/dl (8.5-10.1); Creatinine Clr Calc Pharmacy 14.4 ml/min; Est GFR (African American) 19.3 ml/min; Est GFR (Non-African American) 16.6 ml/min; Magnesium 2.1 mg/dl (1.8-2.4); Phosphorus 3.6 mg/dl (2.5-4.9); Potassium 4.8 mmol/L (3.5-5.1)
[2021-10-05] MEDS: ONDANSETRON INJ 2 MG/ML 2 ML VIAL IV PRN (07:53)
[2021-10-05] MEDS: HEPARIN SOD 5,000 UNIT/0.5 ML VIAL SQ SCH ×2 (07:53→21:27)
--- NOTE | 2021-10-05 09:02 | Cardiology Progress Note ---
Date of Service October 05, 2021 Assessment & Plan (1) Colon cancer metastasized to liver: (2) Weakness: (3) Acute on chronic kidney failure: (4) Dehydration, severe: (5) Asystole: Plan: Palliative care has been consulted regarding goals of therapy. His rhythm has been stable for the past 24 hours. Cardiology will sign off the case please reconsult us if necessary. Admission and Anticipated Discharge Date Admission Date: October 02, 2021 Subjective The patient status is unchanged. He is waiting for palliative care consult. Review of Systems Review of Systems: Review of Systems: See HPI for pertinent positives. All other 10 point review of systems are negative. Physical Exam Physical Exam: General: no acute distress and stated age Head: normocephalic, no masses, lesions, tenderness or abnormalities Eyes: conjunctiva are pink and non-injected, sclera clear Neck: supple, no adenopathy, no bruits, normal jugular venous pulse, no hepat ojugular reflux Chest: normal shape and normal respiratory effort Lungs: clear to auscultation and percussion Cardiac Exam: - regular rate & rhythm, no murmurs gallops or rubs - normal S1, normal S2 Pulses: 2(+) throughout Abdomen: abdomen soft, non-tender, no abnormal masses and no hepatosplenomegaly Musculoskeletal: no gait disturbance, no joint inflammation, no deforming arthritis Extremities: no edema and no cyanosis Neuro: grossly normal exam Results & Data ([facility]) Vital Signs (Past 12 Hours) Vital Signs Temp Pulse Pulse Pulse Resp BP Pulse Ox 10/05/21 07:46 36.5 C 80 18 98/46 L 99 10/05/21 03:21 36.7 C 77 24 96/51 L 98 10/04/21 22:57 36.8 C 75 18 92/53 L 98 10/04/21 21:44 80 Laboratory Results Laboratory Results - last 24 hr 10/04/21 10/05/21 10/05/21 04:41 04:42 04:42 WBC 19.89 H RBC 2.72 L Hgb 8.7 L Hct 27.4 L MCV 100.7 H MCH 32.0 MCHC 31.8 L RDW Std Deviation 79.5 H RDW Coeff of Cliff 23.8 H Plt Count 178 MPV 10.2 Absolute Nucleated RBC 0.06 H Nucleated RBC % (auto) 0.3 Sodium 138 D Potassium 4.8 D Chloride 102 Carbon Dioxide 22 Anion Gap 14.0 H BUN 62 H Creatinine 3.45 H D Est Cr Clr Drug Dosing 14.4 Est GFR ( Amer) 19.3 Est GFR (Non-Af Amer) 16.6 BUN/Creatinine Ratio 18.0 Glucose 206 H Calcium 8.4 L Phosphorus 3.6 D Magnesium 2.1 Hepatitis C Ab Screen Pending Diagnostic Findings Reviewed the past 24-hour telemetry and there were no significant pauses or other significant arrhythmias. Medications Administered Current Inpatient Medications Acetaminophen (Acetaminophen 325 Mg Tab) 650 mg PO Q4H PRN PRN Reason: pain/fever Stop: 11/01/21 20:51 Diltiazem HCl (Diltiazem Hcl 240 Mg Capcr) 240 mg PO QAM [facility] Stop: 11/03/21 08:59 Heparin Sodium (Porcine) (Heparin Sod 5,000 Unit/0.5 Ml Vial) 5,000 units SQ Q12 AILYN Stop: 11/01/21 20:59 Last Admin: 10/05/21 07:53 Dose: 5,000 units Documented by: Sodium Bicarbonate 50 meq/ (Dextrose) 1,050 mls @ 100 mls/hr IV .[id number] [facility] Stop: 11/02/21 18:14 Last Admin: 10/05/21 02:35 Dose: 100 mls/hr Documented by: Metoprolol Tartrate (Metoprolol Tartrate 25 Mg Tab) 12.5 mg PO BID [facility] Stop: 11/02/21 08:59 Last Admin: 10/03/21 21:01 Dose: Not Given Documented by: Ondansetron HCl (Ondansetron Inj 2 Mg/Ml 2 Ml Vial) 4 mg IV Q6H PRN PRN Reason: Nausea Stop: 11/01/21 20:51 Last Admin: 10/05/21 07:53 Dose: 4 mg Documented by: Polyethylene Glycol (Polyethylene (Miralax) 17 Gm Pack) 17 gm PO DAILY PRN PRN Reason: Constipation Stop: 11/01/21 20:51
--- NOTE | 2021-10-05 13:33 | Palliative Care Consultation ---
Date of Consultation October 05, 2021 Assessment & Plan (1) Confusion: Variable. He is able to have a cogent goals of care discussion today. (2) Nausea: Relieved with zofran. (3) Palliative care encounter: I talked with Ming about his illness. He understands that he has advanced colon cancer with mets in his liver. He also understands that he has renal failure. He tells me that he would be agreeable to chemo and radiation therapies for cancer treatment but also understands that his body is too weak right now. His hope is that he can return to his prior level of function. We did discuss that he has may challenges ahead of him and that may not be a realistic goal. I asked him if there were any limitations to his care and he told me that he would not want excessive treatment. When I asked him what that meant to him he said that he would want CPR but if it was going on for a long time, it should be stopped. He said the same was true for intubation, if he were intubated for a short time that would be ok with him but if he was looking at halfway vent support, he would prefer to pass peacefully. He tells me that he is not a particularly spiritual person. When I asked him what helps him through difficult times, he said, "I just keep pushing through". He has a sister, Linette, and also a brother in [place], [place] who are his primary supports in addition to his caregiver, Patti, who comes to help him a few times a month. He recognizes that he can not return home in his current state and would be agreeable to SNF if needed. He tells me that Linette would be his surrogate decision maker but does not have her phone number. He has also not spoken with her specifically about what he would want for his care. He tells me that he does have a son in [place] but he is not really in contact with him. His preference is that Patti be the electric motors salesperson and she will relay information to his sister and brother. Discussed with RN, Dr. Woodruff and Dr. Bullard (4) Dehydration, severe: (5) Severe malnutrition: (6) Colon cancer metastasized to liver: (7) Elevated LFTs: History of Present Illness Reason for Consultation: goals of care Requesting Physician: Dr. Woodruff Attending Physician: Whitley Woodruff MD History of Present Illness 75 yo gentleman who was diagnosed with colon cancer and extensive hepatic metastases only 2-3 weeks ago. 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 He lives alone with a caregiver. He has had functional decline and was unable to do even basic ADLs or get meals for himself. He has had poor po intake with dehydration and GEMMA on admission as well as hypernatremia. During the course of his stay renal function has not improved. His current creatinine is 3.45 with a GFR of 19. He has markedly elevated liver enzymes and protein calorie malnutrition. With dehydration and electrolyte abnormalities, he has also had brief asystolic pauses during his stay and is monitored in the ICU. Ming was scheduled to meet with outpatient oncology this week but was unable to do so while hospitalized. He has not really had significant amount of time to fully comprehend his diagnosis and has not been able to consider treatment options. Allergies Allergy/AdvReac Type Severity Reaction Status Date / Time No Known Allergies Allergy Unknown Verified 10/02/21 16:21 Home Medications Medication Instructions Recorded Confirmed Type cholecalciferol (vitamin D3) 50 2,000 unit PO DAILY 09/10/21 10/02/21 History mcg (2,000 unit) capsule (Vitamin D3) diltiazem HCl 180 mg 360 mg PO DAILY 09/10/21 10/02/21 History capsule,extended release 24 hr metoprolol tartrate 25 mg tablet 12.5 mg PO BID 09/10/21 10/02/21 History simvastatin 20 mg tablet 20 mg PO DAILY 09/10/21 10/02/21 History calcitriol 0.5 mcg capsule 0.5 mcg PO DAILY 09/11/21 10/02/21 History Patient History Medical History Anemia CKD (chronic kidney disease) Colon cancer metastasized to liver HTN (hypertension) Hyperlipidemia Hypertension Stroke Surgical History Hx of tonsillectomy Family History Other Heart disease Social History Smoking Status: Never smoker Do You Dip or Chew Tobacco: No; Hx Alcohol Use: No Hx Substance Use: No Communication Ability: Effective Compensation Adjuster Required: No Beliefs That Will Affect Care: None marital status: Current Living Situation: Alone Current Living Situation Comment: Home Health assistance How many Children do You have: 1 Feels Safe at Home: Yes Assistive Devices: Walker Assistive Devices Comment: wheelchair bound at this time Review of Systems Review of Systems: [place] Symptom Assessment Scale Pain 0/3 Dyspnea 0/3 Nausea 1/3 Fatigue 2/3 Drowsiness 1/3 Palliative Performance Score 30% Physical Exam Constitutional: + ill appearing and + cachectic ENMT: Mouth: oral mucous membranes not dry Respiratory: normal respiratory effort; no labored breathing Cardiovascular: Rate/Rhythm: regular rate and regular rhythm Musculoskeletal: Extremities: + muscle atrophy contractures Results & Data ([facility]) Vital Signs (Past 12 Hours) Vital Signs Temp Pulse Pulse Resp BP Pulse Ox 10/05/21 12:19 97.5 F L 84 16 81/47 L 99 10/05/21 07:46 97.7 F 80 18 98/46 L 99 10/05/21 03:21 98.1 F 77 24 96/51 L 98 PG Care Time/CCT Total # of Minutes Spent Total Time Spent: 70 Total Time Spent with Patient: Total time spent is greater than 50% in coordination of care (as documented) at patient's floor/unit and/or counseling patient: goals of care, code status, surrogate decision maker, coordination of care Coding Level of Care Code 85677 Initial Inpt Care Lvl 3 Diagnoses Confusion R41.0 Nausea R11.0 Palliative care encounter Z51.5 Dehydration, severe E86.0 Severe malnutrition E43 Colon cancer metastasized to liver C18.9; C78.7 Elevated LFTs R79.89
--- NOTE | 2021-10-05 13:48 | Hospitalist Progress Note ---
Date of Service October 05, 2021 Assessment & Plan (1) Colon cancer metastasized to liver: (2) Nausea and vomiting: (3) Severe malnutrition: (4) Weight loss: (5) Weakness: Plan: 75yo M with a PMH of recently diagnosed colon cancer with metastasis to liver, CKD, history of CVA with residual hemiparesis, HTN who presents with increased weakness and difficulty ambulating at home. In setting of recent diagnosis of metastatic adenocarcinoma consistent with colonic primary Has not yet established with oncology prior to admission Difficulty ambulating to kitchen and making food due to weakness, lives alone GI and oncologist recommendations noted Elevated LFTs due to liver mets Fall precautions Pt/OT Palliative on board for ongoing goals of care Continue to encourage oral intake Nutritional supplement Monitor for refeeding (6) Acute on chronic kidney failure: Plan: Cr initially elevated at 3 (baseline ~mid-high 1s) in setting of dehydration, poor PO intake Hypernatremia resolved Metabolic acidosis improved with bicarb drip Keg Raiser on board (7) UTI (urinary tract infection): Plan: UA abnormal, leukocytosis of 16 on admission Denied urinary symptoms Urine culture reports 3 diff organism Got ceftriaxone. Off antibiotics now (8) HTN (hypertension): Plan: Pauses noted on monitor 2 nights ago Diltiazem and metoprolol Stopped Dietary Services Manager recs noted Remains hypotensive DVT Ppx: SQ heparin Code status: FULL Admission and Anticipated Discharge Date Admission Date: October 02, 2021 Subjective Patient seen and examined today Patient still having poor intake Had some vomiting after breakfast this morning Denied any pain, cough, shortness of breath Physical Exam Constitutional: + ill appearing, + well hydrated, + thin and + malnourished; no acute distress Eyes: PERRL, conjunctivae normal, anicteric sclerae ENMT: external ear and nose normal, oropharynx normal Respiratory: normal respiratory effort, lungs clear to auscultation Gastrointestinal (Abdomen): Percussion/Palpation: abdomen soft and + hepatomegaly; abdomen nontender and no guarding Musculoskeletal: Pedal edema LUE contracture Neurologic: PERRL, EOMI, accommodation nl, no face palsy, no dysarthria Psychiatric: A+Ox3, euthymic affect Results & Data Results & Data ([facility]) Vital Signs (Past 12 Hours) Vital Signs Temp Pulse Pulse Resp BP Pulse Ox 10/05/21 12:19 36.4 C L 84 16 81/47 L 99 10/05/21 07:46 36.5 C 80 18 98/46 L 99 10/05/21 03:21 36.7 C 77 24 96/51 L 98 Laboratory Results Abnormal lab results 10/05/21 10/05/21 Range/Units 04:42 04:42 WBC 19.89 H (4.8-10.8) K/uL RBC 2.72 L (4.7-6.1) M/uL Hgb 8.7 L (14.0-18.0) g/dL Hct 27.4 L (42-52) % MCV 100.7 H (80-100) fL MCHC 31.8 L (32-36) g/dL RDW Std Deviation 79.5 H (36.4-46.3) fL RDW Coeff of Cliff 23.8 H (11.5-14.5) % Absolute Nucleated RBC 0.06 H (0-0) K/uL Anion Gap 14.0 H (3-11) BUN 62 H (7-18) mg/dl Creatinine 3.45 H D (0.6-1.4) mg/dl Glucose 206 H (70-99) mg/dl Calcium 8.4 L (8.5-10.1) mg/dl
--- NOTE | 2021-10-05 21:02 | Nephrology Progress Note ---
Date of Service October 05, 2021 Assessment & Plan (1) Acute on chronic kidney failure: Plan: nonoliguric GEMMA on CKD3, stage 1. baseline creatinine 1.9. Presenting creatinine 3, peak 3.2 on 10/03, improved to 2.7 10/04 but then abrupt uptick today to 3.5. not oliguric so far and not overloaded. electrolyte issues including hypernatremia (improving), combined anion gap and nonanion gap metabolic acidosis, likely from starvation and diarrhea respectively. His urine sediment is concerning for interstitial nephritis or potentially even a glomerular process though he is not a renal bx candidate. His fluid resuscitation may become challenging given his malnutrition and liver disease> monitor for overload -cont D5W w/ 50 mEq /L sodium bicarb at 100 mL hourly -q 12h-q24h bmp -f/u palliative recs -ABG would improve diagnosis though not necessarily meter changes records clerk -not a dialysis candidate should the need arise given cancer mets and liver dysfunction; I have not discussed this with him (2) Abnormal urine findings: Plan: urine study more consistent with inflammation, tubular dysfunction, and liver disease than infection, though urine cx is in process still and pt being treated for UTI (3) Colon cancer metastasized to liver: Plan: w/ liver, lung mets and significant malnutrition, BMI 16 -agree w/ obtaining palliative consultation; oncology recs noted -may explain diarrhea and bleeding; per RN he was passing jelly like stools w/ blood until today with stephane colored stool -monitor phosphorus daily and for refeeding syndrome > phos ok as are Ca and mag, so no evidence so far (4) HTN (hypertension): Plan: relative hypotension -continue IVF -agree w/ holding cardizem -cont BB w/ hold parameters Admission and Anticipated Discharge Date Admission Date: October 02, 2021 Subjective seen on rounds at about 1430; care d/w palliative and w/ Dr Woodruff; ongoign significant N and weakness, pooor po. no sob, no cough; Review of Systems Review of Systems: All systems reviewed & are unremarkable except as noted in Subjective Physical Exam Constitutional: well developed, + cachectic and cooperative; no acute distress Eyes: EOM intact bilaterally ENMT: Ears: no external ear abnormality Nose: no external nose abnormality Mouth: + dry oral mucous membranes Neck: no nuchal rigidity Respiratory: normal respiratory effort Auscultation: + diminished lung sounds Cardiovascular: RRR, no murmur, no edema Rate/Rhythm: regular rate and regular rhythm Heart Sounds: normal S1 and normal S2 Extremities: + edema (2+ pedal L >> R) Gastrointestinal (Abdomen): Inspection/Auscultation: normal bowel sounds Percussion/Palpation: abdomen soft and + hepatosplenomegaly; abdomen nontender and no guarding Musculoskeletal: Extremities: strength 5/5 throughout Skin: no rashes, warm and dry Psychiatric: Orientation: alert and oriented x 3 Results & Data ([facility]) Vital Signs (Past 12 Hours) Vital Signs Temp Pulse Pulse Resp BP Pulse Ox 10/05/21 19:45 36.6 C 90 20 96/51 L 100 10/05/21 18:03 36.7 C 87 17 89/52 L 100 10/05/21 12:19 36.4 C L 84 16 81/47 L 99 Laboratory Results 10/05/21 04:42 10/05/21 04:42
[2021-10-06] MEDS: ONDANSETRON INJ 2 MG/ML 2 ML VIAL IV PRN ×2 (03:12→17:12)
[2021-10-06 06:26] LABS: BUN Creatinine Ratio 16.2 (10-20); Calcium 8.1 mg/dl (8.5-10.1); Creatinine Clr Calc Pharmacy 13.6 ml/min; Est GFR (Non-African American) 12.9 ml/min; Magnesium 1.9 mg/dl (1.8-2.4); Potassium 4.8 mmol/L (3.5-5.1)
[2021-10-06] MEDS: SODIUM BICARBONATE 8.4% 50 MEQ in DEXTROSE 5% 1,000 ML IV SCH (08:05)
[2021-10-06] MEDS: HEPARIN SOD 5,000 UNIT/0.5 ML VIAL SQ SCH ×2 (08:06→21:06)
[2021-10-06 09:44] LABS: Hematocrit (blood only) 29.8 % (42-52); Hemoglobin 9.8 g/dL (14.0-18.0); Mean Corpuscular Hemoglobin 32.5 pg (25-34); Mean Corpuscular Hgb Conc 32.9 g/dL (32-36); Mean Corpuscular Volume 98.7 fL (80-100); Mean Platelet Volume 11.7 fL (7.4-10.4); Platelet Count 171 K/uL (130-400); RDW Coefficient of Variation 24.3 % (11.5-14.5); Red Blood Count 3.02 M/uL (4.7-6.1); White Blood Count 20.89 K/uL (4.8-10.8)
[2021-10-06 13:19] LABS: Phosphorus 4.6 mg/dl (2.5-4.9)
--- NOTE | 2021-10-06 13:20 | Nephrology Progress Note ---
Date of Service October 06, 2021 Assessment & Plan (1) Acute on chronic kidney failure: Plan: nonoliguric GEMMA on CKD3, stage 1. baseline creatinine 1.9. Presenting creatinine 3, peak 3.2 on 10/03, improved to 2.7 10/04 but then further abrupt uptick today to 4.3. now oliguric though so far not overloaded. electrolyte issues including hypernatremia (resolved ), combined anion gap and nonanion gap metabolic acidosis, likely from starvation (ongoing) and diarrhea (resolved) respectively w/ expected changes in chemistries. His urine sediment is concerning for interstitial nephritis or potentially even a glomerular process though he is not a renal bx candidate. His fluid resuscitation may become challenging given his malnutrition and liver disease> monitor for overload -stopped D5W w/ 50 mEq /L sodium bicarb and instead started albumin 25% 25 gm q8h -q 12h-q24h bmp -f/u palliative recs -ABG would improve diagnosis though not necessarily management tech -not a dialysis or renal biopsy candidate should the need arise given cancer mets and liver dysfunction; I have not discussed this with him (2) Abnormal urine findings: Plan: urine study more consistent with inflammation, tubular dysfunction, and liver disease than infection. urine cx negative; on no abtx currently. not a renal biopsy candidate (3) Colon cancer metastasized to liver: Plan: w/ liver, lung mets and significant malnutrition, BMI 16 on arrival - palliative following ; oncology recs noted -monitor phosphorus daily and for refeeding syndrome > phos ok as are Ca and mag, so no evidence so far Admission and Anticipated Discharge Date Admission Date: October 02, 2021 Subjective no interval events. ongoing N and minimal po intake. no further bloody bm; only a bm smear today. oliguric Review of Systems Review of Systems: All systems reviewed & are unremarkable except as noted in Subjective Physical Exam Constitutional: well developed, + cachectic and cooperative; no acute distress Eyes: EOM intact bilaterally ENMT: Ears: no external ear abnormality Nose: no external nose abnormality Mouth: + dry oral mucous membranes Neck: no nuchal rigidity Respiratory: normal respiratory effort Auscultation: + diminished lung sounds Cardiovascular: RRR, no murmur, no edema Rate/Rhythm: regular rate and regular rhythm Heart Sounds: normal S1 and normal S2 Extremities: + edema (2+ pedal L >> R) Gastrointestinal (Abdomen): Inspection/Auscultation: normal bowel sounds Percussion/Palpation: abdomen soft and + hepatosplenomegaly; abdomen nontender a nd no guarding Musculoskeletal: Extremities: + limited ROM of extremities (contracted L side) and + abnormal strength Skin: no rashes, warm and dry Neurologic: fluent/appropriate speech, no tremor Psychiatric: Orientation: alert and oriented x 3 Results & Data ([facility]) Vital Signs (Past 12 Hours) Vital Signs Temp Pulse Pulse Resp BP Pulse Ox 10/06/21 12:40 36.5 C 90 22 90/48 L 100 10/06/21 08:00 93 H 10/06/21 07:00 36.4 C L 91 H 16 91/53 L 99 10/06/21 02:59 36.5 C 90 18 99/55 L 98 Laboratory Results 10/06/21 09:20 10/06/21 04:56
[2021-10-06] MEDS: ALBUMIN 25% 100 mL 25 GM/100 ML VIAL IV SCH ×2 (13:39→21:06)
--- NOTE | 2021-10-06 14:50 | Hospitalist Progress Note ---
Date of Service October 06, 2021 Assessment & Plan (1) Colon cancer metastasized to liver: (2) Nausea and vomiting: (3) Severe malnutrition: (4) Weight loss: (5) Weakness: Plan: 75yo M with a PMH of recently diagnosed colon cancer with metastasis to liver, CKD, history of CVA with residual hemiparesis, HTN who presents with increased weakness and difficulty ambulating at home. In setting of recent diagnosis of metastatic adenocarcinoma consistent with colonic primary Has not yet established with oncology prior to admission Difficulty ambulating to kitchen and making food due to weakness, lives alone GI and oncologist recommendations noted Elevated LFTs due to liver mets Fall precautions Pt/OT Palliative on board for ongoing goals of care For now patient want to be full code Continue to encourage oral intake Nutritional supplement Monitor for refeeding (6) Acute on chronic kidney failure: Plan: Cr initially elevated at 3 (baseline ~mid-high 1s) in setting of dehydration, po or PO intake Hypernatremia resolved Metabolic acidosis improved with bicarb drip. Bicarb drip stopped Currently on albumin IV per nephro Machine Feller on board (7) UTI (urinary tract infection): Plan: UA abnormal, leukocytosis of 16 on admission Denied urinary symptoms Urine culture reports 3 diff organism Got ceftriaxone. Off antibiotics now (8) HTN (hypertension): Plan: Pauses noted on monitor some nights ago Diltiazem and metoprolol Stopped Conservation Technician recs noted Remains hypotensive Leukocytosis Follow up cultures. Repeat cultures No fevers or other signs of infection Monitor off antibiotics for now. Could also be related to metastatic cancer DVT Ppx: SQ heparin Code status: FULL Admission and Anticipated Discharge Date Admission Date: October 02, 2021 Subjective Patient seen and examined today Patient still having poor intake No vomiting, nausea, abd pain Denied any chest pain, cough, shortness of breath Physical Exam Constitutional: + ill appearing, + well hydrated, + thin and + malnourished; no acute distress Eyes: PERRL, conjunctivae normal, anicteric sclerae ENMT: external ear and nose normal, oropharynx normal Respiratory: normal respiratory effort, lungs clear to auscultation Cardiovascular: Rate/Rhythm: regular rate and regular rhythm S1 S2 Gastrointestinal (Abdomen): Percussion/Palpation: abdomen soft and + hepatomegaly; abdomen nontender and no guarding Musculoskeletal: LUIS left hemiparesis Neurologic: PERRL, EOMI, accommodation nl, no face palsy, no dysarthria Psychiatric: A+Ox3, euthymic affect Results & Data Results & Data ([facility]) Vital Signs (Past 12 Hours) Vital Signs Temp Pulse Pulse Resp BP Pulse Ox 10/06/21 12:40 36.5 C 90 22 90/48 L 100 10/06/21 08:00 93 H 10/06/21 07:00 36.4 C L 91 H 16 91/53 L 99 10/06/21 02:59 36.5 C 90 18 99/55 L 98 Laboratory Results Abnormal lab results 10/06/21 10/06/21 Range/Units 04:56 09:20 WBC 20.89 H (4.8-10.8) K/uL RBC 3.02 L (4.7-6.1) M/uL Hgb 9.8 L (14.0-18.0) g/dL Hct 29.8 L (42-52) % RDW Std Deviation 79.0 H (36.4-46.3) fL RDW Coeff of Cliff 24.3 H (11.5-14.5) % MPV 11.7 H (7.4-10.4) fL Sodium 135 L (136-145) mmol/L Chloride 96 L (98-107) mmol/L Anion Gap 18.0 H (3-11) BUN 69 H (7-18) mg/dl Creatinine 4.25 H D (0.6-1.4) mg/dl Glucose 147 H (70-99) mg/dl Calcium 8.1 L (8.5-10.1) mg/dl
[2021-10-07] MEDS: ONDANSETRON INJ 2 MG/ML 2 ML VIAL IV PRN ×2 (00:07→06:27)
[2021-10-07] MEDS: ALBUMIN 25% 100 mL 25 GM/100 ML VIAL IV SCH ×3 (06:15→21:41)
[2021-10-07 06:20] LABS: Calcium 7.6 mg/dl (8.5-10.1); Est GFR (African American) 12.1 ml/min; Est GFR (Non-African American) 10.4 ml/min; Magnesium 2.2 mg/dl (1.8-2.4); Potassium 5.4 mmol/L (3.5-5.1)
[2021-10-07] MEDS ORDERED: DEXTROSE 50% 50 ML SYRINGE IV STA (06:28)
[2021-10-07] MEDS ORDERED: VANCOMYCIN CONSULT ACTIVE PRN (06:30)
[2021-10-07] MEDS ORDERED: DEXTROSE 50% 50 ML SYRINGE IV ONE (06:36)
[2021-10-07] MEDS ORDERED: VANCOMYCIN HCL 1,000 MG in SODIUM CHLORIDE 0.9% 250 ML IV STA (06:55)
[2021-10-07] MEDS ORDERED: D5W AND NSS 1,000 ML IV SCH (07:30)
[2021-10-07] MEDS: HEPARIN SOD 5,000 UNIT/0.5 ML VIAL SQ SCH ×2 (08:23→21:41)
--- NOTE | 2021-10-07 08:40 | Pharmacy Report ---
Pharmacy Vanc AUC Short Note - Date of Service October 07, 2021 - Assessment & Plan Assessment * 75 year old M receiving VANCOMYCIN IV for treatment of CoN staph bacteremia (growth in 1 bottle of 1 BLCX thus far). * Pertinent microbiologic data includes: 1 BLCX bottle (aerobic) growing CoN s taph per PCR testing. Other set of BLCXs is still pending * + Leukocytosis, no fever noted but hypothermic at times per documented temps * No prosthetic material in place per Hospitalist * Could be contaminant, awaiting further BLCX data * Day # 1 ABX therapy * GEMMA present, eCrCl < 15 Plan Vancomycin * AUC/STEWART is the preferred PK/PD target for vancomycin however this patient does not meet criteria for this method of dosing due to severe GEMMA * Will dose per random AM levels given predicted half-life > 24 hrs * 1000mg (~17mg/kg) given x 1 this AM * Will check random level w/ AM labs tomorrow and redose if < 20 or anticipated to be less than 20 Pharmacy will continue to follow and will adjust dose/frequency as necessary. Thank you.
[2021-10-07 10:27] LABS: Hematocrit (blood only) 26.1 % (42-52); Hemoglobin 8.8 g/dL (14.0-18.0); Mean Corpuscular Hemoglobin 33.2 pg (25-34); Mean Corpuscular Hgb Conc 33.7 g/dL (32-36); Mean Corpuscular Volume 98.5 fL (80-100); Mean Platelet Volume 11.1 fL (7.4-10.4); Nucleated RBC # (auto) 0.04 K/uL (0-0); Nucleated RBC % (auto) 0.2 %; Platelet Count 139 K/uL (130-400); RDW Coefficient of Variation 24.1 % (11.5-14.5); RDW Standard Deviation 78.5 fL (36.4-46.3); Red Blood Count 2.65 M/uL (4.7-6.1); White Blood Count 16.07 K/uL (4.8-10.8)
[2021-10-07 11:00] LABS: BUN Creatinine Ratio 16.3 (10-20)
[2021-10-07 11:01] LABS: Phosphorus 5.9 mg/dl (2.5-4.9)
--- NOTE | 2021-10-07 12:23 | Nephrology Progress Note ---
Date of Service October 07, 2021 Assessment & Plan (1) Acute on chronic kidney failure: Plan: nonoliguric GEMMA on CKD3, stage 1. baseline creatinine 1.9. Presenting creatinine 3, peak 3.2 on 10/03, improved to 2.7 10/04 but then further abrupt uptick today to 5.1. now oliguric though so far not overloaded. electrolyte issues including hypernatremia (resolved ), combined anion gap and nonanion gap metabolic acidosis, likely from starvation (ongoing) and diarrhea (resolved) respectively w/ expected changes in chemistries. His urine sediment is concerning for interstitial nephritis or potentially even a glomerular process though he is not a renal bx candidate. 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 urine cx negative; on no abtx currently. not a renal biopsy candidate (3) Colon cancer metastasized to liver: Plan: w/ liver, lung mets and significant malnutrition, BMI 16 on arrival - palliative following ; oncology recs noted -monitor phosphorus daily and for refeeding syndrome > phos ok as are Ca and mag, so no evidence so far Admission and Anticipated Discharge Date Admission Date: October 02, 2021 Subjective taking minimal po; blood tinged BM x 1; no uncontrolled pain. no dypsnea; seen on rounds at about 1230 Review of Systems Review of Systems: All systems reviewed & are unremarkable except as noted in Subjective Physical Exam Constitutional: well developed, + cachectic and cooperative; no acute distress Eyes: EOM intact bilaterally ENMT: Ears: no external ear abnormality Nose: no external nose abnormality Mouth: + dry oral mucous membranes Neck: no nuchal rigidity Respiratory: normal respiratory effort Auscultation: + diminished lung sounds Cardiovascular: RRR, no murmur, no edema Rate/Rhythm: regular rate and regular rhythm Heart Sounds: normal S1 and normal S2 Extremities: + edema (2+ pedal BL) Gastrointestinal (Abdomen): Inspection/Auscultation: normal bowel sounds Percussion/Palpation: abdomen soft and + hepatosplenomegaly; abdomen nontender and no guarding Musculoskeletal: Extremities: + limited ROM of extremities (contracted L side) and + abnormal strength Skin: no rashes, warm and dry Psychiatric: Orientation: alert and oriented x 3 Results & Data ([facility]) Vital Signs (Past 12 Hours) Vital Signs Temp Pulse Pulse Resp BP Pulse Ox 10/07/21 11:32 36.3 C L 86 20 101/53 L 100 10/07/21 08:00 85 10/07/21 07:45 36.5 C 86 20 113/62 100 10/07/21 06:55 33.2 C L 55 L 23 88 L 10/07/21 03:48 36.4 C L 85 23 104/52 L 100 Laboratory Results 10/07/21 10:09 10/07/21 05:27
[2021-10-07] MEDS ORDERED: SODIUM BICARBONATE 8.4% 100 MEQ in DEXTROSE 5% 1,000 ML IV SCH (13:00)
--- NOTE | 2021-10-07 14:42 | Hospitalist Progress Note ---
Date of Service October 07, 2021 Assessment & Plan (1) Colon cancer metastasized to liver: (2) Nausea and vomiting: (3) Severe malnutrition: (4) Weight loss: (5) Weakness: Plan: 75yo M with a PMH of recently diagnosed colon cancer with metastasis to liver, CKD, history of CVA with residual hemiparesis, HTN who presents with increased weakness and difficulty ambulating at home. In setting of recent diagnosis of metastatic adenocarcinoma consistent with colonic primary Has not yet established with oncology prior to admission Difficulty ambulating to kitchen and making food due to weakness, lives alone GI and oncologist recommendations noted Elevated LFTs due to liver mets Palliative on board for ongoing goals of care For now patient maintains full code Continue to encourage oral intake Nutritional supplement (6) Acute on chronic kidney failure: Plan: Cr initially elevated at 3 (baseline ~mid-high 1s) in setting of dehydration, poor PO intake Hypernatremia resolved Worsening renal function Asp Net Developer recs noted Was hypoglycemic in AM. D5W started. Changed to D5W w/100mEq NaCO3 per nephro Monitor Low K diet (7) UTI (urinary tract infection): Plan: UA abnormal, leukocytosis of 16 on admission Denied urinary symptoms Urine culture reports 3 diff organism (8) HTN (hypertension): Plan: Pauses noted on monitor some nights ago Diltiazem and metoprolol Stopped Database Analyst recs noted Bacteremia Possible sepsis with leukocytosis and bacteremia Blood culture growing GPC in clusters, not MRSA Continue vancomycin Repeat BCx Get TTE Monitor leukocytosis DVT Ppx: SQ heparin Code status: FULL Admission and Anticipated Discharge Date Admission Date: October 02, 2021 Subjective Patient seen and examined today BCx growing GPC in clusters. Started on vancomycin Patient still having poor intake No vomiting, nausea, abd pain No chest pain, SOB at rest, cough RN reported some blood in BM today Physical Exam Constitutional: + ill appearing, + well hydrated, + thin and + malnourished; no acute distress Eyes: PERRL, conjunctivae normal, anicteric sclerae ENMT: external ear and nose normal, oropharynx normal Respiratory: normal respiratory effort, lungs clear to auscultation Cardiovascular: Rate/Rhythm: regular rate and regular rhythm S1 S2 Gastrointestinal (Abdomen): Percussion/Palpation: abdomen soft and + hepatomegaly; abdomen nontender and no guarding Musculoskeletal: +LUIS Neurologic: PERRL, EOMI, accommodation nl, no face palsy, no dysarthria Psychiatric: A+Ox3, euthymic affect Results & Data Results & Data ([facility]) Vital Signs (Past 12 Hours) Vital Signs Temp Pulse Pulse Resp BP Pulse Ox 10/07/21 11:32 36.3 C L 86 20 101/53 L 100 10/07/21 08:00 85 10/07/21 07:45 36.5 C 86 20 113/62 100 10/07/21 06:55 33.2 C L 55 L 23 88 L 10/07/21 03:48 36.4 C L 85 23 104/52 L 100 Laboratory Results Abnormal lab results 10/07/21 10/07/21 10/07/21 Range/Units 05:27 06:40 07:07 WBC (4.8-10.8) K/uL RBC (4.7-6.1) M/uL Hgb (14.0-18.0) g/dL Hct (42-52) % RDW Std Deviation (36.4-46.3) fL RDW Coeff of Cliff (11.5-14.5) % MPV (7.4-10.4) fL Absolute Nucleated RBC (0-0) K/uL Sodium 135 L (136-145) mmol/L Potassium 5.4 H (3.5-5.1) mmol/L Chloride 96 L (98-107) mmol/L Carbon Dioxide 20 L (21-32) mmol/L Anion Gap 19.0 H (3-11) BUN 83 H (7-18) mg/dl Creatinine 5.07 H* D (0.6-1.4) mg/dl Glucose 50 L* (70-99) mg/dl POC Glucose 51 L* 106 H (70-99) mg/dl Calcium 7.6 L (8.5-10.1) mg/dl Phosphorus 5.9 H D (2.5-4.9) mg/dl 10/07/21 Range/Units 10:09 WBC 16.07 H (4.8-10.8) K/uL RBC 2.65 L (4.7-6.1) M/uL Hgb 8.8 L (14.0-18.0) g/dL Hct 26.1 L (42-52) % RDW Std Deviation 78.5 H (36.4-46.3) fL RDW Coeff of Cliff 24.1 H (11.5-14.5) % MPV 11.1 H (7.4-10.4) fL Absolute Nucleated RBC 0.04 H (0-0) K/uL Sodium (136-145) mmol/L Potassium (3.5-5.1) mmol/L Chloride (98-107) mmol/L Carbon Dioxide (21-32) mmol/L Anion Gap (3-11) BUN (7-18) mg/dl Creatinine (0.6-1.4) mg/dl Glucose (70-99) mg/dl POC Glucose (70-99) mg/dl Calcium (8.5-10.1) mg/dl Phosphorus (2.5-4.9) mg/dl
[2021-10-08] MEDS ORDERED: SODIUM BICARBONATE IV SCH (02:45)
[2021-10-08] MEDS ORDERED: D5W IV SCH (02:45)
[2021-10-08] MEDS ORDERED: [UNRECOGNIZED DRUG - OTHER] IV SCH (02:45)
[2021-10-08] MEDS: ALBUMIN 25% 100 mL 25 GM/100 ML VIAL IV SCH (05:27)
[2021-10-08 06:05] LABS: Hematocrit (blood only) 24.5 % (42-52); Hemoglobin 8.1 g/dL (14.0-18.0); Mean Corpuscular Hemoglobin 32.3 pg (25-34); Mean Corpuscular Hgb Conc 33.1 g/dL (32-36); Mean Corpuscular Volume 97.6 fL (80-100); Mean Platelet Volume 10.9 fL (7.4-10.4); Nucleated RBC # (auto) 0.02 K/uL (0-0); Nucleated RBC % (auto) 0.1 %; Platelet Count 137 K/uL (130-400); RDW Coefficient of Variation 24.6 % (11.5-14.5); RDW Standard Deviation 81.7 fL (36.4-46.3); Red Blood Count 2.51 M/uL (4.7-6.1); White Blood Count 16.72 K/uL (4.8-10.8)
[2021-10-08 06:50] LABS: Calcium 7.6 mg/dl (8.5-10.1); Creatinine Clr Calc Pharmacy 10.3 ml/min; Est GFR (African American) 10.7 ml/min; Est GFR (Non-African American) 9.3 ml/min; Magnesium 2.2 mg/dl (1.8-2.4); Phosphorus 5.3 mg/dl (2.5-4.9)
[2021-10-08] MEDS ORDERED: VANCOMYCIN HCL 1,000 MG in SODIUM CHLORIDE 0.9% 250 ML IV ONE (08:15)
[2021-10-08] MEDS: HEPARIN SOD 5,000 UNIT/0.5 ML VIAL SQ SCH (09:07)
[2021-10-08] MEDS ORDERED: ONDANSETRON 4 MG OD TAB SL PRN (09:48)
[2021-10-08] MEDS ORDERED: GLYCOPYRROLATE 0.2 MG/ML VIAL IV PRN (09:48)
[2021-10-08] MEDS ORDERED: LORazepam 0.5 MG/1 ML VIAL IV PRN (09:48)
[2021-10-08] MEDS ORDERED: LORazepam 0.5 MG TAB PO PRN (09:48)
--- NOTE | 2021-10-08 10:04 | Palliative Care Progress Note ---
Date of Service October 08, 2021 Assessment & Plan (1) Palliative care encounter: Plan: I talked with Ming about the progression of his illness. He realizes that he is dying. I asked him how he felt about that and he told me that "everybody dies". On our last visit, he had indicated that his hope was to be strong enough to receive treatment for his colon cancer. He now recognizes that is not possible. At this time he would prefer to shift focus of care to comfort measures only. With his permission, I called his sister, Linette, who did not answer. I was able to reach his brother, Andrew, and I spoke with Andrew about our conversation and Ming's wishes. He understands and supports Ming's wishes. He and Linette will be coming from [place] to see Ming tomorrow. I also spoke with his caregiver, Patti. Dr. Woodruff, Dr. Hoffman, Dr. Bullard and RN aware. He is not currently having pain but given his renal failure, will order prn hydromorphone available if needed. (2) Severe malnutrition: (3) Colon cancer metastasized to liver: (4) Acute on chronic kidney failure: (5) Elevated LFTs: Admission and Anticipated Discharge Date Admission Date: October 02, 2021 Subjective Very weak. Complains of feeling dry. Mouth moisturized with sponges and water. He denies pain. Very poor po intake. Creatinine increased to 5.6. Review of Systems Review of Systems: [place] Symptom Assessment Scale Pain 0/3 Dyspnea 0/3 Anxiety 1/3 Fatigue 2/3 Nausea 0/3 Drowsiness 2/3 Palliative Performance Score 20% Physical Exam Constitutional: + ill appearing and + cachectic ENMT: Mouth: + dry oral mucous membranes Respiratory: normal respiratory effort; no labored breathing Cardiovascular: Rate/Rhythm: regular rate and regular rhythm Musculoskeletal: Extremities: + muscle atrophy Neurologic: Speech / Cognition: normal cognition Results & Data ([facility]) Vital Signs (Past 12 Hours) Vital Signs Temp Pulse Pulse Resp BP Pulse Ox 10/08/21 09:13 97.3 F L 87 18 104/56 L 100 10/08/21 08:46 86 10/08/21 03:35 97.9 F 80 17 101/55 L 100 10/07/21 23:36 97.7 F 94 H 19 114/56 L 100 10/07/21 23:10 85 PG Care Time/CCT Total # of Minutes Spent Total Time Spent: 35 Total Time Spent with Patient: Total time spent is greater than 50% in coordination of care (as documented) at patient's floor/unit and/or counseling patient: goals of care, symptom management, code status, family update and support. Coding Level of Care Code 71719 Subseq Hosp Care Lvl 3 Diagnoses Palliative care encounter Z51.5 Severe malnutrition E43 Colon cancer metastasized to liver C18.9; C78.7 Acute on chronic kidney failure N17.9; N18.9 Elevated LFTs R79.89
--- NOTE | 2021-10-08 13:58 | Hospitalist Progress Note ---
Date of Service October 08, 2021 Assessment & Plan (1) Colon cancer metastasized to liver: (2) Nausea and vomiting: (3) Severe malnutrition: (4) Weight loss: (5) Acute on chronic kidney failure: (6) UTI (urinary tract infection): (7) HTN (hypertension): (8) Weakness: Plan: 75yo M with a PMH of recently diagnosed colon cancer with metastasis to liver, CKD, history of CVA with residual hemiparesis, HTN who presents with increased weakness and difficulty ambulating at home. In setting of recent diagnosis of metastatic adenocarcinoma consistent with colonic primary Had not yet established with oncology prior to admission Difficulty ambulating to kitchen and making food due to weakness, lives alone Patient has anorexia with poor food and fluid intake Worsening renal function Had pauses on tele some nights ago and diltiazem and metoprolol were discon tinued Grew staph in blood cultures and was started on vancomycin. Repeat blood cultures negative. Patient had conversation with forensic identification specialist Dr. Sanchez this morning and opted to proceed with full comfort measures and discontinue all active treatment. Patient currently on comfort care measures Admission and Anticipated Discharge Date Admission Date: October 02, 2021 Subjective Patient seen and examined. Patient had goals of care conversation with the forensic identification specialist Dr. Sanchez this morning and decided to stop active treatment and proceed with comfort care measures. Patient currently denies any pain or discomfort. Physical Exam Constitutional: + ill appearing, + well hydrated, + thin and + malnourished; no acute distress Eyes: PERRL, conjunctivae normal, anicteric sclerae ENMT: external ear and nose normal, oropharynx normal Respiratory: normal respiratory effort, lungs clear to auscultation Cardiovascular: Rate/Rhythm: regular rate and regular rhythm S1 S2 Gastrointestinal (Abdomen): Percussion/Palpation: abdomen soft and + hepatomegaly; abdomen nontender and no guarding Musculoskeletal: Pedal edema Neurologic: Left hemiparesis with LUE contractures Results & Data Results & Data ([facility]) Vital Signs (Past 12 Hours) Vital Signs Temp Pulse Pulse Resp BP Pulse Ox 10/08/21 12:04 91 H 16 112/61 100 10/08/21 09:13 36.3 C L 87 18 104/56 L 100 10/08/21 08:46 86 10/08/21 03:35 36.6 C 80 17 101/55 L 100 Laboratory Results Abnormal lab results 10/08/21 10/08/21 Range/Units 05:36 05:36 WBC 16.72 H (4.8-10.8) K/uL RBC 2.51 L (4.7-6.1) M/uL Hgb 8.1 L (14.0-18.0) g/dL Hct 24.5 L (42-52) % RDW Std Deviation 81.7 H (36.4-46.3) fL RDW Coeff of Cliff 24.6 H (11.5-14.5) % MPV 10.9 H (7.4-10.4) fL Absolute Nucleated RBC 0.02 H (0-0) K/uL Sodium 135 L (136-145) mmol/L Chloride 95 L (98-107) mmol/L Carbon Dioxide 20 L (21-32) mmol/L Anion Gap 20.0 H (3-11) BUN 90 H (7-18) mg/dl Creatinine 5.60 H* D (0.6-1.4) mg/dl Calcium 7.6 L (8.5-10.1) mg/dl Phosphorus 5.3 H (2.5-4.9) mg/dl
[2021-10-08] MEDS: ONDANSETRON INJ 2 MG/ML 2 ML VIAL IV PRN (15:45)
[2021-10-08] MEDS: HYDROmorphone INJ 0.5 MG/0.5 ML SYR IV PRN (22:26)
[2021-10-09] MEDS: HYDROmorphone INJ 0.5 MG/0.5 ML SYR IV PRN (05:53)
--- NOTE | 2021-10-09 10:12 | Palliative Care Progress Note ---
Date of Service October 09, 2021 Assessment & Plan (1) Palliative care encounter: Plan: Pt remains under BODY AND FENDER MECHANIC with his care. When I entered his room,he was receiving care from an RN and COMPRESS MACHINE OPERATOR. He was arousable and has been comfortable today. He utilized two doses of Dilaudid overnight. While patient is currently under BODY AND FENDER MECHANIC, should patient remain stable, case management can assist with alternative disposition; however, placement has proven to be challenging lately. Patient lives at home alone and would require 24/7 caregivers should he return home. No family at bedside at this time. His relatives did visit from [place] yesterday. Palliative will follow and ensure appropriate pain/symptom management. (2) Severe malnutrition: (3) Colon cancer metastasized to liver: (4) Acute on chronic kidney failure: (5) Elevated LFTs: Admission and Anticipated Discharge Date Admission Date: October 02, 2021 Subjective Patient seen and examined. Pt remains BODY AND FENDER MECHANIC. Utilized TWO doses of Dilaudid over 24 hour period. See A/P for further details. Review of Systems Review of Systems: [place] Symptom Assessment Scale Pain 0/3 Dyspnea 0/3 Anxiety 1/3 Fatigue 2/3 Nausea 0/3 Drowsiness 2/3 Palliative Performance Score 20% Physical Exam Constitutional: + frail appearing and comfortable ENMT: Mouth: + dry oral mucous membranes Respiratory: normal respiratory effort Cardiovascular: Rate/Rhythm: regular rate and regular rhythm Gastrointestinal (Abdomen): Inspection/Auscultation: abdomen normal to inspection Skin: + skin tightening, + dry skin and + ecchymosis Psychiatric: Orientation: alert, oriented x 3 and cooperative Results & Data ([facility]) Vital Signs (Past 12 Hours) Vital Signs Temp Pulse Resp BP Pulse Ox 10/09/21 06:56 36.9 C 97 H 14 118/56 L 98 10/08/21 23:03 36.3 C L 106 H 22 113/66 100 PG Care Time/CCT Total # of Minutes Spent Total Time Spent with Patient: Total time spent is greater than 50% in coordination of care (as documented) at patient's floor/unit and/or counseling patient: 35 minutes Coding Level of Care Code 10511 Subseq Hosp Care Lvl 3 Diagnoses Palliative care encounter Z51.5 Severe malnutrition E43 Colon cancer metastasized to liver C18.9; C78.7 Acute on chronic kidney failure N17.9; N18.9 Elevated LFTs R79.89 Time Spent (min) 35
--- NOTE | 2021-10-09 11:16 | Hospitalist Progress Note ---
Date of Service October 09, 2021 Assessment & Plan (1) Colon cancer metastasized to liver: (2) Nausea and vomiting: (3) Severe malnutrition: (4) Weight loss: (5) Acute on chronic kidney failure: (6) UTI (urinary tract infection): (7) HTN (hypertension): (8) Weakness: Plan: 75yo M with a PMH of recently diagnosed colon cancer with metastasis to liver, CKD, history of CVA with residual hemiparesis, HTN who presents with increased weakness and difficulty ambulating at home. In setting of recent diagnosis of metastatic adenocarcinoma consistent with colonic primary Had not yet established with oncology prior to admission Difficulty ambulating to kitchen and making food due to weakness, lives alone Patient has anorexia with poor food and fluid intake Worsening renal function Had pauses on tele some nights ago and diltiazem and metoprolol were discon tinued Grew staph in blood cultures and was started on vancomycin. Repeat blood cultures negative. Patient had conversation with technical specialist cytology Dr. Sanchez on 10/08/21 and opted to proceed with full comfort measures and discontinue all active treatment. Patient currently on comfort care measures Admission and Anticipated Discharge Date Admission Date: October 02, 2021 Subjective Patient seen and examined. Brother and sister were at bedside and updated Patient currently denied any discomfort/pain Physical Exam Constitutional: + ill appearing, + well hydrated, + thin and + malnourished; no acute distress Eyes: PERRL, conjunctivae normal, anicteric sclerae ENMT: external ear and nose normal, oropharynx normal Respiratory: normal respiratory effort, lungs clear to auscultation Cardiovascular: Rate/Rhythm: regular rate and regular rhythm S1 S2 Gastrointestinal (Abdomen): Percussion/Palpation: abdomen soft and + hepatomegaly; abdomen nontender and no guarding Musculoskeletal: Pedal edema LUE contracture Neurologic: PERRL, EOMI, accommodation nl, no face palsy, no dysarthria Results & Data Results & Data ([facility]) Vital Signs (Past 12 Hours) Vital Signs Temp Pulse Resp BP Pulse Ox 10/09/21 06:56 36.9 C 97 H 14 118/56 L 98
[2021-10-09] MEDS: ONDANSETRON INJ 2 MG/ML 2 ML VIAL IV PRN (16:02)
--- NOTE | 2021-10-10 13:41 | Palliative Care Progress Note ---
Date of Service October 10, 2021 Assessment & Plan (1) Nausea: Plan: Zofran available. Denies currently. Minimal po intake (2) Palliative care encounter: Plan: Comfort directed care. Family is here from [place] and has been at his bedside. Expect continued decline and within days. (3) Colon cancer metastasized to liver: Admission and Anticipated Discharge Date Admission Date: October 02, 2021 Subjective Sleeping but easily arousable. Per RN, family has been giving him small bites of food which he is tolerating. He denies pain or dyspnea. Very little urine output. Review of Systems Review of Systems: [place] Symptom Assessment Scale Pain 0/3 Dyspnea 0/3 Nausea 0/3 Anxiety 0/3 Palliative Performance Score 20% Physical Exam Constitutional: + ill appearing and + lethargic ENMT: Mouth: + dry oral mucous membranes Respiratory: normal respiratory effort; no labored breathing no audible secretrions Cardiovascular: LE edema Gastrointestinal (Abdomen): nontender Musculoskeletal: Extremities: + muscle atrophy Skin: warm and dry PG Care Time/CCT Total # of Minutes Spent Total Time Spent with Patient: Total time spent is greater than 50% in coordination of care (as documented) at patient's floor/unit and/or counseling patient: Coding Level of Care Code 62310 Subseq Hosp Care Lvl 2 Diagnoses Nausea R11.0 Palliative care encounter Z51.5 Colon cancer metastasized to liver C18.9; C78.7
--- NOTE | 2021-10-10 14:24 | Hospitalist Progress Note ---
Date of Service October 10, 2021 Assessment & Plan (1) Comfort measures only status: (2) Colon cancer metastasized to liver: (3) Nausea and vomiting: (4) Severe malnutrition: (5) Weight loss: (6) Acute on chronic kidney failure: (7) UTI (urinary tract infection): (8) HTN (hypertension): (9) Weakness: Plan: In setting of recent diagnosis of metastatic adenocarcinoma consistent with colonic primary Had not yet established with oncology prior to admission Difficulty ambulating to kitchen and making food due to weakness, lives alone Patient has anorexia with poor food and fluid intake Worsening renal function Had pauses on tele some nights ago and diltiazem and metoprolol were discontinued Grew staph in blood cultures and was started on vancomycin. Repeat blood cultures negative. Patient had conversation with epoxy specialist Dr. Sanchez on 10/08/21 and opted to proceed with full comfort measures and discontinue all active treatment. Patient currently on comfort care measures 10/10: appears comfortable, palliative team involved with care. Some blood per rectum noted but not profuse. Some hydromorphone given yesterday morning, but he hasn't needed this throughout the day today. Placement is the next obstacle as he lives alone and cannot return home and function independently with ADLs. Palliative team and CM team are working on this. Mickie Saucedo DO [facility] and Anticipated Discharge Date Admission Date: October 02, 2021 Subjective 75yo M with a PMH of recently diagnosed colon cancer with metastasis to liver, CKD, history of CVA with residual hemiparesis, HTN who presents with increased weakness and difficulty ambulating at home. Patient is currently being cleaned up and streaks of bright red blood noted on the wipes. Patient denies any knowledge of hematochezia. Denies any pain Reports not eating much but there is some half eaten applesauce and soft foods on the bedside table denies any increased work of breathing. Review of Systems Review of Systems: All systems were reviewed and negative except as indicated in subjective above. Physical Exam Physical Exam: CONSTITUTIONAL: frail , cachectic, weak, vitals as above, NAD EYES: normal conjunctivae, no scleral icterus ENT: external ear and nose normal, MMM NECK: trachea midline RESPIRATORY: clear to auscultation bilaterally, no crackles, rales or wheezes, normal respiratory effort CARDIOVASCULAR: regular rate and rhythm, S1 and 2 heard without murmurs, gallops or rubs, no JVD, no peripheral edema CHEST: inspection of chest was normal GASTROINTESTINAL: firm but not distended, nontender to palpation, no guarding MUSCULOSKELETAL: generalized weakness and contracted LUE that doesn't easily move by passive movement of examiner. head is normocephalic and atraumatic, neck supple, normal palpation of chest wall without tenderness SKIN: warm and dry NEUROLOGIC: CN 2-12 grossly intact, normal cognition, normal speech, no tremor PSYCHIATRIC: alert cooperative and answering questions appropriately. Results & Data Results & Data ([facility]) Medications Administered Current Inpatient Medications Acetaminophen (Acetaminophen 325 Mg Tab) 650 mg PO Q4H PRN PRN Reason: pain/fever Stop: 11/01/21 20:51 Glycopyrrolate (Glycopyrrolate 0.2 Mg/Ml Vial) 0.2 mg IV Q4H PRN PRN Reason: Secretions or Pulm Congestion Stop: 11/07/21 09:47 Hydromorphone HCl (Hydromorphone Inj 0.5 Mg/0.5 Ml Syr) 0.5 mg IV Q1H PRN PRN Reason: Pain or SOB Stop: 10/22/21 09:47 Last Admin: 10/09/21 05:53 Dose: 0.5 mg Documented by: Lorazepam (Ativan) 0.5 mg in 1 mls @ 1 mls/min IV Q4H PRN PRN Reason: Anxiety/Agitation Stop: 11/07/21 09:47 Lorazepam (Lorazepam 0.5 Mg Tab) 0.5 mg PO Q4H PRN PRN Reason: Anxiety/Agitation Stop: 11/07/21 09:47 Ondansetron HCl (Ondansetron Inj 2 Mg/Ml 2 Ml Vial) 4 mg IV Q4H PRN PRN Reason: Nausea &/or Vomiting Stop: 11/07/21 09:47 Last Admin: 10/09/21 16:02 Dose: 4 mg Documented by: Ondansetron HCl (Ondansetron 4 Mg Od Tab) 4 mg SL Q4H PRN PRN Reason: Nausea &/or Vomiting Stop: 11/07/21 09:47 Polyethylene Glycol (Polyethylene (Miralax) 17 Gm Pack) 17 gm PO DAILY PRN PRN Reason: Constipation Stop: 11/01/21 20:51
[2021-10-10] MEDS: HYDROmorphone INJ 0.5 MG/0.5 ML SYR IV PRN (21:17)
[2021-10-11] MEDS: HYDROmorphone INJ 0.5 MG/0.5 ML SYR IV PRN ×2 (16:53→21:10)
--- NOTE | 2021-10-11 18:31 | Hospitalist Progress Note ---
Date of Service October 11, 2021 Assessment & Plan (1) Failure to thrive: (2) Comfort measures only status: (3) Colon cancer metastasized to liver: (4) Severe malnutrition: (5) Acute on chronic kidney failure: (6) UTI (urinary tract infection): (7) Weakness: (8) Ileocolic intussusception: (9) Elevated transaminase level: (10) Hyperbilirubinemia: Plan: In setting of recent diagnosis of metastatic adenocarcinoma consistent with colonic primary Had not yet established with oncology prior to admission Difficulty ambulating to kitchen and making food due to weakness, lives alone Patient has anorexia with poor food and fluid intake Worsening renal function Had pauses on tele some nights ago and diltiazem and metoprolol were discontinued Grew staph in blood cultures and was started on vancomycin. Repeat blood cultures negative. Patient had conversation with surgical specialist Dr. Sanchez on 10/08/21 and opted to proceed with full comfort measures and discontinue all active treatment. Patient currently on comfort care measures Cont comfort measures support at this time. Guarded prognosis. Mickie Saucedo DO [facility] Hospitalist Admission and Anticipated Discharge Date Admission Date: October 02, 2021 Subjective 75yo M with a PMH of recently diagnosed colon cancer with metastasis to liver, CKD, history of CVA with residual hemiparesis, HTN who presents with increased weakness and difficulty ambulating at home. continues to have blood clots in BMs per nurse asking for some pain meds and to be readjusted. Reports not eating much denies any increased work of breathing. Review of Systems Review of Systems: limited ROS 2/2 severe illness of patient and his fatigue level. Physical Exam Physical Exam: CONSTITUTIONAL: frail , cachectic, weak, vitals as above, NAD EYES: normal conjunctivae, no scleral icterus ENT: external ear and nose normal, MMM NECK: trachea midline RESPIRATORY: clear to auscultation bilaterally, no crackles, rales or wheezes, normal respiratory effort CARDIOVASCULAR: regular rate and rhythm, S1 and 2 heard without murmurs, gallops or rubs, no JVD, trace peripheral edema in bilateral lower extremities. CHEST: inspection of chest was normal GASTROINTESTINAL: firm but not distended, nontender to palpation, no guarding MUSCULOSKELETAL: generalized weakness and contracted LUE that doesn't easily move by passive movement of examiner. head is normocephalic and atraumatic, neck supple, normal palpation of chest wall without tenderness SKIN: warm and dry NEUROLOGIC: CN 2-12 grossly intact, normal cognition, normal speech, no tremor PSYCHIATRIC: fatigued, cooperative, and answering questions appropriately. Results & Data Results & Data ([facility]) Vital Signs (Past 12 Hours) Vital Signs Temp Pulse Resp BP Pulse Ox 10/11/21 07:55 36.4 C L 85 22 82/34 L 100 Medications Administered Current Inpatient Medications Acetaminophen (Acetaminophen 325 Mg Tab) 650 mg PO Q4H PRN PRN Reason: pain/fever Stop: 11/01/21 20:51 Glycopyrrolate (Glycopyrrolate 0.2 Mg/Ml Vial) 0.2 mg IV Q4H PRN PRN Reason: Secretions or Pulm Congestion Stop: 11/07/21 09:47 Hydromorphone HCl (Hydromorphone Inj 0.5 Mg/0.5 Ml Syr) 0.5 mg IV Q1H PRN PRN Reason: Pain or SOB Stop: 10/22/21 09:47 Last Admin: 10/11/21 16:53 Dose: 0.5 mg Documented by: Lorazepam (Ativan) 0.5 mg in 1 mls @ 1 mls/min IV Q4H PRN PRN Reason: Anxiety/Agitation Stop: 11/07/21 09:47 Lorazepam (Lorazepam 0.5 Mg Tab) 0.5 mg PO Q4H PRN PRN Reason: Anxiety/Agitation Stop: 11/07/21 09:47 Ondansetron HCl (Ondansetron Inj 2 Mg/Ml 2 Ml Vial) 4 mg IV Q4H PRN PRN Reason: Nausea &/or Vomiting Stop: 11/07/21 09:47 Last Admin: 10/09/21 16:02 Dose: 4 mg Documented by: Ondansetron HCl (Ondansetron 4 Mg Od Tab) 4 mg SL Q4H PRN PRN Reason: Nausea &/or Vomiting Stop: 11/07/21 09:47 Polyethylene Glycol (Polyethylene (Miralax) 17 Gm Pack) 17 gm PO DAILY PRN PRN Reason: Constipation Stop: 11/01/21 20:51
--- NOTE | 2021-10-12 16:16 | Communication Note ---
Date of Service: October 12, 2021 NOTE: Contacted by nurse that patient ceased to breathe. On arrival to bedside, his siblings are present. The patient is motionless and doesn't respond to physical stimulation or painful press to fingernail bed. Pupils are fixed and dilated. Skin is warm and dry with a jaundiced appearance. No audible heart or breath sounds to auscultation. Time of 4:09pm Mickie Saucedo DO [facility] Hospitalist
--- NOTE | 2021-10-12 16:18 | Discharge Summary ---
Date of Service October 12, 2021 Admission HPI Per Admitting Provider This is a 75yo M with a PMH of recently diagnosed colon cancer with metastasis to liver, CKD, history of CVA with risidual hemiparesis, HTN who presents with increased weakness and difficulty ambulating at home. Has felt hungry but is too weak to ambulate to and from kitchen and get food. Is not had much of anything to eat in the past week. Symptoms have been worsening over the past 2- 3 weeks. Was hospitalized at the beginning of the month for similar symptoms and diagnosed with colon cancer at that time. Pathology showed metastatic adenocarcinoma consistent with colonic primary. Has an appointment to establish with Dr. Troncoso of oncology group tomorrow but has not yet been seen and is not on any treatment. Lives alone with family in [place]. 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 Currently feeling generally weak and nauseated. Feels very hungry and willing to try clears. Did have one episode of bilious emesis during interview. Given Zofran. No fever, chills, chest pain, palpitations, shortness of breath, abdominal pain, dysuria, diarrhea constipation. Continue IV fluids, [facility] so he can be seen during admission. Fall precautions, PT and OT ordered. Admission Exam Per Admitting Provider Exam: In acute distress and cachetic Cardiac: normal S1/S2, no murmur Lungs: CTA Abd: ND, soft, NT MSK: No edema Psych: AAOx3 Principal Diagnosis Failure to thrive Severe malnutrition Colon cancer metastasized to liver Elevated transaminase level Hyperbilirubinemia Acute on chronic kidney failure Ileocolonic intussusception secondary to colon cancer UTI Discharge Exam see note. Discharge Data Allergies Allergy/AdvReac Type Severity Reaction Status Date / Time No Known Allergies Allergy Unknown Verified 10/02/21 16:21 Consultations 10/02/21 17:01 ED Decision to Admit Stat 10/02/21 18:30 Consult Oncology Routine 10/03/21 08:00 Consult Gastroenterology Routine 10/03/21 08:08 Consult Nephrology Routine 10/03/21 17:44 Consult Palliative Care Routine 10/04/21 08:00 Consult Cardiology Routine 10/08/21 09:48 Consult Palliative Care Routine Ordered Studies Laboratory Results WBC 16.72 K/uL (4.8-10.8) H 10/08/21 05:36 RBC 2.51 M/uL (4.7-6.1) L 10/08/21 05:36 Hgb 8.1 g/dL (14.0-18.0) L 10/08/21 05:36 Hct 24.5 % (42-52) L 10/08/21 05:36 MCV 97.6 fL (80-100) 10/08/21 05:36 MCH 32.3 pg (25-34) 10/08/21 05:36 MCHC 33.1 g/dL (32-36) 10/08/21 05:36 RDW Std Deviation 81.7 fL (36.4-46.3) H 10/08/21 05:36 RDW Coeff of Cliff 24.6 % (11.5-14.5) H 10/08/21 05:36 Plt Count 137 K/uL (130-400) 10/08/21 05:36 MPV 10.9 fL (7.4-10.4) H 10/08/21 05:36 Immature Gran % (Auto) 1.4 % 10/02/21 14:40 Neut % (Auto) 88.2 % 10/02/21 14:40 Lymph % (Auto) 4.5 % 10/02/21 14:40 [place] % (Auto) 5.8 % 10/02/21 14:40 Eos % (Auto) 0.0 % 10/02/21 14:40 Baso % (Auto) 0.1 % 10/02/21 14:40 Neut # (Auto) 14.43 K/uL (1.4-6.5) H 10/02/21 14:40 Lymph # (Auto) 0.74 K/uL (1.2-3.4) L 10/02/21 14:40 [place] # (Auto) 0.95 K/uL (0.11-0.59) H 10/02/21 14:40 Eos # (Auto) 0.00 K/uL (0-0.5) 10/02/21 14:40 Baso # (Auto) 0.01 K/uL (0-0.2) 10/02/21 14:40 Immature Gran # (Auto) 0.23 K/uL (0.00-0.02) H 10/02/21 14:40 Absolute Nucleated RBC 0.02 K/uL (0-0) H 10/08/21 05:36 Nucleated RBC % (auto) 0.1 % 10/08/21 05:36 Anisocytosis Present 10/02/21 14:40 Target Cells 2+ 10/02/21 14:40 PT 14.6 Seconds (9.0-12.0) H 10/02/21 14:40 INR 1.5 (0.9-1.1) H 10/02/21 14:40 Sodium 135 mmol/L (136-145) L 10/08/21 05:36 Potassium 5.0 mmol/L (3.5-5.1) 10/08/21 05:36 Chloride 95 mmol/L (98-107) L 10/08/21 05:36 Carbon Dioxide 20 mmol/L (21-32) L 10/08/21 05:36 Anion Gap 20.0 (3-11) H 10/08/21 05:36 BUN 90 mg/dl (7-18) H 10/08/21 05:36 Creatinine 5.60 mg/dl (0.6-1.4) H* D 10/08/21 05:36 Est Cr Clr Drug Dosing 10.3 ml/min 10/08/21 05:36 Est GFR ( Amer) 10.7 ml/min 10/08/21 05:36 Est GFR (Non-Af Amer) 9.3 ml/min 10/08/21 05:36 BUN/Creatinine Ratio 16.0 (10-20) 10/08/21 05:36 Glucose 73 mg/dl (70-99) 10/08/21 05:36 POC Glucose 106 mg/dl (70-99) H 10/07/21 07:07 Calcium 7.6 mg/dl (8.5-10.1) L 10/08/21 05:36 Phosphorus 5.3 mg/dl (2.5-4.9) H 10/08/21 05:36 Magnesium 2.2 mg/dl (1.8-2.4) 10/08/21 05:36 Total Bilirubin 5.7 mg/dl (0.2-1) H 10/04/21 04:41 Direct Bilirubin 5.4 mg/dl (0-0.2) H 10/03/21 05:28 AST 499 U/L (15-37) H 10/04/21 04:41 ALT 124 U/L (12-78) H 10/04/21 04:41 Alkaline Phosphatase 299 U/L (45-117) H 10/04/21 04:41 Troponin I < 0.015 ng/ml (0-0.045) 10/02/21 14:40 Total Protein 6.0 gm/dl (6.4-8.2) L 10/04/21 04:41 Albumin 1.6 gm/dl (3.4-5.0) L 10/04/21 04:41 Globulin 4.4 gm/dl (2.5-4.0) H 10/04/21 04:41 Albumin/Globulin Ratio 0.4 (0.9-2) L 10/04/21 04:41 Urine Color Dark Yellow 10/02/21 18:34 Urine Appearance Cloudy (Clear) A 10/02/21 18:34 Urine pH 5.0 (4.5-7.5) 10/02/21 18:34 Ur Specific [place] 1.018 (1.000-1.030) 10/02/21 18:34 Urine Protein 1+ (Negative) H 10/02/21 18:34 Urine Glucose (UA) Negative (Negative) 10/02/21 18:34 Urine Ketones Trace (Negative) H 10/02/21 18:34 Urine Blood Negative (Negative) 10/02/21 18:34 Urine Nitrite Positive (Negative) A 10/02/21 18:34 Urine Bilirubin 2+ (Negative) H 10/02/21 18:34 Urine Urobilinogen Negative (Negative) 10/02/21 18:34 Ur Leukocyte Esterase Trace (Negative) H 10/02/21 18:34 Urine WBC (Auto) 1-5 /hpf (0-5) 10/02/21 18:34 Urine RBC (Auto) 0-4 /hpf (0-4) 10/02/21 18:34 U Hyaline Cast (Auto) 10-30 /lpf (0-5) H 10/02/21 18:34 U Epithel Cells (Auto) 20-30 /lpf (0-5) H 10/02/21 18:34 Urine Bacteria (Auto) Negative (Negative) 10/02/21 18:34 Amorphous Sediment Present (None Prsent) A 10/02/21 18:34 WBC Casts 1-5 /lpf (0) H 10/02/21 18:34 Urine Mucus Present (None Prsent) A 10/02/21 18:34 Urine Yeast Not Reportable 10/02/21 18:34 Random Vancomycin 10.6 mcg/ml 10/08/21 05:36 Hepatitis C Ab Screen Neg (Neg) 10/04/21 04:41 SARS-CoV-2, RNA, NAAT NEGATIVE (NEGATIVE) 10/02/21 16:05 Bld Cult Staph aureus PCR Negative (Negative) 10/06/21 09:11 Blood Culture MRSA PCR Negative (Negative) 10/06/21 09:11 Impressions Chest X-Ray 10/02/21 14:02 XR chest 1V portable CLINICAL HISTORY: weakness COMPARISON STUDY: Chest radiograph and chest CT September 10, 2021. FINDINGS: Levoscoliosis of the mid to upper thoracic spine is noted. Patient may be mildly rotated Lung volumes are normal. Lungs are clear. There is no pneumothorax or pleural effusion. Cardiac size is normal. Mediastinal contours are normal. There is no evidence for pulmonary edema. IMPRESSION: No acute cardiopulmonary findings. No change in appearance of the chest. ACT 112: Negative or not required by law. Electronically signed by: Conor Salinas M.D. 10/02/2021 2:31 PM Abdomen/Pelvis CT 10/02/21 21:37 CT OF THE ABDOMEN AND PELVIS WITHOUT CONTRAST CLINICAL HISTORY: elevated LFTs and bili, N/V COMPARISON STUDY: CT of the abdomen and pelvis September 10, 2021. TECHNIQUE: Axial images of the abdomen and pelvis were obtained without IV contrast. Images were reviewed in the axial, sagittal, and coronal planes. Automated exposure control was utilized for the study. A dose lowering technique was utilized adhering to the principles of ALARA. FINDINGS: A 7 mm irregular linear density within the left lower lobe is noted. Evaluation of the abdomen and pelvis is suboptimal on this unenhanced examination. No pneumatosis, free air or portal venous gas is present. Innumerable hepatic masses are again noted. Index left hepatic lobe mass measures 3.6 cm. A hyperdense segment 6 hepatic lesion measures 2.8 cm. The liver is enlarged. Small amount of ascites is noted. This has increased. There is no evidence for a bowel obstruction. Unenhanced images of the spleen, adrenal glands, kidneys and pancreas are unremarkable. There is no hydronephrosis. Note is again made of a long segment ileal colonic intussusception. This was present on prior CT. Pathologic 1.9 x 1.3 cm ileocolic lymph node is present. There is nonspecific right thigh edema. Anasarca is present. No suspicious lesions are identified within the visualized skeletal structures. IMPRESSION: 1. Redemonstration of innumerable hepatic masses consistent with metastatic disease and a ileocolonic intussusception which raises the possibility of a primary colonic neoplasm as the lead point. 2. Small amount of ascites within the abdomen and pelvis. Anasarca. 3. Nonspecific right thigh edema. 4. Pathologic ileocolic lymph node. ACT 112: Negative or not required by law. Electronically signed by: Conor Salinas M.D. 10/03/2021 8:16 AM Cholangiopancreatography MRI 10/03/21 05:08 MRCP CLINICAL HISTORY: elevated bilirubin, known liver mets, eval for blockage TECHNIQUE: Utilizing a 1.5 Michelle magnet and dedicated coil, multiplanar, multiecho imaging of the upper abdomen was performed utilizing heavily T2 weighted pulsing sequences without IV contrast. This study could not be completed due to patient's inability to remain supine. COMPARISON STUDY: CT of the abdomen and pelvis October 02, 2021. FINDINGS: This study could not be completed due to patient's inability to remain supine. Trace right pleural effusion is noted. Innumerable hepatic lesions are noted. These measure up to approximately 5.7 cm. The liver is enlarged. No intra or extra hepatic biliary ductal dilatation is identified. Sensitivity for detection of common bile duct calculi is diminished on this exam. A small amount of ascites is noted. Unenhanced images of the spleen, adrenal glands, kidneys and pancreas are grossly unremarkable. The ileocolonic intussusception shown on CT is partially imaged on this examination. IMPRESSION: 1. Innumerable hepatic masses consistent with metastatic disease. 2. Incomplete exam, as described above. However, no biliary ductal dilatation. 3. Small amount of ascites. 4. Partially visualized ileocolonic intussusception, better depicted on CT of October 02, 2021. ACT 112: Negative or not required by law. Electronically signed by: Conor Salinas M.D. 10/03/2021 9:46 AM Hospital Course (1) Comfort measures only status: (2) Failure to thrive: (3) Severe malnutrition: (4) Colon cancer metastasized to liver: (5) Acute on chronic kidney failure: (6) UTI (urinary tract infection): (7) Ileocolic intussusception: (8) Elevated transaminase level: (9) Hyperbilirubinemia: 75-year-old man with metastatic colon cancer presented for increasing weakness. He was observed to be malnourished and was admitted to the hospitalist service. He had acute kidney injury with elevated LFTs and a bilirubin of 7.1. INR was mildly elevated at 1.5. GI was consulted. He was placed on ceftriaxone IV for UTI. He was also noted to have an ileocolonic intussusception on imaging likely related to primary colon cancer. CT abdomen pelvis also revealed liver masses consistent with metastatic disease. He was tolerating a clear liquid diet. Nephrology was consulted in the setting of acute on chronic renal failure. He was given dextrose with sodium bicarb for electrolyte abnormalities including an anion gap metabolic acidosis likely from starvation and diarrhea respectively. He was not considered a renal biopsy candidate and was clearly malnourished with liver disease. He began passing jellylike stools with blood in them. Cardiology was consulted after he was noted to have several pauses on telemetry. It was felt his cardiac arrhythmias were multifactorial due to dehydration and electrolyte abnormalities. An echocardiogram revealed no significant valvular pathology and an ejection fraction of 70%. Left and right systolic function was normal and there was a small anterior pericardial effusion at the apex. No additional cardiac testing was recommended at this time. His rhythm was stable for the next 24 hours and cardiology signed off the case. At this point palliative care was consulted. It was clear that he was not responding well to resuscitation efforts and that he was dying. He was transitioned to comfort care measures and did not experience significant pain ultimately passing comfortably on 10/12 at 4:09 PM. Family was at the bedside. Total Time Total Time Spent Total Time Spent (In Minutes): 60 Discharge Plan Discharge Items Patient Disposition: Reason For Visit: COLON CANCER WITH METS, WEAK AND DEHYDRATED Discharge Diagnosis: Failure to thrive Severe malnutrition Colon cancer metastasized to liver Elevated transaminase level Hyperbilirubinemia Acute on chronic kidney failure Ileocolonic intussusception secondary to colon cancer UTI Follow-up/Referrals: Rajiv Monsalve DO [Primary Care Provider] - Medications and DC Order Prescriptions: No Action diltiazem HCl 180 mg capsule,extended release 24hr 360 mg PO DAILY RF: 0 simvastatin 20 mg tablet 20 mg PO DAILY RF: 0 metoprolol tartrate 25 mg tablet 12.5 mg PO BID RF: 0 cholecalciferol (vitamin D3) [Vitamin D3] 50 mcg (2,000 unit) capsule 2,000 unit PO DAILY RF: 0 calcitriol 0.5 mcg capsule 0.5 mcg PO DAILY RF: 0 Admission Data Admit Date/Time: 10/02/21 18:23 Attending Provider: Mickie Saucedo Admit Provider: Ramy Pacheco Primary Care Provider: Rajiv Monsalve Other Providers: Jeannie Sanchez ; Ramy Pacheco ; Vibha Ferguson ; Jelani Levin ; Anusha Bullard ; Ming Black ; Toñito Lazcano ; Chong Garza ; Dimas Rosario ; Ru Mason ; Eduar Moon ; Joan Chui ; Yadira Pope ; Rebekah Duron ; Dre Santiago Other Date/Time: 10/12/21 04:09
== END 2021-10-12 18:42 | disposition expired | DRG 374 ==
LOC: ED 13:12 → SUATTDRO 18:23 → 3N 18:23 → 1E 21:38 → 3N 10-08 22:59
DX: N39.0 Urinary tract infection, site not specified; K56.1 Intussusception; Z51.5 Encounter for palliative care; R78.81 Bacteremia; E87.2 Acidosis; E80.6 Other disorders of bilirubin metabolism; C78.7 Secondary malignant neoplasm of liver and intrahepatic bile duct; R18.8 Other ascites; E78.5 Hyperlipidemia, unspecified; C18.9 Malignant neoplasm of colon, unspecified; R62.7 Adult failure to thrive; E86.0 Dehydration; Z66 Do not resuscitate; I69.354 Hemiplegia and hemiparesis following cerebral infarction affecting left non-dominant side; E43 Unspecified severe protein-calorie malnutrition; E87.0 Hyperosmolality and hypernatremia; I12.9 Hypertensive chronic kidney disease with stage 1 through stage 4 chronic kidney disease, or unspecified chronic kidney disease; N17.9 Acute kidney failure, unspecified; N18.30 Chronic kidney disease, stage 3 unspecified